=== PATIENT | female | born 1955 | race Caucasian/White ===

== ENCOUNTER → 2025-01-01 07:54 | Outpatient (REF) | payer BC, SELFPAY | LOC: PET 07:54 | PROVIDERS: ATTENDING PHYSICIAN Internal Medicine Hematology & Oncology | DX: C26.9 Malignant neoplasm of ill-defined sites within the digestive system (principal); C79.51 Secondary malignant neoplasm of bone | CPT/HCPCS: 78815; A9552 ==

== ENCOUNTER 2025-01-14 07:02 | Inpatient (IN) | payer BC, MEDICARE, SELFPAY ==
[2025-01-13] VITALS (9 sets, daily range): BP systolic 117–138; BP diastolic 73–87; BMI 23.9
[2025-01-13 11:10] LABS: % Basophils 0.6 % (0-2); % Eosinophils 0.3 % (0-6); % Immature Granulocytes 0.6 % (0-0.5); % Lymphocytes 12.1 % (20.5-51.1); % Monocytes 7.5 % (1.7-9.3); % Neutrophils 78.9 % (42.2-75.2); Absolute Basophils 0.1 10^3/uL (0-0.2); Absolute Immature Granulocytes 0.1 10^3/uL (0-0.05); Absolute Lymphocytes 1.5 10^3/uL (1.2-3.4); Absolute Monocytes 0.9 10^3/uL (0.1-0.6); Absolute Neutrophils 9.8 10^3/uL (1.4-6.5); Hematocrit 31.2 % (37.0-47.0); Hemoglobin 9.9 g/dL (12.0-16.0); Mean Corp Hgb Conc. 31.7 g/dL (33.0-37.0); Mean Corpuscular Hgb 26.5 pg (27.0-31.0); Mean Corpuscular Volume 83.6 fL (81.0-99.0); Mean Platelet Volume 10.3 fL (7.4-10.4); Nucleated Red Blood Cells % 0 %; Platelet Count 260 10^3/uL (130-400); Red Blood Cell Count 3.73 10^6/uL (4.20-5.40); Red Cell Dist. Width 16.4 % (11.5-14.5); White Blood Cell Count 12.4 10^3/uL (4.8-10.8)
[2025-01-13 11:21] LABS: ALT (SGPT) 22 U/L (0-35); AST (SGOT) 35 U/L (14-36); Albumin 3.7 g/dl (3.5-5.0); Alkaline Phosphatase 654 U/L (38-126); Blood Urea Nitrogen 16 mg/dl (7-17); Calcium 9.3 mg/dl (8.4-10.2); Carbon Dioxide 28 mmol/L (22-30); Chloride 99 mmol/L (98-107); Glucose 122 mg/dl (70-99); Lipase 37 U/L (23-300); Potassium 4.9 mmol/L (3.5-5.1); Sodium 134 mmol/L (135-145); Total Protein 6.4 g/dl (6.3-8.2); eGFR > 60.00
[2025-01-13 11:35] LABS: COVID-19 Antigen Negative (Negative)
[2025-01-13] MEDS: ZOFRAN 4 MG IV (11:50)
--- NOTE | 2025-01-13 12:09 | ED.GENMED ---
History of Present Illness
<Guy Scott DO - Last Filed: 01/13/25 13:09>
General
Chief Complaint: Weakness
Source: patient, spouse and other
Exam Limitations: none
Time Seen by Provider: 01/13/25 11:00
Nursing documentation reviewed up to this point in time: agreed with
History of Present Illness
History of Present Illness:
69-year-old female referred from radiation oncology recently diagnosed with metastatic cancer unknown primary working with Dr. Ritter scheduled to see Dr. Nick this week she had 2 radiation treatments to her lumbar spine, had a bone scan
recently, around 130 had some weakness of right leg pain in her low back, got radiation today practitioner referred her here for an urgent MRI of the thoracic spine tells me that her weakness is actually improved she is able to lift her legs up off
the bed now,
Review of Systems
<Guy Scott DO - Last Filed: 01/13/25 13:09>
Review of Systems
All Other Systems: Not applicable
Constitutional: Reports fatigue
ABD/GI: Reports nausea
Neurological: Reports weakness
Phy Exam
<Guy Scott DO - Last Filed: 01/13/25 13:09>
Physical Exam
Physical Exam:
Physical Exam
General: no apparent distress, not acutely ill
Neck: No jaundice
Heart: s1/s2 regular rate and rhythm, no murmur. equal radial pulses.
Lungs: no acute respiratory distress. clear bilaterally
Abdomen: Soft nontender
Neuro: alert and oriented. Able to lift her legs off the bed symmetric ankle refill
Skin: no rash
Psychiatric: well kept. interactive and cooperative
Extremities: no edema.
Course
<Guy Scott DO - Last Filed: 01/13/25 13:09>
Orders/Labs/Results
Orders:
Orders
01/13/25 Breakfast
Cholesterol Lowering
At Your Request: Limited Participation
Cholesterol Lowering: Sodium, 2 Gram
01/13/25 10:46
Electrocardiogram (*1) Urgent
Reason for Study: Fatigue / Weakness
EKG- Treatment ONCE
01/13/25 10:55
COVID-19 Antigen Urgent
Source: Nasal Swab
Complete Blood Count/With Diff Urgent
Comprehensive Metabolic Panel Urgent
Ferritin Urgent
Comment: ADD ON
Folate Urgent
Comment: ADD ON
Iron Urgent
Comment: ADD ON
Lipase Urgent
Magnesium Urgent
Comment: ADD ON
TSH Reflex To Free T4 Urgent
Vitamin B12 Urgent
Comment: ADD ON
Influenza A+B Rapid Molecular Urgent
GEOVANNA Source: Nasal Swab
Specimen Description:
01/13/25 11:28
Add On- LAB Urgent
Tests Added?: magnesium
Ondansetron Injectable [Zofran] 4 mg IV NOW STA
01/13/25 11:32
MR Thoracic Spine W/o & With Stat
Comment:
Reason For Exam: leg weaknesss, mets
OK for patient to be off Cardiac Monitoring for MRI: Yes
Recent pill cam endoscopy?: No
01/13/25 11:33
Promethazine [Phenergan] 25 mg 0.9% Sodium Chloride 50 ml [Nss] 50 ml IV NOW
01/13/25 11:40
Bladder Scan- Treatment ONCE
01/13/25 15:30
HYDROmorphone [Dilaudid] 0.5 mg IV NOW STA
01/13/25 17:00
0.9% Sodium Chloride 500 ml [Nss] 500 ml IV 100 mls/hr
01/13/25 17:07
Add On- LAB Stat
Tests Added?: iron, b12, ferritin, folate
01/13/25 17:08
Admit/Transfer Patient As Directed
Co-Sign Provider:
Level of Care: Observation services
Assign to:: Telemetry
Physician / Group: len
Diagnosis: weakness
Reason for Telemetry: Arrhythmia
Date to Stop Telemetry: 01/16/25
Time to Stop Telemetry: 11:00
PRN Pain Medication Management As Directed
May give lesser potent ordered pain med per pt: Yes
preference::
Protocol:: Medication orders for pain may be administered in a
manner that supports deferring to patient preference
when the pt is:
- Requesting an ordered lesser potent pain medication.
Least to most potent pain medications are defined
as: acetaminophen < NSAID < tramadol < opioids
(morphine, oxycodone, hydromorphone).
- Requesting a lesser dose of the same medication IF
ORDERED.
- Requesting a less intrusive route of administration
if both routes are prescribed by the provider (PO <
IV).
01/13/25 17:09
Code Status As Directed
Resuscitation Status: Full Code
01/13/25 17:15
Colon Surgery Consult [ColoRectal Surgery Consult] Routine
Consulting Provider: Stef Nick
Was physician already notified: Yes
ONCOLOGY CONSULT Routine
Consulting Provider: Jose Ritter
Was physician already notified: Yes
01/13/25 18:13
MR Brain W/o & With Contrast Routine
Reason For Exam: weakness
Recent pill cam endoscopy?: No
MR Lumbar W/o & With Contrast Routine
Reason For Exam: weakness
Recent pill cam endoscopy?: No
01/13/25 18:18
Acetaminophen [Tylenol] 650 mg PO Q4HPRN PRN
Bisacodyl [Dulcolax] 10 mg RECTAL [id number] PRN
Docusate W/Senna [Senokot-S] 1 tablet PO BIDPRN PRN
Enoxaparin Sodium [Lovenox] 40 mg SC QPM
Polyethylene Glycol Powder [Miralax] 17 grams PO DAILYPRN PRN
Prochlorperazine [Compazine] 5 mg PO TIDPRN PRN
01/13/25 18:18
Activity As Directed
Activity Level: As Tolerated
Vital Signs As Directed
Frequency: Per unit guidelines
DX Deep Vein Thrombosis Video Routine
01/13/25 18:23
Morphine Sulfate 30 mg PO Q4HPRN PRN
01/13/25 20:00
Morphine Sulfate Extended Rel. [Ms Contin (Extended Release)] 15 mg PO Q12
01/14/25 06:00
Complete Blood Count/No Diff IN AM
Occupational Therapy Consult [Ot Eval And Treat] IN AM
Physical Therapy Consult [Pt Eval And Treat] IN AM
Activity Level: As Tolerated
01/14/25 08:00
Ascorbic Acid [Vitamin C] 500 mg PO DAILY
Cholecalciferol (Vitamin D3) [VITAMIN D3 (cholecalciferol)] 50 mcg PO DAILY
Lisinopril [Zestril] 5 mg PO DAILY
Meloxicam [Mobic] 15 mg PO DAILY
Multivitamin [Theragran] 1 tablet PO DAILY
Polyethylene Glycol Powder [Miralax] 17 grams PO Q72H
Sennosides [Senokot] 17.2 mg PO DAILY
Zinc 50mg (Zinc Sulfate 220mg) [Zinc] 50 mg PO DAILY
01/16/25 11:00
DC Protocol for Telemetry ONCE
Abnormal Lab Results
01/13/25
10:55
WBC 12.4 H 10^3/uL
(4.8-10.8)
RBC 3.73 L 10^6/uL
(4.20-5.40)
Hgb 9.9 L g/dL
(12.0-16.0)
Hct 31.2 L %
(37.0-47.0)
MCH 26.5 L pg
(27.0-31.0)
MCHC 31.7 L g/dL
(33.0-37.0)
RDW 16.4 H %
(11.5-14.5)
Abs Immat Gran (auto) 0.1 H 10^3/uL
(0-0.05)
Absolute Neuts (auto) 9.8 H 10^3/uL
(1.4-6.5)
Absolute Monos (auto) 0.9 H 10^3/uL
(0.1-0.6)
Immature Gran % 0.6 H %
(0-0.5)
Neutrophils % 78.9 H %
(42.2-75.2)
Lymphocytes % 12.1 L %
(20.5-51.1)
Sodium 134 L mmol/L
(135-145)
Creatinine 0.5 L mg/dL
(0.6-1.0)
Glucose 122 H mg/dl
(70-99)
Ferritin 367.0 H ng/ml
(11.1-264.0)
Alkaline Phosphatase 654 H U/L
(38-126)
01/13/25 10:55
01/13/25 10:55
Vital Signs
Initial and Last Documented VS:
Initial Vital Signs
Temp Pulse Resp BP Pulse Ox
97.9 F 108 18 138/84 100
01/13/25 10:34 01/13/25 10:34 01/13/25 10:34 01/13/25 10:34 01/13/25 10:34
Last Documented Vital Signs
Temp Pulse Resp BP Pulse Ox
98.2 F 109 18 122/74 98
01/13/25 18:34 01/13/25 18:34 01/13/25 18:34 01/13/25 18:34 01/13/25 18:34
<Maulik Sarah MD - Last Filed: 01/13/25 19:11>
Orders/Labs/Results
Orders:
Orders
01/13/25 Breakfast
Cholesterol Lowering
At Your Request: Limited Participation
Cholesterol Lowering: Sodium, 2 Gram
01/13/25 10:46
Electrocardiogram (*1) Urgent
Reason for Study: Fatigue / Weakness
EKG- Treatment ONCE
01/13/25 10:55
COVID-19 Antigen Urgent
Source: Nasal Swab
Complete Blood Count/With Diff Urgent
Comprehensive Metabolic Panel Urgent
Ferritin Urgent
Comment: ADD ON
Folate Urgent
Comment: ADD ON
Iron Urgent
Comment: ADD ON
Lipase Urgent
Magnesium Urgent
Comment: ADD ON
TSH Reflex To Free T4 Urgent
Vitamin B12 Urgent
Comment: ADD ON
Influenza A+B Rapid Molecular Urgent
GEOVANNA Source: Nasal Swab
Specimen Description:
01/13/25 11:28
Add On- LAB Urgent
Tests Added?: magnesium
Ondansetron Injectable [Zofran] 4 mg IV NOW STA
01/13/25 11:32
MR Thoracic Spine W/o & With Stat
Comment:
Reason For Exam: leg weaknesss, mets
OK for patient to be off Cardiac Monitoring for MRI: Yes
Recent pill cam endoscopy?: No
01/13/25 11:33
Promethazine [Phenergan] 25 mg 0.9% Sodium Chloride 50 ml [Nss] 50 ml IV NOW
01/13/25 11:40
Bladder Scan- Treatment ONCE
01/13/25 15:30
HYDROmorphone [Dilaudid] 0.5 mg IV NOW STA
01/13/25 17:00
0.9% Sodium Chloride 500 ml [Nss] 500 ml IV 100 mls/hr
01/13/25 17:07
Add On- LAB Stat
Tests Added?: iron, b12, ferritin, folate
01/13/25 17:08
Admit/Transfer Patient As Directed
Co-Sign Provider:
Level of Care: Observation services
Assign to:: Telemetry
Physician / Group: len
Diagnosis: weakness
Reason for Telemetry: Arrhythmia
Date to Stop Telemetry: 01/16/25
Time to Stop Telemetry: 11:00
PRN Pain Medication Management As Directed
May give lesser potent ordered pain med per pt: Yes
preference::
Protocol:: Medication orders for pain may be administered in a
manner that supports deferring to patient preference
when the pt is:
- Requesting an ordered lesser potent pain medication.
Least to most potent pain medications are defined
as: acetaminophen < NSAID < tramadol < opioids
(morphine, oxycodone, hydromorphone).
- Requesting a lesser dose of the same medication IF
ORDERED.
- Requesting a less intrusive route of administration
if both routes are prescribed by the provider (PO <
IV).
01/13/25 17:09
Code Status As Directed
Resuscitation Status: Full Code
01/13/25 17:15
Colon Surgery Consult [ColoRectal Surgery Consult] Routine
Consulting Provider: Stef Nick
Was physician already notified: Yes
ONCOLOGY CONSULT Routine
Consulting Provider: Jose Ritter
Was physician already notified: Yes
01/13/25 18:13
MR Brain W/o & With Contrast Routine
Reason For Exam: weakness
Recent pill cam endoscopy?: No
MR Lumbar W/o & With Contrast Routine
Reason For Exam: weakness
Recent pill cam endoscopy?: No
01/13/25 18:18
Acetaminophen [Tylenol] 650 mg PO Q4HPRN PRN
Bisacodyl [Dulcolax] 10 mg RECTAL [id number] PRN
Docusate W/Senna [Senokot-S] 1 tablet PO BIDPRN PRN
Enoxaparin Sodium [Lovenox] 40 mg SC QPM
Polyethylene Glycol Powder [Miralax] 17 grams PO DAILYPRN PRN
Prochlorperazine [Compazine] 5 mg PO TIDPRN PRN
01/13/25 18:18
Activity As Directed
Activity Level: As Tolerated
Vital Signs As Directed
Frequency: Per unit guidelines
DX Deep Vein Thrombosis Video Routine
01/13/25 18:23
Morphine Sulfate 30 mg PO Q4HPRN PRN
01/13/25 20:00
Morphine Sulfate Extended Rel. [Ms Contin (Extended Release)] 15 mg PO Q12
01/14/25 06:00
Complete Blood Count/No Diff IN AM
Occupational Therapy Consult [Ot Eval And Treat] IN AM
Physical Therapy Consult [Pt Eval And Treat] IN AM
Activity Level: As Tolerated
01/14/25 08:00
Ascorbic Acid [Vitamin C] 500 mg PO DAILY
Cholecalciferol (Vitamin D3) [VITAMIN D3 (cholecalciferol)] 50 mcg PO DAILY
Lisinopril [Zestril] 5 mg PO DAILY
Meloxicam [Mobic] 15 mg PO DAILY
Multivitamin [Theragran] 1 tablet PO DAILY
Polyethylene Glycol Powder [Miralax] 17 grams PO Q72H
Sennosides [Senokot] 17.2 mg PO DAILY
Zinc 50mg (Zinc Sulfate 220mg) [Zinc] 50 mg PO DAILY
01/16/25 11:00
DC Protocol for Telemetry ONCE
Abnormal Lab Results
01/13/25
10:55
WBC 12.4 H 10^3/uL
(4.8-10.8)
RBC 3.73 L 10^6/uL
(4.20-5.40)
Hgb 9.9 L g/dL
(12.0-16.0)
Hct 31.2 L %
(37.0-47.0)
MCH 26.5 L pg
(27.0-31.0)
MCHC 31.7 L g/dL
(33.0-37.0)
RDW 16.4 H %
(11.5-14.5)
Abs Immat Gran (auto) 0.1 H 10^3/uL
(0-0.05)
Absolute Neuts (auto) 9.8 H 10^3/uL
(1.4-6.5)
Absolute Monos (auto) 0.9 H 10^3/uL
(0.1-0.6)
Immature Gran % 0.6 H %
(0-0.5)
Neutrophils % 78.9 H %
(42.2-75.2)
Lymphocytes % 12.1 L %
(20.5-51.1)
Sodium 134 L mmol/L
(135-145)
Creatinine 0.5 L mg/dL
(0.6-1.0)
Glucose 122 H mg/dl
(70-99)
Ferritin 367.0 H ng/ml
(11.1-264.0)
Alkaline Phosphatase 654 H U/L
(38-126)
01/13/25 10:55
01/13/25 10:55
Vital Signs
Initial and Last Documented VS:
Initial Vital Signs
Temp Pulse Resp BP Pulse Ox
97.9 F 108 18 138/84 100
01/13/25 10:34 01/13/25 10:34 01/13/25 10:34 01/13/25 10:34 01/13/25 10:34
Last Documented Vital Signs
Temp Pulse Resp BP Pulse Ox
98.2 F 109 18 122/74 98
01/13/25 18:34 01/13/25 18:34 01/13/25 18:34 01/13/25 18:34 01/13/25 18:34
<Guy Scott DO - Last Filed: 01/13/25 13:09>
MDM/Problems Addressed
Differential Diagnosis Includes:
Deconditioning cord compression side effect from radiation progressive cancer
MDM/Problems Addressed:
Weakness nausea
Chronic conditions affecting care: Cancer
Acute Exacerbation and/or Progression of Chronic Illness: Cancer
<Guy Scott DO - Last Filed: 01/13/25 13:09>
*Radiology
Radiology exam reviewed: other
*Critical Care Note
Total Time (30-74mins, 75-104mins- exclusive of procedures): Not Applicable
<Maulik Sarah MD - Last Filed: 01/13/25 19:11>
Update Note
Update Note:
MRI thoracic spine report reviewed and discussed with patient, as well as her oncologist, and Dr. Ham. Decision made to admit the patient for further eval and treatment, including pain control, IV fluids, and further diagnostic
studies. Patient otherwise remains afebrile without any focal neurological deficit.
ED Attending Note
<Guy Scott DO - Last Filed: 01/13/25 13:09>
-
Portions of this chart may have been created with voice recognition software.� Occasional wrong word or��sound alike� substitutions may have occurred due to the inherent limitations of voice recognition software.
Discharge Plan
Departure
Patient Disposition: Admit
Date of Disposition: 01/13/25
Time of Disposition: 16:36
Admit to: Med/Surg
Presentation/result/management discussed w/ accepting MD/DO: Hospitalist
Discharge Problem:
Fracture of thoracic spine, Dehydration, Intractable back pain
Interventions
Interventions:
*Risk Screen - Suicide Last Done: 01/13/25 11:43
*General Assessment Last Done: 01/13/25 11:43
*Neglect/Abuse Screening Last Done: 01/13/25 11:43
*ED- Fall Risk Assessment Last Done: 01/13/25 11:43
*ED COVID-19 Vaccine History Last Done: 01/13/25 11:43
*Nursing Disposition Last Done: 01/13/25 18:13
ED- Cardiac Assessment Last Done: 01/13/25 12:35
ED- Neurological Assessment Last Done: 01/13/25 12:35
ED- Pulmonary Assessment Last Done: 01/13/25 12:35
Discharge Date and Time
Discharge Date/Time: 01/13/25 18:14
[2025-01-13 12:22] LABS: Magnesium 2.2 mg/dl (1.6-2.3)
[2025-01-13] MEDS: DILAUDID 0.5 MG IV (15:46)
--- NOTE | 2025-01-13 16:38 | HPS.HSE ---
Family Physician
-
Family Physician: NIKA Garcia
Chief Complaint
-
Tingling
weakness
History of Present Illness
69-year-old female with PMH for metastatic spine cancer on radiation since Sunday presented from radiation oncology with tingling feeling across her mid lower back for past two night and off balance and very weak for past two nights patient also
complained of poor oral intake.. she is requiring to move around at home due to the weakness. denied BRAN, dizzy or syncope. denied fever, chills, chest pain, sob. denied abdominal pain,n,v,d. stated abdominal bloating and constipation. patient is
also on narcotics. Patient denied any incontinence of bowel or bladder patient denied dysuria hematuria.
Admitting for further manage
Medical History
Past Medical History
Past Medical History: Reports Other
Additional Past Medical History:
Left bundle branch block, chest pain
Past Surgical History: Reports Other
Additional Past Surgical History:
Left hip surgery
Social History
Tobacco: Former Smoker
Alcohol: Occasional
Drug: None
Personal:
Living: With Family
Family History
Family History: Not pertinent
Allergies / Home Medications
Allergies reflects when Allergies were last updated in [facility].
Home Medications with original date entered in [facility]
Allergy/Medication List:
Allergies
Allergy/AdvReac Type Severity Reaction Status Date / Time
No Known Allergies Allergy Verified 01/13/25 10:44
Home Medications
ascorbic acid (vitamin C) 500 mg tablet (Vitamin C) 500 mg PO DAILY 01/13/25
cholecalciferol (vitamin D3) 50 mcg (2,000 unit) tablet (Vitamin D3) 50 mcg PO DAILY 01/13/25
glucosamine [id number] elke 1,500 mg-400 unit-100 mg tablet (Osteo Bi-Flex (5-Loxin)) 1 tab PO DAILY 01/13/25
lisinopril 5 mg tablet 5 mg PO DAILY 01/13/25
meloxicam 15 mg tablet 15 mg PO DAILY 01/13/25
morphine 15 mg tablet,extended release 15 mg PO Q12H 01/13/25
morphine 30 mg immediate release tablet 30 mg PO Q4HPRN PRN severe pain 01/13/25
polyethylene glycol 3350 17 gram oral powder packet (Miralax) 17 g PO Q72H 01/13/25
prochlorperazine maleate 5 mg tablet 5 mg PO TIDPRN PRN nausea 01/13/25
sennosides 8.6 mg tablet (senna) 17.2 mg PO DAILY 01/13/25
therapeutic multivitamin 1 tab PO DAILY 01/13/25
vitamin A-vitamin C-vit E-min tablet 1 tab PO DAILY 01/13/25
zinc sulfate 50 mg zinc (220 mg) tablet 50 mg PO DAILY 01/13/25
Review of Systems
-
Constitutional: Reports No Symptoms
EENT: Reports No Symptoms
Respiratory: Reports No Symptoms
Cardiac: Reports No Symptoms
Abdomen/GI: Reports No Symptoms
: Reports No Symptoms
Musculoskeletal: Reports No Symptoms
Skin: Reports No Symptoms
Neurological: Reports No Symptoms and Weakness (Lower extremities weakness, tingling across the lower back )
Endocrine: Reports No Symptoms
Hematologic/Lymphatic: Reports No Symptoms
Psych: Reports No Symptoms
Physical Exam
Vital Signs
Vital Signs
Temp Pulse Resp BP Pulse Ox
97.9 F 106 16 126/73 98
01/13/25 10:34 01/13/25 14:45 01/13/25 14:45 01/13/25 12:00 01/13/25 14:45
Physical Exam
General: Well Developed, Well Nourished and No Apparent Distress
HEENT: NormoCephalic, Moist mucous membranes and Atraumatic
Respiratory: Clear
Cardiac: S1/S2 and Regular Rhythm; No Murmur or Rub
GI: Soft, Non Tender, Non Distended and Normal Bowel Sounds; No Organomegaly
Rectal: Deferred by Provider
Musculoskeletal: No Clubbing, No Cyanosis and No Edema
Skin: No Rash
Neuro: AO x 3 and Nonfocal/grossly intact
Psych: Calm
Laboratory Results
-
01/13/25 10:55
01/13/25 10:55
Laboratory Results
Total Bilirubin 1.0 mg/dl (0.2-1.3) 01/13/25 10:55
AST 35 U/L (14-36) 01/13/25 10:55
ALT 22 U/L (0-35) 01/13/25 10:55
Alkaline Phosphatase 654 U/L (38-126) H 01/13/25 10:55
Lipase 37 U/L (23-300) 01/13/25 10:55
Data Reviewed
-
Diagnostic Radiology: Report Reviewed by me
Lab Data: Labs Reviewed by me
Impression/Plan
-
# Lower extremities weakness/tingling
#metastatic spine disease
-MRI thoracic spine here is extensive osseous metastatic disease throughout the thoracic spine.There is a mild compression deformity of T7 with 2 mm retropulsion and a moderate compression deformity of T8 with 3 mm retropulsion secondary to osseous
metastasis. At these levels there is extension into the posterior elements with slight extension into the epidural space on the right. There is resultant severe canal stenosis at the T8 level with severe bilateral neuroforaminal narrowing at T8-T9.
There is additional mild canal stenosis at T7 with severe right-sided neuroforaminal narrowing at T7-T8.There is no definite cord signal abnormality.
-Will obtain MRI of lumbar and brain
-Pain management from home continued
-PT/OT consult
-oncology and colorectal consulted.
# Leukocytosis likely from metastatic disease
-Patient is afebrile
-Continue to monitor
# Anemia likely from chronic disease
-Obtain iron panel, B12, ferritin
# Tachycardia likely dehydration
-Fluids continued
-EKG with sinus tach
-Continue to monitor heart rate
# Essential hypertension
-Lisinopril continued
# DVT prophylaxis
-Lovenox subcu
# CODE STATUS full code
-
[2025-01-13] MEDS: NSS 500 IV (16:53)
--- NOTE | 2025-01-13 18:20 | PTCARENOTE ---
Patient received to room 419-02 from ED. Patient transferred into bed by nursing staff. Patient oriented to room and call chavira in reach.
[2025-01-13 18:26] LABS: Iron 39 ug/dl (37-170)
--- NOTE | 2025-01-13 18:31 | W.PN.UPDATE ---
Update Note
Progress Note Update
This is an addendum to the H&P written by Daphney Styles on 01/13/2025.� Patient seen and examined independently with [facility].
69-year-old female past medical history of recently diagnosed spinal metastases unknown primary status post bone biopsy, prior MRI imaging, 2 radiation treatments for the lumbar spine since Sunday, HTN,�presenting here for weakness of the bilateral
lower extremities and tingling across her back for the past 2 days also with some numbness in the groin.� No other cauda equina symptoms such as urinary fecal incontinence.� Only constipation but had a bowel movement today.� She was sent in for
urgent thoracic MRI.� Patient with abdominal bloating.
Patient tachycardic.� EKG shows sinus tachycardia.
Labs show leukocytosis.� Anemia.
PET scan from 01/01 shows extensive hypermetabolic lesions throughout the cervical, thoracic and lumbar spine, left glenoid fossa, scapula, inferior right scapula, bilateral proximal humeri, sternum, posterior left rib, posterior left 10th rib,
bilateral sacral ala, bilateral iliac bones, as well as anterior right hepatic lobe, upper rectum/rectosigmoid junction.
Concern that primary source of metastases could be rectum.
Oncology recommending MRI brain with and without contrast.� Also check MRI lumbar spine.� She is supposed to see colorectal surgery in 2 days for�consultation for nonurgent potential flexible sigmoidoscopy or colonoscopy.
IV fluids.
Oncology and Colorectal Surgery consulted.�
[2025-01-13 19:34] LABS: Folate > 20.0 ng/ml (2.76-20); Vitamin B12 985 pg/ml (239-931)
[2025-01-13] MEDS: MS CONTIN (EXTENDED RELEASE) 15 MG PO (19:53)
[2025-01-13] MEDS: LOVENOX 40 MG SC (20:58)
[2025-01-13] MEDS: COMPAZINE 5 MG PO (23:47)
[2025-01-14] MEDS: MORPHINE SULFATE 30 MG PO (02:37)
[2025-01-14] MEDS: NSS IV ×3 (02:45→13:48)
[2025-01-14 03:00] VITALS: BP 119/83
[2025-01-14 07:00] VITALS: BP 123/78
[2025-01-14] MEDS: NSS 1000 IV ×2 (07:07→19:44)
[2025-01-14 08:12] LABS: Hematocrit 31.3 % (37.0-47.0); Hemoglobin 9.9 g/dL (12.0-16.0); Mean Corp Hgb Conc. 31.6 g/dL (33.0-37.0); Mean Corpuscular Hgb 26.7 pg (27.0-31.0); Mean Corpuscular Volume 84.4 fL (81.0-99.0); Mean Platelet Volume 11.1 fL (7.4-10.4); Platelet Count 278 10^3/uL (130-400); Red Blood Cell Count 3.71 10^6/uL (4.20-5.40); Red Cell Dist. Width 16.7 % (11.5-14.5); White Blood Cell Count 12.3 10^3/uL (4.8-10.8)
[2025-01-14] MEDS: MOBIC 15 MG PO (08:17)
[2025-01-14] MEDS: SENOKOT 17.2 MG PO (08:17)
[2025-01-14] MEDS: VITAMIN C 500 MG PO (08:17)
[2025-01-14] MEDS: VITAMIN D3 (cholecalciferol) 50 MCG PO (08:17)
[2025-01-14] MEDS: MIRALAX 17 GRAMS PO (08:17)
[2025-01-14] MEDS: THERAGRAN 1 TABLET PO (08:17)
[2025-01-14] MEDS: ZINC 50 MG PO (08:18)
[2025-01-14] MEDS: MS CONTIN (EXTENDED RELEASE) 15 MG PO ×2 (08:18→19:44)
[2025-01-14] MEDS: ZESTRIL 5 MG PO (08:18)
[2025-01-14] MEDS: DECADRON 8 MG PO ×2 (09:17→19:43)
--- NOTE | 2025-01-14 10:40 | CON.ONC ---
Addendum entered and electronically signed by Marco Dai MD 01/14/25 14:05:
TSPINE MRI:
There is extensive osseous metastatic disease throughout the thoracic spine.
There is a mild compression deformity of T7 with 2 mm retropulsion and a moderate compression deformity of T8 with 3 mm retropulsion secondary to osseous metastasis. At these levels there is extension into the posterior elements with slight
extension into the epidural space on the right. There is resultant severe canal stenosis at the T8 level with severe bilateral neuroforaminal narrowing at T8-T9. There is additional mild canal stenosis at T7 with severe right-sided neuroforaminal
narrowing at T7-T8.
There is no definite cord signal abnormality.
Original Note:
Impression
Impression
69 year old female
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
Weakness
Intractable Back Pain
Plan
Plan
#Stage IV Metastatic Cancer of Unknown Primary
- Patient is currently receiving palliative radiation at this time, s/p 2 sessions.
- Colorectal consulted, may do sigmoidoscopy/colonoscopy for possible primary tumor of the rectum
- Pending Brain/Lumbar MRI w/ and w/o ordered
#Weakness
- Improved since admission, likely component of edema from radiation vs. progression of invasive metastatic disease
- ordered Dexamethasone 8mg Q12. MRI Brain/Lumbar ordered as above
#Intractable Back Pain, multifactorial (Radiation, metastatic disease, compression fracture)
- Pain managed with Morphine/meloxicam, Dilaudid prn
- C/w current regimen
Patient History
History of Present Illness
Tonie is a 69 year old female with recently identified metastatic cancer of unknown primary origin who was sent to the ED for complaints of acute BL LE weakness and worsening back pain.
She has thus far received 2 rounds of palliative radiation to the thoracic spine for metastatic disease in the weeks prior to presentation. On the morning of presentation to the hospital she developed sudden weakness in her BL LE requiring her to
lower herself down to the ground. She reports back pain in the region of recent radiation treatment, but none in the legs. There was no loss of bowel or bladder function or incontinence. She did not lose consciousness or hit her head. There was no
seizure activity. A recent PET scan from December of 2024 demonstrates significant metastatic disease and thoracic MRI demonstrates metastatic lesions at T7-9 extending into the posterior elements and R aspect of epidural space, along with
compression deformities w/ retropulsion at T7-8.
Presently she reports an improvement in her symptoms, stating she now feels tingling only, but no numbness in the BL LE. Her back pain has improved from a 7-8/10 to a 6/10 with current pain medication. Her only acute complaint at this time is
abdominal bloating and nausea. She denies vomiting, abdominal pain, diarrhea.
Past-Medical/Surgical History
PMHx: Stage IV Metastatic Cancer of Unknown Primary currently receiving palliative radiation treatment, intractable back pain, osteoarthritis, Chronic LBBB
PSx: , Parathyroidectomy for nodules (benign), laser glaucoma surgery, bone biopsy
Patient Medication
�Medication �Instructions �Recorded �Confirmed �Last Taken �Type
ascorbic acid (vitamin C) 500 mg 500 mg PO DAILY Supplement 01/13/25 01/13/25 Unknown History
tablet (Vitamin C)
cholecalciferol (vitamin D3) 50 50 mcg PO DAILY Supplement 01/13/25 01/13/25 Unknown History
mcg (2,000 unit) tablet (Vitamin
D3)
glucosamine [id number] 1 tab PO DAILY Supplement 01/13/25 01/13/25 Unknown History
elke 1,500 mg-400 unit-100 mg
tablet (Osteo Bi-Flex (5-Loxin))
lisinopril 5 mg tablet 5 mg PO DAILY Blood Pressure 01/13/25 01/13/25 Unknown History
meloxicam 15 mg tablet 15 mg PO DAILY Pain 01/13/25 01/13/25 Unknown History
morphine 15 mg tablet,extended 15 mg PO Q12H Pain 01/13/25 01/13/25 Unknown History
release
morphine 30 mg immediate release 30 mg PO Q4HPRN PRN severe pain 01/13/25 01/13/25 Unknown History
tablet
polyethylene glycol 3350 17 gram 17 g PO Q72H Constipation 01/13/25 01/13/25 Unknown History
oral powder packet (Miralax)
prochlorperazine maleate 5 mg 5 mg PO TIDPRN PRN nausea 01/13/25 01/13/25 Unknown History
tablet
sennosides 8.6 mg tablet (senna) 17.2 mg PO DAILY Constipation 01/13/25 01/13/25 Unknown History
therapeutic multivitamin 1 tab PO DAILY Supplement 01/13/25 01/13/25 Unknown History
vitamin A-vitamin C-vit E-min 1 tab PO DAILY Supplement 01/13/25 01/13/25 Unknown History
tablet
zinc sulfate 50 mg zinc (220 mg) 50 mg PO DAILY Supplement 01/13/25 01/13/25 Unknown History
tablet
Active Medications
Generic Name Dose Route Start Last Admin
Trade Name Freq PRN Reason Stop Dose Admin
Acetaminophen 650 mg 01/13/25 18:18
Acetaminophen 325 Mg Tablet PO 02/10/25 18:17
Q4HPRN PRN
mild pain/BRAN/temp> 100.4F
Ascorbic Acid 500 mg 01/14/25 08:00 01/14/25 08:17
Ascorbic Acid 500 Mg Tablet PO 02/11/25 07:59 500 mg
DAILY MIRLANDE Administration
Bisacodyl 10 mg 01/13/25 18:18
Bisacodyl 10 Mg Rectal Suppository RECTAL 02/10/25 18:17
[id number] PRN
constipation
Cholecalciferol 50 mcg 01/14/25 08:00 01/14/25 08:17
Cholecalciferol (Vitamin D3) 50 Mcg Tablet (2,000 Units) PO 02/11/25 07:59 50 mcg
DAILY MIRLANDE Administration
Dexamethasone 8 mg 01/14/25 09:00 01/14/25 09:17
Dexamethasone 4 Mg Tablet PO 02/11/25 08:59 8 mg
Q12 MIRLANDE Administration
Enoxaparin Sodium 40 mg 01/13/25 18:18 01/13/25 20:58
Enoxaparin Sodium 40 Mg/0.4 Ml Syringe SC 02/10/25 18:17 40 mg
QPM MIRLANDE Administration
Sodium Chloride 1,000 mls @ 100 mls/hr 01/14/25 03:15 01/14/25 07:07
Nss IV 1,000 mls
.Q10H MIRLANDE Administration
Lisinopril 5 mg 01/14/25 08:00 01/14/25 08:18
Lisinopril 5 Mg Tablet PO 02/11/25 07:59 5 mg
DAILY MIRLANDE Administration
Meloxicam 15 mg 01/14/25 08:00 01/14/25 08:17
Meloxicam (Mobic) 15 Mg Tablet PO 02/11/25 07:59 15 mg
DAILY MIRLANDE Administration
Morphine Sulfate 30 mg 01/13/25 18:23 01/14/25 02:37
Morphine 15 Mg Immediate Release Tablet PO 01/27/25 18:22 30 mg
Q4HPRN PRN Administration
severe pain
Morphine Sulfate 15 mg 01/13/25 20:00 01/14/25 08:18
Morphine 15 Mg Extended Release Tablet PO 01/27/25 19:59 15 mg
Q12 MIRLANDE Administration
Multivitamins Therapeutic 1 tablet 01/14/25 08:00 01/14/25 08:17
Multivitamin Tablet PO 02/11/25 07:59 1 tablet
DAILY MIRLANDE Administration
Polyethylene Glycol 17 grams 01/14/25 08:00 01/14/25 08:17
Polyethylene Glycol Powder 17 Grams Packet PO 02/11/25 07:59 17 grams
Q72H MIRLANDE Administration
Polyethylene Glycol 17 grams 01/13/25 18:18
Polyethylene Glycol Powder 17 Grams Packet PO 02/10/25 18:17
DAILYPRN PRN
constipation
Prochlorperazine Maleate 5 mg 03/11/25 18:18 01/13/25 23:47
Prochlorperazine 5 Mg Tablet PO 02/10/25 18:17 5 mg
TIDPRN PRN Administration
nausea
Senna/Docusate Sodium 1 tablet 01/13/25 18:18
Docusate W/Senna (Medina-Colace) Tablet PO 02/10/25 18:17
BIDPRN PRN
constipation
Sennosides 17.2 mg 01/14/25 08:00 01/14/25 08:17
Sennosides (Senokot) 8.6 Mg Tablet PO 02/11/25 07:59 17.2 mg
DAILY MIRLANDE Administration
Sodium Chloride 0 flush 01/13/25 19:00
Sodium Chloride 0.9% (Flush) Syringe IV 02/10/25 18:59
PER PROTOCOL MIRLANDE
Zinc 50 mg 01/14/25 08:00 01/14/25 08:18
Zinc 50 Mg (Zinc Sulfate 220 Mg) Capsule PO 02/11/25 07:59 50 mg
DAILY MIRLANDE Administration
Review of Systems
-
History Source: Patient
All Other Systems: Reviewed and Negative
Constitutional: Reports Weight Loss, No Appetite and Weakness; Denies Fever, Night Sweats or Chills
EENT: Reports No Symptoms
Respiratory: Denies Cough, Hemoptysis, Trouble Breathing or Wheezing
Cardiac: Denies Chest Pain, Diaphoresis, Palpitations or Syncope
GI: Reports Nausea, Constipated and Bloated; Denies Abdominal Pain, Vomiting, Diarrhea or Bloody Stools
Breast: Reports No Symptoms
: Reports No Symptoms
Musculoskeletal: Reports Other (Severe Back pain)
Skin: Denies Itching or Rash
Neuro: Reports Other (Tingling BL LE); Denies Dizzy, Headache or Numbness
Endocrine: Reports No Symptoms
Hematologic/Lymphatic: Denies Bleeding or Swollen Glands
Allergy / Immunology: Reports No Symptoms
Psych: Reports No Symptoms
Physical Exam
-
General: Well Developed, Well Nourished, No Apparent Distress and Appears Chronically Ill
HEENT: Moist Mucous Membranes
Cardiology: Normal Sinus Rhythm, S1, S2 and No Murmur
Pulmonary: Clear; Negative Wheezes, Rales or Rhonchi
GI: Soft, Normal Bowel Sounds, Distended and No Organomegaly
Genito-Urinary: No Costovertebral Tenderness
Musculoskeletal: No Clubbing, No Cyanosis, No Edema and Other (Spinal tenderness at the T7-8 level with paraspinal muscle tenderness. )
Extremities: No C/C/E
Skin: Warm and Dry
Hematologic / Lymphatic: Lymphadenopathy (L supraclavicular)
Psych: Calm
Labs
Lab Results
WBC 12.3 10^3/uL (4.8-10.8) H 01/14/25 06:53
RBC 3.71 10^6/uL (4.20-5.40) L 01/14/25 06:53
Hgb 9.9 g/dL (12.0-16.0) L 01/14/25 06:53
Hct 31.3 % (37.0-47.0) L 01/14/25 06:53
MCV 84.4 fL (81.0-99.0) 01/14/25 06:53
MCH 26.7 pg (27.0-31.0) L 01/14/25 06:53
MCHC 31.6 g/dL (33.0-37.0) L 01/14/25 06:53
RDW 16.7 % (11.5-14.5) H 01/14/25 06:53
Plt Count 278 10^3/uL (130-400) 01/14/25 06:53
MPV 11.1 fL (7.4-10.4) H 01/14/25 06:53
Abs Immat Gran (auto) 0.1 10^3/uL (0-0.05) H 01/13/25 10:55
Absolute Neuts (auto) 9.8 10^3/uL (1.4-6.5) H 01/13/25 10:55
Absolute Lymphs (auto) 1.5 10^3/uL (1.2-3.4) 01/13/25 10:55
Absolute Monos (auto) 0.9 10^3/uL (0.1-0.6) H 01/13/25 10:55
Absolute Eos (auto) 0.0 10^3/uL (0-0.7) 01/13/25 10:55
Absolute Basos (auto) 0.1 10^3/uL (0-0.2) 01/13/25 10:55
Immature Gran % 0.6 % (0-0.5) H 01/13/25 10:55
Neutrophils % 78.9 % (42.2-75.2) H 01/13/25 10:55
Lymphocytes % 12.1 % (20.5-51.1) L 01/13/25 10:55
Monocytes % 7.5 % (1.7-9.3) 01/13/25 10:55
Eosinophils % 0.3 % (0-6) 01/13/25 10:55
Basophils % 0.6 % (0-2) 01/13/25 10:55
Creatinine 0.5 mg/dL (0.6-1.0) L 01/13/25 10:55
Vital Signs
Vital Signs
Temp Pulse Resp BP Pulse Ox
97.7 F 103 18 123/78 99
01/14/25 07:00 01/14/25 08:18 01/14/25 07:00 01/14/25 08:18 01/14/25 07:00
[2025-01-14 10:57] VITALS: BMI 23.9
[2025-01-14 11:00] VITALS: BP 108/70
--- NOTE | 2025-01-14 11:25 | CON.CRS ---
Consultation
-
Date/Time Consultation Requested: 01/13/2025, 17:15
Date/Time Consultation Performed: 01/14/2025, 08:00
Requesting Provider: Daphney Styles CRNP
Performing Provider: Dandy Nick MD
Reason for Consultation: rectal finding on PET
Medical History
-
Chief Complaint: weakness
History of Present Illness:
69-year-old female with a history of metastatic spine cancer who has been on radiation since 3 days ago presented from radiation oncology with tingling across her mid lower back and off balance for 2 days. She had recent imaging on a PET scan on
01/01/2025 which showed a hypermetabolic focus in the anterior right hepatic lobe and also a small focus of hypermetabolic activity in the region of the upper rectum and rectosigmoid junction. Because of these findings she had called our office and
had been scheduled with Dr. Nick for an office visit tomorrow. His plan was to perform a flexible sigmoidoscopy in the near future. We have been consulted given the finding on imaging above.
Past Medical History
Past Medical History: Other (Stage IV metastatic cancer unknown primary on radiation, back pain, osteoarthritis, left bundle branch block)
Past Surgical History: Other (, parathyroidectomy, laser glaucoma surgery, bone biopsy)
Social History
Tobacco: Former Smoker
Alcohol: Occasional
Drug: None
Personal:
Family History
Family History: Reviewed & Not Pertinent
Allergies / Home Medications
Allergy/AdvReac Type Severity Reaction Status Date / Time
No Known Allergies Allergy Verified 01/13/25 10:44
�Medication �Instructions �Recorded �Confirmed �Type
ascorbic acid (vitamin C) 500 mg 500 mg PO DAILY Supplement 01/13/25 01/13/25 History
tablet (Vitamin C)
cholecalciferol (vitamin D3) 50 50 mcg PO DAILY Supplement 01/13/25 01/13/25 History
mcg (2,000 unit) tablet (Vitamin
D3)
glucosamine [id number] 1 tab PO DAILY Supplement 01/13/25 01/13/25 History
elke 1,500 mg-400 unit-100 mg
tablet (Osteo Bi-Flex (5-Loxin))
lisinopril 5 mg tablet 5 mg PO DAILY Blood Pressure 01/13/25 01/13/25 History
meloxicam 15 mg tablet 15 mg PO DAILY Pain 01/13/25 01/13/25 History
morphine 15 mg tablet,extended 15 mg PO Q12H Pain 01/13/25 01/13/25 History
release
morphine 30 mg immediate release 30 mg PO Q4HPRN PRN severe pain 01/13/25 01/13/25 History
tablet
polyethylene glycol 3350 17 gram 17 g PO Q72H Constipation 01/13/25 01/13/25 History
oral powder packet (Miralax)
prochlorperazine maleate 5 mg 5 mg PO TIDPRN PRN nausea 01/13/25 01/13/25 History
tablet
sennosides 8.6 mg tablet (senna) 17.2 mg PO DAILY Constipation 01/13/25 01/13/25 History
therapeutic multivitamin 1 tab PO DAILY Supplement 01/13/25 01/13/25 History
vitamin A-vitamin C-vit E-min 1 tab PO DAILY Supplement 01/13/25 01/13/25 History
tablet
zinc sulfate 50 mg zinc (220 mg) 50 mg PO DAILY Supplement 01/13/25 01/13/25 History
tablet
Review of Systems
-
History Source: Patient
Constitutional: Other (Weakness)
Musculoskeletal: Other (Lower extremity tingling)
A 10 point review of systems was completed, and was negative except as per HPI.
Physical Exam
Vital Signs
Temp 98.0 F 01/14/25 11:00
Pulse 102 01/14/25 11:00
Resp Rate 18 01/14/25 11:00
Blood pressure 108/70 01/14/25 11:00
SaO2 95 01/14/25 11:00
01/13/25 01/14/25 01/15/25
06:59 06:59 06:59
Actual Weight 57.3 kg
Body Mass Index (BMI) 23.9
Lab Results / Allergies
01/14/25 06:53
01/13/25 10:55
WBC 12.3 10^3/uL (4.8-10.8) H 01/14/25 06:53
Hgb 9.9 g/dL (12.0-16.0) L 01/14/25 06:53
Hct 31.3 % (37.0-47.0) L 01/14/25 06:53
Plt Count 278 10^3/uL (130-400) 01/14/25 06:53
Abs Immat Gran (auto) 0.1 10^3/uL (0-0.05) H 01/13/25 10:55
Neutrophils % 78.9 % (42.2-75.2) H 01/13/25 10:55
Allergy/AdvReac Type Severity Reaction Status Date / Time
No Known Allergies Allergy Verified 01/13/25 10:44
Physical Exam
General: Well Developed, Well Nourished and No Apparent Distress
GI: Soft, Non Tender and Non Distended
Skin: Warm and Dry
Neuro: AO x 3
Data Reviewed
-
CT Scan: Image Personally Visualized and interpreted, Report Reviewed by me and Discussed with Patient
Labs: Labs Reviewed by me, Discussed with Physician and Discussed with Patient
Assessment / Plan
-
Assessment: 69-year-old female with stage IV cancer of unknown origin and a rectosigmoid finding on recent PET presents from radiation complaining of tingling across her mid lower back
Plan:
-Will plan for colonoscopy tomorrow tentatively around 11:00 to obtain a biopsy
-N.p.o. at midnight
-Enemas tomorrow morning
-Scheduled for a [facility] on [address] Nick
--- NOTE | 2025-01-14 12:31 | W.PN.HOSP.TC ---
Today's Communication/Plan
-
apprec onc/CRS
agree with steroids
PT/OT
colonoscopy tomorrow
Assessment / Plan
Assessment / Plan
pt is a 69 year old female
Lower extremities weakness/tingling--likely due to metastatic spine disease--no cord compression on T spine MRI--apprec onc--PT/OT--MRI of brain/LS spine pending--agree with starting steroids
metastatic disease unknown primary--suspect GI--apprec CRS--for colonoscopy tomorrow
Leukocytosis likely from metastatic disease--Patient is afebrile--Continue to monitor
Anemia likely from chronic disease--iron panel, B12, ferritin all without deficiency
Tachycardia likely dehydration---Fluids continued--EKG with sinus tach
Essential hypertension--Lisinopril continued
DVT prophylaxis--Lovenox subcu
CODE STATUS --full code
Anticipated Discharge: > 48 hours
Subjective/Interval History
-
Date of Service: January 14, 2025
pt c/o weakness--overwhelmed with diagnosis/no diagnosis
Objective Data
-
Labs:
Laboratory Results
01/14/25
06:53
WBC 12.3 H
Hgb 9.9 L
Hct 31.3 L
Plt Count 278
Vital Signs:
max temp for 24 hours
01/13/25
18:34
Temp 98.2 F
Vital Signs
Temp Pulse Resp BP Pulse Ox
98.0 F 102 18 108/70 95
01/14/25 11:00 01/14/25 11:00 01/14/25 11:00 01/14/25 11:00 01/14/25 11:00
I&O
01/13/25 01/14/25 01/15/25
06:59 06:59 06:59
Intake Total 1000 / 1000
Balance 1000 / 1000
Review of Systems
-
All other systems: Reviewed and negative
Neuro: Reports Weakness (tingling LEs)
Physical Exam
-
General: Well Developed, Well Nourished and No Apparent Distress
HEENT: Normocephalic and Atraumatic
Respiratory: Clear to Auscultation; Negative Wheezes or Rhonchi
Cardiac: Regular Rhythm, S1/S2, Gallop and Tachycardic
GI: Soft, Nontender, Nondistended and Normal Bowel Sounds
Musculoskeletal: No Clubbing, No Cyanosis and No Edema
Neuro: Other (moves legs under her own power)
Psych: Calm
[2025-01-14] MEDS: COMPAZINE 5 MG PO (13:40)
[2025-01-14 15:00] VITALS: BP 110/64
--- NOTE | 2025-01-14 15:04 | CM ---
Addendum entered by Rose Nichole 01/14/25 15:55:
Patient to be changed to INP status per physician.
Original Note:
Patient seen at bedside with physician. Patient stated that she lives with her family in a 2 story home with 1 step to enter. Patient PCP is Dr. Monique from [facility]. Patient uses the [facility] on [address] in [place]. Patient has a walker
that she lent out to someone else. Patient stated that she is overwhelmed by her diagnosis and that she would be having a number of tests prior to discharge to clarify primary source of CA. CM will continue to follow for discharge planning needs.
Plan; home with VN vs SNF
[2025-01-14] MEDS: LOVENOX 40 MG SC (17:07)
[2025-01-14 19:58] VITALS: BP 111/68
[2025-01-14 23:30] VITALS: BP 126/80
[2025-01-15] VITALS (11 sets, daily range): BP systolic 15–139; BP diastolic 68–86; PULSE 112
[2025-01-15] MEDS: NSS 1000 IV (06:38)
[2025-01-15 07:47] LABS: Hematocrit 29.3 % (37.0-47.0); Hemoglobin 9.1 g/dL (12.0-16.0); Mean Corp Hgb Conc. 31.1 g/dL (33.0-37.0); Mean Corpuscular Hgb 26.1 pg (27.0-31.0); Mean Corpuscular Volume 84.2 fL (81.0-99.0); Mean Platelet Volume 11.2 fL (7.4-10.4); Platelet Count 246 10^3/uL (130-400); Red Blood Cell Count 3.48 10^6/uL (4.20-5.40); Red Cell Dist. Width 16.8 % (11.5-14.5); White Blood Cell Count 13.8 10^3/uL (4.8-10.8)
--- NOTE | 2025-01-15 08:03 | W.PN.ONC2 ---
Today's Communication / Plan
-
Colonoscopy today, c/w pain meds & steroids
Impression
Impression
69 year old female
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
Weakness
Intractable Back Pain
Plan
Plan
#Stage IV Metastatic Cancer of Unknown Primary
- Patient is currently receiving palliative radiation at this time, s/p 2 sessions.
- MRI Brain demonstrated no MR evidence for intracranial metastases
- MRI Lumbar demonstrated extensive infiltrative osseous metastatic disease, multilevel degenerative changes of the lumbar spine including desiccation with diffuse bulge at the L2-3 level, desiccation with bulging at the L4-5 and L5-S1 level with
abutment of the L5 nerve root.
- scheduled for colonoscopy today, will follow results
#Weakness
- Likely component of edema from radiation vs. progression of invasive metastatic disease
- c/w Dexamethasone 8mg Q12 with eventual taper on discharge
#Intractable Back Pain, multifactorial (Radiation, metastatic disease, compression fracture)
- Pain managed with Morphine/meloxicam, Dilaudid prn, improved with added steroids
- C/w current regimen
Subjective/Objective
Chief Complaint
Back Pain secondary to metastatic disease/radiation
Subjective
She is feeling better overall, her pain is still present but improved. She is still feeling weak. She is prepping for a colonoscopy today.
Vital Signs:
Vital Signs
Temp Pulse Resp BP Pulse Ox
98.0 F 100 16 116/77 98
01/15/25 03:03 01/15/25 03:03 01/15/25 03:03 01/15/25 03:03 01/15/25 03:03
Lab Results:
Laboratory Data
WBC 13.8 10^3/uL (4.8-10.8) H 01/15/25 06:46
Hgb 9.1 g/dL (12.0-16.0) L 01/15/25 06:46
Plt Count 246 10^3/uL (130-400) 01/15/25 06:46
eGFR > 60.00 01/13/25 10:55
Physical Exam
HEENT: Moist Mucous Membranes
Cardiology: Normal Sinus Rhythm, S1 and S2
Pulmonary: Clear; No Wheezes, Rales or Rhonchi
GI: Soft and Normal Bowel Sounds
Extremities: No C/C/E
Review of Systems
Review of Systems
Constitutional: Denies Fever or Fatigue
Head: Denies Sore Throat
Respiratory: Denies Cough
Cardiovascular: Denies Chest Pain
Gastrointestinal: Denies Nausea/Vomiting
Genitourinary: Denies Hematuria
Skin: Denies Rash
Neurological: Reports Other (weakness); Denies Headache
[2025-01-15] MEDS: MOBIC 15 MG PO (08:26)
[2025-01-15] MEDS: ZESTRIL 5 MG PO (08:26)
[2025-01-15] MEDS: SENOKOT 17.2 MG PO (08:26)
[2025-01-15] MEDS: MS CONTIN (EXTENDED RELEASE) 15 MG PO ×2 (08:26→20:26)
[2025-01-15] MEDS: THERAGRAN 1 TABLET PO (08:26)
[2025-01-15] MEDS: VITAMIN C 500 MG PO (08:26)
[2025-01-15] MEDS: DECADRON 8 MG PO ×2 (08:26→20:26)
[2025-01-15] MEDS: ZINC 50 MG PO (08:26)
[2025-01-15] MEDS: VITAMIN D3 (cholecalciferol) 50 MCG PO (08:28)
[2025-01-15 08:52] LABS: Blood Urea Nitrogen 17 mg/dl (7-17); Calcium 8.4 mg/dl (8.4-10.2); Carbon Dioxide 26 mmol/L (22-30); Chloride 103 mmol/L (98-107); Estimated Creatinine Clearance 66 ml/min; Glucose 125 mg/dl (70-99); Sodium 135 mmol/L (135-145); eGFR > 60.00
--- NOTE | 2025-01-15 12:16 | CM ---
Addendum entered by Rose Nichole 01/15/25 14:58:
Patient seen at bedside. Patient present and confirmed INP status with patient. Patient has ability to obtain walker, and commode. Patient for further work up at this time. CM will continue to follow for discharge planning needs.
Plan; home with VN vs home with no needs
Original Note:
Patient out of room the therapy. Patient is now INP status.
--- NOTE | 2025-01-15 12:24 | W.PN.UPDATE ---
Update Note
Progress Note Update
Colonoscopy to splenic flexure with no neoplasia. Diverticular disease is present.
--- NOTE | 2025-01-15 14:22 | W.PN.HOSP.TC ---
Today's Communication/Plan
-
transfer to med/surg
cont steroids
port placement tomorrow
Assessment / Plan
Assessment / Plan
pt is a 69 year old female
Lower extremities weakness/tingling--likely due to metastatic spine disease--no cord compression on T spine, L spine MRI, or brain MRI--apprec onc--PT/OT--agree with steroids
metastatic disease unknown primary--suspect GI--apprec CRS--flex sig neg--port placement tomorrow--consider full colonoscopy
Leukocytosis likely from metastatic disease--Patient is afebrile--Continue to monitor
Anemia likely from chronic disease--iron panel, B12, ferritin all without deficiency
Tachycardia likely dehydration---Fluids continued--EKG with sinus tach
Essential hypertension--Lisinopril continued
DVT prophylaxis--Lovenox subcu
CODE STATUS --full code
Anticipated Discharge: 24 - 48 hours
Subjective/Interval History
-
Date of Service: January 15, 2025
pt without c/o--flex sig neg
Objective Data
-
Labs:
Laboratory Results
01/15/25
06:46
WBC 13.8 H
Hgb 9.1 L
Hct 29.3 L
Plt Count 246
Sodium 135
Potassium 4.0
Chloride 103
Carbon Dioxide 26
BUN 17
Creatinine 0.5 L
Glucose 125 H
Calcium 8.4
Vital Signs:
max temp for 24 hours
01/14/25
19:58
Temp 98.3 F
Vital Signs
Temp Pulse Resp BP Pulse Ox
97.5 F 98 15 130/75 98
01/15/25 12:44 01/15/25 12:44 01/15/25 12:44 01/15/25 12:44 01/15/25 12:44
I&O
01/14/25 01/15/25 01/16/25
06:59 06:59 06:59
Intake Total 999 / 999
Balance 999 / 999
Review of Systems
-
All other systems: Reviewed and negative
Physical Exam
-
General: Well Developed, Well Nourished and No Apparent Distress
HEENT: Normocephalic and Atraumatic; Negative Oxygen
Respiratory: Clear to Auscultation; Negative Wheezes or Rhonchi
Cardiac: Regular Rhythm and S1/S2; Negative Murmur
GI: Soft, Nontender, Nondistended and Normal Bowel Sounds
Musculoskeletal: No Clubbing, No Cyanosis and No Edema
Neuro: Awake and Alert
Psych: Calm
[2025-01-15] MEDS: LOVENOX 40 MG SC (17:18)
[2025-01-15] MEDS: MORPHINE SULFATE 30 MG PO (17:19)
[2025-01-16 06:00] VITALS: BMI 23.7
[2025-01-16 07:00] VITALS: BP 137/89
[2025-01-16 08:49] LABS: Hematocrit 28.6 % (37.0-47.0); Hemoglobin 9.3 g/dL (12.0-16.0); Mean Corp Hgb Conc. 32.5 g/dL (33.0-37.0); Mean Corpuscular Volume 83.1 fL (81.0-99.0); Mean Platelet Volume 11.7 fL (7.4-10.4); Platelet Count 266 10^3/uL (130-400); Red Blood Cell Count 3.44 10^6/uL (4.20-5.40); Red Cell Dist. Width 16.9 % (11.5-14.5); White Blood Cell Count 12.7 10^3/uL (4.8-10.8)
--- NOTE | 2025-01-16 08:57 | W.PN.ONC2 ---
Today's Communication / Plan
-
.
Impression
Impression
69 year old female p/w weakness, tingling, and uncontrolled back pain
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
extensive osseous mets, spine mets
undergoing XRT with Dr. Weaver
01/14 MRI brain no mets
01/15 flex sig no neoplasia
Weakness
Intractable Back Pain
Plan
Plan
resume palliative radiation upon discharge
c/w Dexamethasone 8mg Q12 with eventual taper on discharge -PPI while on steroids
pain management
optimize performance status -appreciate PT/OT/nutrition
plan for port placement
Has OP follow up with Dr. Ritter 01/23/2025
provided with updates and question answered
Subjective/Objective
Subjective
using morphine ER bid, PO morphine IR prn, dexamethasone, meloxicam for pain
using miralax for constipation
nausea from narcotics
Vital Signs:
Vital Signs
Temp Pulse Resp BP Pulse Ox
97.8 F 93 18 123/68 98
01/15/25 23:45 01/15/25 23:45 01/15/25 23:45 01/15/25 23:45 01/15/25 23:45
Lab Results:
Laboratory Data
WBC 12.7 10^3/uL (4.8-10.8) H 01/16/25 06:56
Hgb 9.3 g/dL (12.0-16.0) L 01/16/25 06:56
Plt Count 266 10^3/uL (130-400) 01/16/25 06:56
eGFR > 60.00 01/15/25 06:46
[2025-01-16 09:26] LABS: Blood Urea Nitrogen 20 mg/dl (7-17); Calcium 8.5 mg/dl (8.4-10.2); Carbon Dioxide 28 mmol/L (22-30); Chloride 104 mmol/L (98-107); Estimated Creatinine Clearance 66 ml/min; Glucose 135 mg/dl (70-99); Magnesium 2.1 mg/dl (1.6-2.3); Potassium 4.5 mmol/L (3.5-5.1); Sodium 136 mmol/L (135-145); eGFR > 60.00
[2025-01-16] MEDS: DECADRON 8 MG PO ×2 (09:38→20:58)
[2025-01-16] MEDS: SENOKOT 17.2 MG PO (09:39)
[2025-01-16] MEDS: ZINC 50 MG PO (09:39)
[2025-01-16] MEDS: MOBIC 15 MG PO (09:40)
[2025-01-16] MEDS: MS CONTIN (EXTENDED RELEASE) 15 MG PO ×2 (09:40→20:58)
[2025-01-16] MEDS: VITAMIN C 500 MG PO (09:40)
[2025-01-16] MEDS: VITAMIN D3 (cholecalciferol) 50 MCG PO (09:41)
[2025-01-16] MEDS: THERAGRAN 1 TABLET PO (09:41)
[2025-01-16] MEDS: ZESTRIL 5 MG PO (09:41)
--- NOTE | 2025-01-16 10:45 | W.PN.CRS1 ---
Today's Communication / Plan
-
port placement today
npo
Assessment/Plan
-
Assessment: 69-year-old female with stage IV cancer of unknown origin and a rectosigmoid finding on recent PET presents from radiation complaining of tingling across her mid lower back
01/15- flex sig with Dr. Nick. No pathology noted.
Plan:
-Plan for [id number]-dbva placement with Dr. Nick today
-N.p.o. for OR
Subjective Data
Subjective Data
Date of Service: January 16, 2025
Patient states her pain is controlled. She has no nausea or vomiting.
Objective Data
-
Vital Signs
Temp Pulse Resp BP Pulse Ox
98 F 105 19 137/89 99
01/16/25 07:00 01/16/25 07:00 01/16/25 07:00 01/16/25 07:00 01/16/25 07:00
Intake & Output
01/15/25 01/16/25 01/17/25
06:59 06:59 06:59
Intake Total 1860 / 1860 240 / 240
Balance 1860 / 1860 240 / 240
Intake:
Oral fluids 660 / 660 240 / 240
IV fluids (Total) 1200 / 1200
Other:
Number of approximated MODERATE 2 3
amounts of urine
Number of approximated LARGE 1
amounts of urine
Lab Results
01/16/25 06:56
01/16/25 06:56
Physical Exam
-
General: No Acute Distress and AOx3
Abdomen: Soft, Non Distended and Non Tender
Skin: Warm and Dry
[2025-01-16] MEDS: PROTONIX 40 MG PO (10:58)
[2025-01-16] MEDS: COMPAZINE 5 MG PO ×2 (10:58→16:05)
--- NOTE | 2025-01-16 12:30 | W.PN.HOSP.TC ---
Today's Communication/Plan
-
port placement today
Assessment / Plan
Assessment / Plan
pt is a 69 year old female
Lower extremities weakness/tingling--likely due to metastatic spine disease--no cord compression on T spine, L spine MRI, or brain MRI--apprec onc--PT/OT--agree with steroids
metastatic disease unknown primary--suspect GI--apprec CRS--flex sig neg--port placement today
Leukocytosis likely from metastatic disease--Patient is afebrile--Continue to monitor
Anemia likely from chronic disease--iron panel, B12, ferritin all without deficiency
Tachycardia likely dehydration---Fluids continued--EKG with sinus tach
Essential hypertension--Lisinopril continued
DVT prophylaxis--Lovenox subcu
CODE STATUS --full code
Anticipated Discharge: Within 24 hours
Subjective/Interval History
-
Date of Service: January 16, 2025
pt waiting for the OR for port placement
Objective Data
-
Labs:
Laboratory Results
01/16/25
06:56
WBC 12.7 H
Hgb 9.3 L
Hct 28.6 L
Plt Count 266
Sodium 136
Potassium 4.5
Chloride 104
Carbon Dioxide 28
BUN 20 H
Creatinine 0.5 L
Glucose 135 H
Calcium 8.5
Vital Signs:
max temp for 24 hours
01/15/25
15:00
Temp 98.1 F
Vital Signs
Temp Pulse Resp BP Pulse Ox
98 F 105 19 137/89 99
01/16/25 07:00 01/16/25 07:00 01/16/25 07:00 01/16/25 07:00 01/16/25 07:00
I&O
01/15/25 01/16/25 01/17/25
06:59 06:59 06:59
Intake Total 1859 240 / 240
Balance 1859 240 / 240
Review of Systems
-
All other systems: Reviewed and negative
Physical Exam
-
General: Well Developed, Well Nourished and No Apparent Distress
HEENT: Normocephalic and Atraumatic
Respiratory: Clear to Auscultation; Negative Wheezes or Rhonchi
Cardiac: Regular Rhythm and S1/S2; Negative Murmur
GI: Soft, Nontender, Nondistended and Normal Bowel Sounds
Musculoskeletal: No Clubbing, No Cyanosis and No Edema
Neuro: Awake
Psych: Calm
[2025-01-16 15:00] VITALS: BP 128/76
[2025-01-16] MEDS: MORPHINE SULFATE 30 MG PO (16:05)
[2025-01-16 17:49] VITALS: BP 118/71
[2025-01-16 18:00] VITALS: BP 130/83
--- NOTE | 2025-01-16 19:51 | W.IMMPOSTOP ---
Surgical Immed Post Op Note
-
Primary Surgeon: Dandy Nick MD
Operations Inspector: EVELIO Roberts
Pre-op Diagnosis: Metastatic cancer
Post-op Diagnosis: Same
Procedure Performed: Insertion of Infusaport
Anesthesia Type: MAC
Specimen / Cultures: None
Estimated Blood Loss: 7cc
Complications: None
Operative Findings: Single lumen port inserted via left subclavian vein
Tip of catheter in the SVC on fluoroscopy
Catheter aspirated blood and flushed without resistance
Patient's updated in the waiting room.
[2025-01-16] MEDS: ANCEF 10 IV (20:54)
[2025-01-16] MEDS: LOVENOX 40 MG SC (20:57)
[2025-01-16 23:30] VITALS: BP 107/66
[2025-01-17] MEDS: MORPHINE SULFATE 30 MG PO (04:02)
[2025-01-17] MEDS: COMPAZINE 5 MG PO (04:05)
[2025-01-17 06:09] LABS: Hematocrit 30.2 % (37.0-47.0); Hemoglobin 9.5 g/dL (12.0-16.0); Mean Corp Hgb Conc. 31.5 g/dL (33.0-37.0); Mean Corpuscular Hgb 26.2 pg (27.0-31.0); Mean Corpuscular Volume 83.4 fL (81.0-99.0); Mean Platelet Volume 10.7 fL (7.4-10.4); Platelet Count 272 10^3/uL (130-400); Red Blood Cell Count 3.62 10^6/uL (4.20-5.40); Red Cell Dist. Width 16.7 % (11.5-14.5); White Blood Cell Count 12.7 10^3/uL (4.8-10.8)
[2025-01-17 06:30] LABS: Blood Urea Nitrogen 27 mg/dl (7-17); Calcium 8.6 mg/dl (8.4-10.2); Carbon Dioxide 28 mmol/L (22-30); Chloride 99 mmol/L (98-107); Estimated Creatinine Clearance 66 ml/min; Glucose 144 mg/dl (70-99); Magnesium 2.1 mg/dl (1.6-2.3); Potassium 4.5 mmol/L (3.5-5.1); Sodium 134 mmol/L (135-145); eGFR > 60.00
[2025-01-17 07:30] VITALS: BP 134/80
[2025-01-17] MEDS: VITAMIN D3 (cholecalciferol) 50 MCG PO (09:37)
[2025-01-17] MEDS: PROTONIX 40 MG PO (09:37)
[2025-01-17] MEDS: THERAGRAN 1 TABLET PO (09:37)
[2025-01-17] MEDS: MOBIC 15 MG PO (09:37)
[2025-01-17] MEDS: VITAMIN C 500 MG PO (09:37)
[2025-01-17] MEDS: ZINC 50 MG PO (09:37)
[2025-01-17] MEDS: ZESTRIL 5 MG PO (09:37)
[2025-01-17] MEDS: MS CONTIN (EXTENDED RELEASE) 15 MG PO (09:37)
[2025-01-17] MEDS: SENOKOT 17.2 MG PO (09:37)
[2025-01-17] MEDS: DECADRON 8 MG PO (09:37)
[2025-01-17] MEDS: MIRALAX 17 GRAMS PO (09:38)
--- NOTE | 2025-01-17 14:21 | W.PN.HOSP.TC ---
Today's Communication/Plan
-
d/c if cleared by surgery AND US LE neg
Assessment / Plan
Assessment / Plan
pt is a 69 year old female
Lower extremities weakness/tingling--likely due to metastatic spine disease--no cord compression on T spine, L spine MRI, or brain MRI--apprec onc--PT/OT--agree with steroids
metastatic disease unknown primary--suspect GI--apprec CRS--flex sig neg--s/p port placement
RLE edema -- urgent US--if neg, OK for d/c
Leukocytosis likely from metastatic disease--Patient is afebrile--Continue to monitor
Anemia likely from chronic disease--iron panel, B12, ferritin all without deficiency
Tachycardia likely dehydration---Fluids continued--EKG with sinus tach
Essential hypertension--Lisinopril continued
DVT prophylaxis--Lovenox subcu
CODE STATUS --full code
Anticipated Discharge: Today
Subjective/Interval History
-
Date of Service: January 17, 2025
pt c/o right LE edema
Objective Data
-
Labs:
Laboratory Results
01/17/25
05:46
WBC 12.7 H
Hgb 9.5 L
Hct 30.2 L
Plt Count 272
Sodium 134 L
Potassium 4.5
Chloride 99
Carbon Dioxide 28
BUN 27 H
Creatinine 0.6
Glucose 144 H
Calcium 8.6
Vital Signs:
max temp for 24 hours
01/16/25
17:49
Temp 98.3 F
Vital Signs
Temp Pulse Resp BP Pulse Ox
97.5 F 102 22 134/80 98
01/17/25 07:30 01/17/25 07:30 01/17/25 07:30 01/17/25 07:30 01/17/25 07:30
I&O
01/16/25 01/17/25 01/18/25
06:59 06:59 06:59
Intake Total 240 / 240
Balance 240 / 240
Review of Systems
-
All other systems: Reviewed and negative
Musculoskeletal: Reports Edema (right LE)
Physical Exam
-
General: Well Developed, Well Nourished and No Apparent Distress
HEENT: Normocephalic and Atraumatic
Respiratory: Clear to Auscultation; Negative Wheezes or Rhonchi
Cardiac: Regular Rhythm and S1/S2; Negative Murmur
GI: Soft, Nontender, Nondistended and Normal Bowel Sounds
Musculoskeletal: No Clubbing and No Cyanosis; Negative No Edema (3+ RLE edema)
Neuro: Awake
[2025-01-17 16:00] VITALS: BP 124/75
--- NOTE | 2025-01-17 16:10 | CM ---
CM met with pt and spouse at bedside.
Offered VN. Pt agreeable. Offered choice of agency. No preference. OK to send to [facility]. Did so through [facility].
IMM done.
at bedside to transport home.
--- NOTE | 2025-01-18 16:21 | W.DCSUMMARY ---
Discharge Summary
Discharge Data
Date of Admission: 01/14/25
Date of Discharge: 01/17/25
-
Pending Results: No
Hospital Course
Primary care physician : Zenia Monique
Principal Discharge diagnosis : Lower extremity weakness/tingling due to metastatic disease to the spine, right lower extremity edema
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
Hospital Course : Patient was a 69-year-old female with a history of metastatic spinal cancer unknown primary getting radiation therapy since Sunday prior to admission. She presented from radiation oncology with a tingling feeling across her mid
low back for the past 2 nights as well as being off balance and weak. She also complained of poor oral intake. She denied headache, dizziness, or syncope. She denied incontinence of bowel or bladder. Patient was admitted.
Problem #1: Lower extremity weakness/tingling due to metastatic disease to the spine. Patient was admitted and seen in consultation by oncology, physical therapy, Occupational Therapy. Steroids were started which helped improve the weakness.
Patient underwent brain MRI, T-spine MRI, L-spine MRI. There were no brain mets or cord compression noted. Patient will be discharged home on steroids. Patient truly has an unknown primary cancer that was thought to be GI in nature. Patient did
have a flexible sigmoidoscopy while she was here during this admission which was negative.
Problem #2: Right lower extremity edema. Ultrasound done urgently was negative for deep venous thrombosis.
Problem #3: All other medical issues. These include Metastatic disease to spine unknown primary, anemia from chronic disease, essential hypertension. These medical issues were stable during her hospitalization. Medications were continued as able.
Patient did receive a port placement for chemotherapy this admission.
Patient is stable for discharge home at this time. If there are any questions regarding this dictation or her hospital stay, please not hesitate to call. Our office number is [phone].
Time for discharge 32 minutes.
Important imaging findings :
BRAIN MRI IMPRESSION:
No acute intracranial abnormality noted. No MR evidence for intracranial metastases.
Findings suggesting scattered calvarial osseous metastases.
T SPINE MRI IMPRESSION:
There is extensive osseous metastatic disease throughout the thoracic spine.
There is a mild compression deformity of T7 with 2 mm retropulsion and a moderate compression deformity of T8 with 3 mm retropulsion secondary to osseous metastasis. At these levels there is extension into the posterior elements with slight
extension into the epidural space on the right. There is resultant severe canal stenosis at the T8 level with severe bilateral neuroforaminal narrowing at T8-T9. There is additional mild canal stenosis at T7 with severe right-sided neuroforaminal
narrowing at T7-T8.
There is no definite cord signal abnormality.
L SPINE MRI IMPRESSION:
Extensive infiltrative osseous metastatic disease. No overt MR evidence for extraosseous/intraspinal disease.
Multilevel degenerative changes of the lumbar spine as detailed.
Procedure findings :
Primary Surgeon: Dandy Nick MD
Attendant Arcade: EVELIO Roberts
Pre-op Diagnosis: Metastatic cancer
Post-op Diagnosis: Same
Procedure Performed: Insertion of Infusaport
Anesthesia Type: MAC
Specimen / Cultures: None
Estimated Blood Loss: 7cc
Complications: None
Operative Findings: Single lumen port inserted via left subclavian vein
Tip of catheter in the SVC on fluoroscopy
Catheter aspirated blood and flushed without resistance
Discharge Plan
-
Patient Disposition: Home with Home Care
Discharge Diagnosis/Procedures: Lower extremity weakness and tingling due to metastatic disease to the spine, metastatic disease with unknown primary, right lower extremity edema, leukocytosis from metastatic disease, and anemia likely from chronic
disease, essential hypertension
Condition: Good
Diet: As tolerated and Regular
Activity: As tolerated
Driving Restrictions: Not until seen by your Dr
Bathing Restrictions: None
Other Services: PT
Referrals:
Zenia Monique PA [Family Provider] - in less than 1 week
Prescriptions:
New
dexamethasone 4 mg Tablet
8 mg PO Q12 Qty: 90 0RF
pantoprazole 40 mg Tablet,Delayed Release (Dr/Ec)
40 mg PO DAILY Qty: 30 0RF
acetaminophen 325 mg Tablet
650 mg PO Q4HPRN PRN (Reason: mild pain/BRAN/temp> 100.4F) Qty: 0 0RF
Continued
sennosides [senna] 8.6 mg Tablet
17.2 mg PO DAILY
polyethylene glycol 3350 [Miralax] 17 gram Powder In Packet
17 g PO Q72H
prochlorperazine maleate 5 mg Tablet
5 mg PO TIDPRN PRN (Reason: nausea)
meloxicam 15 mg Tablet
15 mg PO DAILY
therapeutic multivitamin Tablet
1 tab PO DAILY
zinc sulfate 50 mg zinc (220 mg) Tablet
50 mg PO DAILY
ascorbic acid (vitamin C) [Vitamin C] 500 mg Tablet
500 mg PO DAILY
morphine 30 mg Tablet
30 mg PO Q4HPRN PRN (Reason: severe pain)
morphine 15 mg Tablet Extended Release
15 mg PO Q12H
lisinopril 5 mg Tablet
5 mg PO DAILY
vitamin A-vitamin C-vit E-min Tablet
1 tab PO DAILY
cholecalciferol (vitamin D3) [Vitamin D3] 50 mcg (2,000 unit) Tablet
50 mcg PO DAILY
[id number] serr [Osteo Bi-Flex (5-Loxin)] 1,500-400-100 mg-unit-mg Tablet
1 tab PO DAILY
Discharge Orders:
Discharge Patient (As Directed); Ordered 01/17/25
Ordered By: Raisa Duran
Discharge Date and Time
Discharge Date/Time: 01/17/25 17:29
Print Language: PORTUGUESE
== END 2025-01-17 17:29 | disposition home health service (06) | DRG 543 ==
LOC: 4 WEST ACU 07:02
PROVIDERS: Registered Nurse; ADMITTING PHYSICIAN Hospitalist; ATTENDING PHYSICIAN Internal Medicine; CONSULT PHYSICIAN Internal Medicine Hematology & Oncology; CONSULT PHYSICIAN Surgery; EMERGENCY PHYSICIAN Emergency Medicine; FAMILY PHYSICIAN Physician Assistant Medical
PROC: 0DJD8ZZ Inspection of Lower Intestinal Tract, Via Natural or Artificial Opening Endoscopic (ICD-10-PCS; 2025-01-15)
PROC: 02HV33Z Insertion of Infusion Device into Superior Vena Cava, Percutaneous Approach (ICD-10-PCS; 2025-01-16)
PROC: 0JH63WZ Insertion of Totally Implantable Vascular Access Device into Chest Subcutaneous Tissue and Fascia, Percutaneous Approach (ICD-10-PCS; 2025-01-16)
DX: C79.51 Secondary malignant neoplasm of bone (principal); C34.12 Malignant neoplasm of upper lobe, left bronchus or lung; C78.7 Secondary malignant neoplasm of liver and intrahepatic bile duct; E86.0 Dehydration; R60.0 Localized edema; R20.2 Paresthesia of skin; I10 Essential (primary) hypertension; D63.8 Anemia in other chronic diseases classified elsewhere; K57.30 Diverticulosis of large intestine without perforation or abscess without bleeding; Z87.891 Personal history of nicotine dependence
CPT/HCPCS: 70553; 71045; 72157; 72158; 76000; 80048; 80053; 82607; 82728; 82746; 83540; 83690; 83735; 84443; 85025; 85027; 87502; 87811; 93005; 93971; 96374; 96375; 97162; 97167; 97535; 99285; A9575; C1788

== ENCOUNTER 2025-02-16 14:36 | Emergency (ER) | payer BC, MEDICARE, SELFPAY ==
[2025-02-16 14:42] VITALS: BP 117/78
[2025-02-16 14:57] LABS: % Basophils 0.2 % (0-2); % Immature Granulocytes 1.3 % (0-0.5); % Lymphocytes 8.3 % (20.5-51.1); % Monocytes 5.2 % (1.7-9.3); Absolute Immature Granulocytes 0.1 10^3/uL (0-0.05); Absolute Lymphocytes 0.7 10^3/uL (1.2-3.4); Absolute Monocytes 0.5 10^3/uL (0.1-0.6); Absolute Neutrophils 7.4 10^3/uL (1.4-6.5); Hematocrit 31.5 % (37.0-47.0); Hemoglobin 10.4 g/dL (12.0-16.0); Mean Corpuscular Hgb 26.7 pg (27.0-31.0); Mean Corpuscular Volume 80.8 fL (81.0-99.0); Mean Platelet Volume 9.5 fL (7.4-10.4); Nucleated Red Blood Cells % 0 %; Platelet Count 178 10^3/uL (130-400); Red Cell Dist. Width 18.2 % (11.5-14.5); White Blood Cell Count 8.7 10^3/uL (4.8-10.8)
[2025-02-16 15:12] LABS: ALT (SGPT) 34 U/L (0-35); AST (SGOT) 29 U/L (14-36); Albumin 3.1 g/dl (3.5-5.0); Alkaline Phosphatase 482 U/L (38-126); Blood Urea Nitrogen 18 mg/dl (7-17); Calcium 7.4 mg/dl (8.4-10.2); Carbon Dioxide 27 mmol/L (22-30); Chloride 95 mmol/L (98-107); Glucose 104 mg/dl (70-99); Potassium 4.1 mmol/L (3.5-5.1); Sodium 128 mmol/L (135-145); Total Bilirubin 0.8 mg/dl (0.2-1.3); Total Protein 5.5 g/dl (6.3-8.2); eGFR > 60.00
--- NOTE | 2025-02-16 17:43 | ED.GENMED ---
History of Present Illness
General
Chief Complaint: DVT/Possible Blood Clot
Source: patient
Exam Limitations: none
Time Seen by Provider: 02/16/25 16:35
Nursing documentation reviewed up to this point in time: agreed with
History of Present Illness
History of Present Illness:
Patient to ED wtih complaint of swelling to BLE. States swelling has increased over the past few weeks. Sent to ED to r/o DVT. Brought to ED by spouse for eval.
Past History
Past History
ED Past Medical History: Cancer (spinal mets, unknown primary source), GERD and HTN
Review of Systems
Review of Systems
Allergies reviewed?: Yes
All Other Systems: ROS reviewed and negative except as documented in HPI and ROS
Constitutional: Reports no symptoms
EENT: Reports no symptoms
Respiratory: Reports no symptoms
Cardiac: Reports no symptoms
ABD/GI: Reports no symptoms
: Reports no symptoms
Musculoskeletal: Reports edema (+3 edema BLE)
Skin: Reports no symptoms
Neurological: Reports weakness
Psychiatric: Reports no symptoms
Phy Exam
General Physical Exam
General Presentation: well appearing and no apparent distress
General age: appears stated age
General Skin: warm and dry
General Habitus: normal
Cardiovascular Exam
Cardiovascular Exam: regular rate/rhythm
Pulmonary Exam
Pulmonary Exam: lungs clear, no respiratory distress, chest non tender and no crackles
Musculoskeletal Exam
Musculoskeletal Exam: full ROM, edema (+3 BLE) and neuro vasc intact
Skin Exam
Skin Exam: normal color, warm/dry and no rash
Psychiatric Exam
Psychiatric Exam: normal mood/affect
Course
Orders/Labs/Results
Orders:
Orders
02/16/25 14:46
Legs, Bilateral US [US Periph Venous LOWER Ext Robert] Urgent
Comment:
Reason For Exam: swelling
02/16/25 14:49
CBC/With Diff [Complete Blood Count/With Diff] Urgent
Comprehensive Metabolic Panel Urgent
Abnormal Lab Results
02/16/25
14:49
RBC 3.90 L 10^6/uL
(4.20-5.40)
Hgb 10.4 L g/dL
(12.0-16.0)
Hct 31.5 L %
(37.0-47.0)
MCV 80.8 L fL
(81.0-99.0)
MCH 26.7 L pg
(27.0-31.0)
RDW 18.2 H %
(11.5-14.5)
Abs Immat Gran (auto) 0.1 H 10^3/uL
(0-0.05)
Absolute Neuts (auto) 7.4 H 10^3/uL
(1.4-6.5)
Absolute Lymphs (auto) 0.7 L 10^3/uL
(1.2-3.4)
Immature Gran % 1.3 H %
(0-0.5)
Neutrophils % 85.0 H %
(42.2-75.2)
Lymphocytes % 8.3 L %
(20.5-51.1)
Sodium 128 L mmol/L
(135-145)
Chloride 95 L mmol/L
(98-107)
BUN 18 H mg/dl
(7-17)
Creatinine 0.4 L mg/dL
(0.6-1.0)
Glucose 104 H mg/dl
(70-99)
Calcium 7.4 L mg/dl
(8.4-10.2)
Alkaline Phosphatase 482 H U/L
(38-126)
Total Protein 5.5 L g/dl
(6.3-8.2)
Albumin 3.1 L g/dl
(3.5-5.0)
02/16/25 14:49
02/16/25 14:49
Vital Signs
Initial and Last Documented VS:
Initial Vital Signs
Temp Pulse Resp BP Pulse Ox
98.8 F 118 18 117/78 98
02/16/25 14:42 02/16/25 14:42 02/16/25 14:42 02/16/25 14:42 02/16/25 14:42
Last Documented Vital Signs
Temp Pulse Resp BP Pulse Ox
98.8 F 118 18 117/78 98
02/16/25 14:42 02/16/25 14:42 02/16/25 14:42 02/16/25 14:42 02/16/25 14:42
*Radiology
Radiology exam reviewed: radiology read reviewed
*Pulse Oximetry
Patient hypoxic: no
*Critical Care Note
Total Time (30-74mins, 75-104mins- exclusive of procedures): Not Applicable
Update Note
Update Note:
Patient to ED for eval of BLE edema which has increased over the past few weeks. US neg for DVT. Labs reveal NA 128. She admits to large amts of water intake daily in an attempt to lessen constipation for her daily pain medications. Discussed
with her that this increased fluid intake is causing her increased edema and low Na levels. SHe agrees to fluid restriction and repeating labs in 3 days. She will also utilize compression stockings, elevate legs to combat leg swellling. WIll
discharge home and she will follow up with her PCP. Given instructions on s/s to return to ED and she is agreeable to plan. No s/s CHF
ED Attending Note
-
Portions of this chart may have been created with voice recognition software.� Occasional wrong word or��sound alike� substitutions may have occurred due to the inherent limitations of voice recognition software.
Discharge Plan
Departure
Patient Disposition: Home (Routine Discharge)
Date of Disposition: 02/16/25
Time of Disposition: 17:40
Patient with high blood pressure during this ER visit?: No
Condition: Good
Covid-19: Not Applicable
Discharge Problem:
Edema leg, Acute hyponatremia
Instructions: Swelling, Hyponatremia, Fluid restriction
Prescriptions:
No Action
sennosides [senna] 8.6 mg Tablet
17.2 mg PO DAILY
polyethylene glycol 3350 [Miralax] 17 gram Powder In Packet
17 g PO Q72H
prochlorperazine maleate 5 mg Tablet
5 mg PO TIDPRN PRN (Reason: nausea)
meloxicam 15 mg Tablet
15 mg PO DAILY
therapeutic multivitamin Tablet
1 tab PO DAILY
zinc sulfate 50 mg zinc (220 mg) Tablet
50 mg PO DAILY
ascorbic acid (vitamin C) [Vitamin C] 500 mg Tablet
500 mg PO DAILY
morphine 30 mg Tablet
30 mg PO Q4HPRN PRN (Reason: severe pain)
morphine 15 mg Tablet Extended Release
15 mg PO Q12H
lisinopril 5 mg Tablet
5 mg PO DAILY
vitamin A-vitamin C-vit E-min Tablet
1 tab PO DAILY
cholecalciferol (vitamin D3) [Vitamin D3] 50 mcg (2,000 unit) Tablet
50 mcg PO DAILY
[id number] serr [Osteo Bi-Flex (5-Loxin)] 1,500-400-100 mg-unit-mg Tablet
1 tab PO DAILY
dexamethasone 4 mg Tablet
8 mg PO Q12 Qty: 90 0RF
pantoprazole 40 mg Tablet,Delayed Release (Dr/Ec)
40 mg PO DAILY Qty: 30 0RF
acetaminophen 325 mg Tablet
650 mg PO Q4HPRN PRN (Reason: mild pain/BRAN/temp> 100.4F) Qty: 0 0RF
Referrals:
Domonique Nixon DO [Family Provider] - Tomorrow
Activity Restrictions/Additional Instructions:
As we discussed, you will need to restrict your fluid intake over the next few days. Please have you sodium level rechecked in 3 days. Compresssion stockings for your legs and elevation along with the fluid restriction will help to decrease your
leg swelling.
Interventions
Interventions:
*Risk Screen - Suicide Last Done: 02/16/25 14:42
*General Assessment Last Done: 02/16/25 16:27
*Neglect/Abuse Screening Last Done: 02/16/25 14:42
*ED COVID-19 Vaccine History Last Done: 02/16/25 16:27
*Nursing Disposition Last Done: 02/16/25 18:25
ED- Cardiac Assessment Last Done: 02/16/25 16:27
ED- Pulmonary Assessment Last Done: 02/16/25 16:27
ED-Peripheral Vascular Assessment Last Done: 02/16/25 16:27
ED-Skin Assessment Last Done: 02/16/25 16:30
Discharge Date and Time
Discharge Date/Time: 02/16/25 18:26
Print Language: HUNGARIAN
== END 2025-02-16 18:26 | disposition home or self-care (01) ==
LOC: EMR 14:36
PROVIDERS: Student in an Organized Health Care Education/Training Program; EMERGENCY PHYSICIAN Emergency Medicine; FAMILY PHYSICIAN Family Medicine
DX: R60.0 Localized edema (principal); E87.1 Hypo-osmolality and hyponatremia; I10 Essential (primary) hypertension
CPT/HCPCS: 99284; 80053; 85025; 93970

== ENCOUNTER 2025-02-25 13:06 | Inpatient (IN) | payer BC, MEDICARE, SELFPAY ==
[2025-02-25] VITALS (13 sets, daily range): BP systolic 113–137; BP diastolic 71–87; BMI 25.5; BMI 25.4
--- NOTE | 2025-02-25 05:36 | ED.GENMED ---
History of Present Illness
General
Chief Complaint: Weakness
Source: patient, family and ambulance crew
Exam Limitations: none
Time Seen by Provider: 02/25/25 05:20
History of Present Illness
History of Present Illness:
Pleasant 69-year-old female presents to the emergency department with increased weakness. Patient lives at home and states that she has had increased leg swelling edema recently. Patient has a history of metastatic colon cancer. The primary site
is unknown but is metastasized to the bone. Patient complains of bilateral lower extremity swelling and weakness. Upon arrival, EMS states that they found her with a room air saturation of 50%. When paramedics arrived they state that her blood
oxygen saturation level was approximately 50% on room air. Upon arrival to the emergency department, she was satting 78% on room air. She was on 6 L nasal cannula and satting 89%.
is a nurse manager film. He is her primary caregiver and has taken a leave of absence from his job. Tonight he was trying to help her to the toilet and the wheelchair would not fit through the door and they were struggling to get her
relief. Patient felt that they were both going to end up on the floor. Patient is essentially unable to walk on her own. Last week she tried to get up out of a chair and slipped and fell to the floor fracturing her left humerus. She is in a
splint and is due to see orthopedics.
Patient follows with [facility]
states that her doctor there is Dr. Ritter.
Vital signs are stable. Patient not hypoxic
Nursing note reviewed. I agree with nursing documentation up to this point in time.
Home Meds and allergies reviewed.
NUMBER AND COMPLEXITY OF PROBLEMS ADDRESSED AT THE ENCOUNTER
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
� Acute Exacerbation and/or Progression of Chronic Illness: Progression of metastatic carcinoma.
� Differential Diagnosis includes: Pulmonary embolism, electrolyte abnormality, dehydration
AMOUNT AND/OR COMPLEXITY OF DATA TO BE REVIEWED AND ANALYZED
I performed an independent evaluation of the following and my interpretation is:
EKG: EKG shows sinus tachycardia rate of 121 left axis deviation. LVH present when compared with previous EKG dated January 13, 2025, sinus tachycardia was present then but at a slower rate of 106
Pulse Ox: Hypoxic on room air
Ammonia Operator: Sinus tachycardia rate of [address] on the monitor
CT:
X-rays:
Ultrasound:
Laboratory Studies: Troponin 0.018
Other:
Review of other/old records:
Clinical information was obtained by an independent historian: present at the bedside, excellent historian
Prescriptions/Medications Considered but not given:
Further testing considered but not performed:
RISK OF COMPLICATIONS AND/OR MORBIDITY OR MORTALITY OF PATIENT MANAGEMENT
Social determinants of health affecting care: Good Social Support, good follow-up
Discussion with other providers:
Escalation of care including admission/observation vs risk of discharge considered: After being observed in the emergency department, patient will be admitted for hypoxia
CRITICAL CARE NOTE:
Total Time (exclusive of procedures):
Update:
Past History
Past History
ED Past Medical History: Cancer (spinal mets, unknown primary source), GERD and HTN
Social History
Tobacco: Former smoker
Alcohol: Occasional
Personal:
Living: with family
Review of Systems
Review of Systems
Allergies reviewed?: Yes
Other source history: family and ambulance crew
All Other Systems: ROS reviewed and negative except as documented in HPI and ROS
Constitutional: Reports fatigue
EENT: Reports no symptoms
Respiratory: Reports trouble breathing
Cardiac: Reports no symptoms
ABD/GI: Reports no symptoms
: Reports no symptoms
Musculoskeletal: Reports no symptoms
Skin: Reports no symptoms
Neurological: Reports no symptoms
Endocrine: Reports no symptoms
Hematologic/Lymphatic: Reports no symptoms
Psychiatric: Reports no symptoms
Phy Exam
General Physical Exam
General Presentation: moderate distress
General age: appears stated age
General Skin: warm
General Habitus: normal
General Mental: alert
General Hydration: appears well hydrated
ENT Exam
ENT Exam: EOMI, pharynx normal, neck supple and normocephalic
Eye Exam
Eye Exam: PERRL, cornea clear and conjunctiva normal
Cardiovascular Exam
Cardiovascular Exam: regular rate/rhythm, no edema, no murmur and normal peripheral pulses
Pulmonary Exam
Pulmonary Exam: accessory muscle use and generalized wheezing
Oxygen Status: oxygen 6 liters via NC
Respirations: mild increase in effort
Breath Sounds: Wheeze: generalized
Gastrointestinal Exam
Gastrointestinal Exam: normal bowel sounds, non tender, soft, no organomegaly, no pulsatile mass and non distended
Neurological Exam
Neurological Exam: alert, oriented x3, no motor deficits and speech normal
Musculoskeletal Exam
Musculoskeletal Exam: full ROM and no edema
Skin Exam
Skin Exam: normal color, warm/dry, no rash and no petechia
Psychiatric Exam
Psychiatric Exam: normal mood/affect
Course
Orders/Labs/Results
Orders:
Orders
02/25/25 05:20
Urinalysis Reflex To Culture Urgent
02/25/25 05:21
CT Chest PE Study Urgent
Comment:
Reason For Exam: sudden dyspnea, hx of met ca
02/25/25 05:29
Complete Blood Count/With Diff Urgent
Comprehensive Metabolic Panel Urgent
Lactic Acid Urgent
Lipase Urgent
PTT Urgent
Prothrombin Time Urgent
Troponin I Urgent
02/25/25 05:33
ECG [Electrocardiogram (*1)] Urgent
Reason for Study: Shortness of Breath
EKG- Treatment ONCE
Abnormal Lab Results
02/25/25
05:29
WBC 11.5 H 10^3/uL
(4.8-10.8)
RBC 3.84 L 10^6/uL
(4.20-5.40)
Hgb 10.4 L g/dL
(12.0-16.0)
Hct 31.2 L %
(37.0-47.0)
RDW 19.6 H %
(11.5-14.5)
Abs Immat Gran (auto) 0.3 H 10^3/uL
(0-0.05)
Absolute Neuts (auto) 8.8 H 10^3/uL
(1.4-6.5)
Absolute Monos (auto) 1.0 H 10^3/uL
(0.1-0.6)
Immature Gran % 2.8 H %
(0-0.5)
Neutrophils % 76.9 H %
(42.2-75.2)
Lymphocytes % 11.4 L %
(20.5-51.1)
02/25/25 05:29
Vital Signs
Initial and Last Documented VS:
Initial Vital Signs
Temp Pulse Resp BP Pulse Ox
98.3 F 120 19 137/76 89
02/25/25 05:17 02/25/25 05:17 02/25/25 05:17 02/25/25 05:17 02/25/25 05:17
Last Documented Vital Signs
Temp Pulse Resp BP Pulse Ox
98.3 F 120 21 117/73 93
02/25/25 05:17 02/25/25 06:00 02/25/25 06:00 02/25/25 06:00 02/25/25 06:00
*EKG
Interpreted by ED Provider?: Yes
Interpretation: abnormal
Heart Rate: 121
Rate: tachycardiac
*Critical Care Note
Total Time (30-74mins, 75-104mins- exclusive of procedures): Not Applicable
ED Attending Note
-
Portions of this chart may have been created with voice recognition software.� Occasional wrong word or��sound alike� substitutions may have occurred due to the inherent limitations of voice recognition software.
Discharge Plan
Departure
Prescriptions:
No Action
sennosides [senna] 8.6 mg Tablet
17.2 mg PO DAILY
polyethylene glycol 3350 [Miralax] 17 gram Powder In Packet
17 g PO Q72H
prochlorperazine maleate 5 mg Tablet
5 mg PO TIDPRN PRN (Reason: nausea)
meloxicam 15 mg Tablet
15 mg PO DAILY
therapeutic multivitamin Tablet
1 tab PO DAILY
zinc sulfate 50 mg zinc (220 mg) Tablet
50 mg PO DAILY
ascorbic acid (vitamin C) [Vitamin C] 500 mg Tablet
500 mg PO DAILY
morphine 30 mg Tablet
30 mg PO Q4HPRN PRN (Reason: severe pain)
morphine 15 mg Tablet Extended Release
15 mg PO Q12H
lisinopril 5 mg Tablet
5 mg PO DAILY
vitamin A-vitamin C-vit E-min Tablet
1 tab PO DAILY
cholecalciferol (vitamin D3) [Vitamin D3] 50 mcg (2,000 unit) Tablet
50 mcg PO DAILY
[id number] serr [Osteo Bi-Flex (5-Loxin)] 1,500-400-100 mg-unit-mg Tablet
1 tab PO DAILY
dexamethasone 4 mg Tablet
8 mg PO Q12 Qty: 90 0RF
pantoprazole 40 mg Tablet,Delayed Release (Dr/Ec)
40 mg PO DAILY Qty: 30 0RF
acetaminophen 325 mg Tablet
650 mg PO Q4HPRN PRN (Reason: mild pain/BRAN/temp> 100.4F) Qty: 0 0RF
Interventions
Interventions:
*Risk Screen - Suicide Last Done: 02/25/25 05:17
*General Assessment Last Done: 02/25/25 05:17
*Neglect/Abuse Screening Last Done: 02/25/25 05:17
*ED- Fall Risk Assessment Last Done: 02/25/25 05:17
*ED COVID-19 Vaccine History Last Done: 02/25/25 05:17
ED- Cardiac Assessment Last Done: 02/25/25 05:25
ED- Neurological Assessment Last Done: 02/25/25 05:25
ED- Pulmonary Assessment Last Done: 02/25/25 05:25
Discharge Date and Time
Print Language: TURKISH
[2025-02-25 05:56] LABS: % Basophils 0.5 % (0-2); % Immature Granulocytes 2.8 % (0-0.5); % Lymphocytes 11.4 % (20.5-51.1); % Monocytes 8.4 % (1.7-9.3); % Neutrophils 76.9 % (42.2-75.2); Absolute Basophils 0.1 10^3/uL (0-0.2); Absolute Immature Granulocytes 0.3 10^3/uL (0-0.05); Absolute Lymphocytes 1.3 10^3/uL (1.2-3.4); Absolute Neutrophils 8.8 10^3/uL (1.4-6.5); Hematocrit 31.2 % (37.0-47.0); Hemoglobin 10.4 g/dL (12.0-16.0); Mean Corp Hgb Conc. 33.3 g/dL (33.0-37.0); Mean Corpuscular Hgb 27.1 pg (27.0-31.0); Mean Corpuscular Volume 81.3 fL (81.0-99.0); Mean Platelet Volume 9.2 fL (7.4-10.4); Nucleated Red Blood Cells % 0 %; Platelet Count 362 10^3/uL (130-400); Red Blood Cell Count 3.84 10^6/uL (4.20-5.40); Red Cell Dist. Width 19.6 % (11.5-14.5); White Blood Cell Count 11.5 10^3/uL (4.8-10.8)
[2025-02-25 06:00] LABS: INR 0.99; PT 13.4 Sec (11.4-14.6)
[2025-02-25 06:01] LABS: APTT 29.8 Sec (23.4-35.0)
[2025-02-25 06:14] LABS: Troponin I 0.018 ng/ml
[2025-02-25 06:19] LABS: Lactic Acid 1.3 mmol/L (0.7-2.0)
[2025-02-25 06:20] LABS: ALT (SGPT) 29 U/L (0-35); AST (SGOT) 42 U/L (14-36); Albumin 2.7 g/dl (3.5-5.0); Alkaline Phosphatase 365 U/L (38-126); Blood Urea Nitrogen 21 mg/dl (7-17); Calcium 7.4 mg/dl (8.4-10.2); Carbon Dioxide 28 mmol/L (22-30); Chloride 100 mmol/L (98-107); Estimated Creatinine Clearance 66 ml/min; Glucose 129 mg/dl (70-99); Lipase 18 U/L (23-300); Potassium 4.7 mmol/L (3.5-5.1); Sodium 133 mmol/L (135-145); Total Bilirubin 0.6 mg/dl (0.2-1.3); eGFR > 60.00
[2025-02-25] MEDS: DUONEB 3 ML INH (06:57)
[2025-02-25 08:29] LABS: Urine Albumin 1+ (Neg - Trace); Urine Bilirubin Negative (Negative); Urine Character Cloudy (Clear); Urine Color Yellow; Urine Glucose Negative (Negative); Urine Ketone Negative (Negative); Urine Leukocyte Negative (Negative); Urine Nitrite Negative (Negative); Urine Occult Blood Negative (Negative); Urine Urobilinogen Negative (Neg - 1+)
[2025-02-25 08:38] LABS: Urine Bacteria Many (Negative); Urine Red Blood Cell 0-2 /HPF (0-2)
[2025-02-25] MEDS: MORPHINE SULFATE 4 MG IV (08:42)
[2025-02-25] MEDS: LASIX 20 MG IV (08:43)
--- NOTE | 2025-02-25 08:49 | HPS.HSE ---
Family Physician
-
Family Physician: NOT KNOW UNKNOWN - PT DOES
Chief Complaint
-
Weakness, hypoxia
History of Present Illness
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 Finn Desai outpatient), metastatic cancer of unknown origin, and hypertension who
presented with increased generalized weakness (been worsening over weeks to months), lower extremity swelling and hypoxia. Upon arrival, EMS stated that they found patient with a oxygen room air saturation of 50%. She was placed on 6 L nasal cannula
in EMS/in the ER and saturated 89%. Patient was also hospitalized in January 2025 with similar symptoms, still has tingling in his lower extremities, swelling in legs getting worse, at that time steroids on discharge helped with his weakness but
recently stopped by oncology given swelling and medication interactions as per her oncologist. Patient denied any numbness in her groin area, any saddle anesthesia, or any incontinence. She recently started chemotherapy with [facility].
Patient had a left humerus fracture from a fall 5 days ago for which she saw outpatient orthopedics and told to keep her arm in a splint until outpatient follow-up.
Medical History
Past Medical History
Past Medical History: Reports Other (As per HPI above)
Past Surgical History: [facility] (Left Hip Replacement for Left Hip Avascular Necrosis)
Social History
Tobacco: Former Smoker
Alcohol: Occasional
Drug: None
Family History
Family History: Not pertinent
Allergies / Home Medications
Allergies reflects when Allergies were last updated in [facility].
Home Medications with original date entered in [facility]
Allergy/Medication List:
Allergies
Allergy/AdvReac Type Severity Reaction Status Date / Time
No Known Allergies Allergy Verified 02/25/25 05:17
Home Medications
ascorbic acid (vitamin C) 500 mg tablet (Vitamin C) 500 mg PO DAILY Supplement 01/13/25
glucosamine [id number]-[id number] elke 1,500 mg-400 unit-100 mg tablet (Osteo Bi-Flex (5-Loxin)) 1 tab PO DAILY Supplement 01/13/25
lisinopril 5 mg tablet 5 mg PO DAILY Blood Pressure 01/13/25
morphine 15 mg tablet,extended release 15 mg PO Q12H Pain 01/13/25
morphine 30 mg immediate release tablet 30 mg PO Q4HPRN PRN severe pain 01/13/25
polyethylene glycol 3350 17 gram oral powder packet (Miralax) 17 g PO DAILYPRN PRN constipation 01/13/25
prochlorperazine maleate 5 mg tablet 5 mg PO TIDPRN PRN nausea 01/13/25
therapeutic multivitamin 1 tab PO DAILY Supplement 01/13/25
vitamin A-vitamin C-vit E-min tablet 1 tab PO DAILY Supplement 01/13/25
zinc sulfate 50 mg zinc (220 mg) tablet 50 mg PO DAILY Supplement 01/13/25
pantoprazole 40 mg tablet,delayed release 40 mg PO DAILY #30 tabs 01/17/25
acetaminophen 500 mg tablet (Tylenol Extra Strength) 500 mg PO Q6HPRN PRN mild pain 02/25/25
berberine chloride 500 mg capsule 375 mg PO DAILY 02/25/25
brigatinib 90 mg (7)-180 mg (23) tablets in a dose pack 0 ea PO PER PKG DIR 02/25/25
calcium carbonate 1,000 mg PO BID 02/25/25
cyanocobalamin (vitamin B-12) 1,000 mcg tablet 1,000 mcg PO DAILY 02/25/25
denosumab 60 mg/mL subcutaneous syringe (Prolia) 60 mg SC [id number] 02/25/25
iodine (kelp) 1 tab PO DAILY 02/25/25
loperamide 2 mg tablet 2 mg PO BIDPRN PRN diarrhea 02/25/25
ondansetron 4 mg disintegrating tablet 4 mg PO Q6HPRN PRN nausea 02/25/25
Review of Systems
-
A 12 point ROS was completed and negative except as noted: Yes
Physical Exam
Vital Signs
Vital Signs
Temp Pulse Resp BP Pulse Ox
98.3 F 114 16 116/73 98
02/25/25 05:17 02/25/25 08:43 02/25/25 07:00 02/25/25 08:43 02/25/25 07:00
Physical Exam
General: No Apparent Distress
HEENT: NormoCephalic and Moist mucous membranes
Respiratory: Decreased Breath Sounds
Cardiac: S1/S2 and Tachycardia
GI: Soft, Non Tender and Normal Bowel Sounds
Musculoskeletal: No Cyanosis, Edema, Left Lower Extremity and Edema, Right Lower Extremity
Skin: Warm and Dry
Neuro: Awake, Alert, AO x 3 and Other (Bilateral lower extremity strength 2/5. Sensation grossly intact in the bilateral lower extremities.)
Psych: Calm and Intact Judgment/Insight
Laboratory Results
-
02/25/25 05:29
02/25/25 05:29
Laboratory Results
PT 13.4 Sec (11.4-14.6) 02/25/25 05:
INR 0.99 02/25/25 05:
APTT 29.8 Sec (23.4-35.0) 02/25/25 05:29
Lactic Acid 1.3 mmol/L (0.7-2.0) 02/25/25 05:
Total Bilirubin 0.6 mg/dl (0.2-1.3) 02/25/25 05:29
AST 42 U/L (14-36) H 02/25/25 05:29
ALT 29 U/L (0-35) 02/25/25 05:
Alkaline Phosphatase 365 U/L (38-126) H 02/25/25 05:29
Troponin I 0.018 ng/ml 02/25/25 05:29
Lipase 18 U/L (23-300) L 02/25/25 05:29
Impression/Plan
-
Assessment/Plan
Acute Hypoxic Respiratory Failure
Small Bilateral Pleural Effusions
Moderate CHF on CT Chest
Left upper lobe mass with spiculated margins measuring up to 2.8 cm in diameter, pulmonary malignancy versus less likely metastasis on CT Chest
-EMS found patient to be hypoxic with oxygen saturation of 50% on room air -- placed on 6 L in the ER with saturation 89%
-No PE on CT Chest, and recent 02/16/25 lower extremity US showed no DVT
-ProBNP indeterminated at 615
-Check echo, troponins, EKG
-Concern for hypoxia from left upper lobe mass
-Continue oxygen supplementation to maintain oxygen saturations >90%
-Consult oncology given patient's presentation and history as below
Increased bilateral lower extremity weakness
Increased leg swelling/edema recently
-Swelling can be from low albumin
-No DVT on recent bilateral lower extremity ultrasound
Recent January 2025 hospitalization for lower extremities weakness/tingling--likely due to metastatic spine disease
-It was noted that there was no cord compression on T spine, L spine MRI, or brain MRI--and steroids were started but steroids were stopped by oncology outpatient prior to this admission
Leukocytosis with immature granulocytes
-Suspected from malignant process
Anemia of Chronic Disease
-It was noted that recent iron panel, B12, ferritin all without deficiency
Recent Fall with left humerus fracture
Pathologic fracture left coracoid process
Nondisplaced fracture lateral left ninth rib
Thoracic spine compression deformities of indeterminate acuity
-On splint, has been seeing [facility] physician Dr. Finn Desai
High ALP
-Likely related to bone metastases
History of metastatic cancer
Diffuse osseous metastatic disease
-Patient sees oncologist Dr. Ritter outpatient
Essential Hypertension
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
Hypertension
DVT Prophylaxis: Lovenox
Code Status: Full Code
[2025-02-25 08:56] LABS: NT-proBNP 615 pg/ml
[2025-02-25] MEDS: MS CONTIN (EXTENDED RELEASE) 15 MG PO ×2 (09:00→20:59)
--- NOTE | 2025-02-25 15:20 | CM ---
spoke to patient, and dgtr numerous times. Patient and live in 2 level home with one step to enter. She has rolling walker and 'up walker'. Not clear if she has a commode but has a wheelchair. She had a fall, fractured her left
humerus. She has a sling on.
With the sling and pain it has been harder to assist her with transfers at home.
Patient and could not manage to get her into bathroom this morning due to her weakness which is why they called 911 to come to hospital.
Patient was current with [facility].
PCP Zenia Monique
Pharmacy: [facility]
Discharge needs are not clear at this time. CM to follow to assist with safe discharge plan. IF patient goes home she wants [facility] with [facility].
Patient may need a different walker to use with just one hand. PT to assess.
--- NOTE | 2025-02-25 15:33 | CON.PUL ---
Consultation
Consultation Request
Date/Time Consultation Requested: 02/25/25
Date/Time Consultation Performed: 02/25/25
Performing Provider: Eder
Reason for Consultation: SOB
Medical History
-
History of Present Illness:
Patient is a 69-year-old female with history of left hip replacement for left hip avascular necrosis, recent left humerus fracture (is in splint and [facility] Dr. Finn Desai outpatient), metastatic cancer of unknown origin, and
hypertension who presented with increased generalized weakness for last few weeks to months, lower extremity swelling and hypoxia. Upon arrival, EMS stated that they found patient with a oxygen room air saturation of 50%. She was placed on 6 L nasal
cannula in EMS/in the ER and saturated 89%.
She is well known to [facility]. Had been undergoing w/u for her diffuse met disease felt to be due to primary lung NSCLC based on ALK testing, she has a known JOHN nodule, previously 1.5cm now 1.6 with margins of 2.8cm with corresponding
lymphadenopathy. It was never planned for outpatient biopsy of her lung nodule as this was presumed based on genetic testing. She has not previously seen outpatient pulmonary in the past. She denies any prior history of lung disease.
CT chest obtained indicating pulmonary edema with effusions. She was given 1 dose of Lasix with output of 1 L and improvement of her lower extremity edema.
Patient had a left humerus fracture from a fall 5 days ago for which she saw outpatient orthopedics and told to keep her arm in a splint until outpatient follow-up.
Past Medical History
Past Medical History: Other (see list below)
Social History
Tobacco: Non-smoker
Alcohol: None
Drug: None
Family History
Family History: Reviewed & Not Pertinent
Allergies / Home Medications
Allergies
Allergy/AdvReac Type Severity Reaction Status Date / Time
No Known Allergies Allergy Verified 02/25/25 05:17
Home Medications
�Medication �Instructions �Recorded �Confirmed �Last Taken �Type
ascorbic acid (vitamin C) 500 mg 500 mg PO DAILY Supplement 01/13/25 02/25/25 02/24/25 History
tablet (Vitamin C)
glucosamine [id number] 1 tab PO DAILY Supplement 01/13/25 02/25/25 02/24/25 History
elke 1,500 mg-400 unit-100 mg
tablet (Osteo Bi-Flex (5-Loxin))
lisinopril 5 mg tablet 5 mg PO DAILY Blood Pressure 01/13/25 02/25/25 02/24/25 History
morphine 15 mg tablet,extended 15 mg PO Q12H Pain 01/13/25 02/25/25 02/24/25 History
release
morphine 30 mg immediate release 30 mg PO Q4HPRN PRN severe pain 01/13/25 02/25/25 02/25/25 00:15 History
tablet
polyethylene glycol 3350 17 gram 17 g PO DAILYPRN PRN constipation 01/13/25 02/25/25 Unknown History
oral powder packet (Miralax)
prochlorperazine maleate 5 mg 5 mg PO TIDPRN PRN nausea 01/13/25 02/25/25 Unknown History
tablet
therapeutic multivitamin 1 tab PO DAILY Supplement 01/13/25 02/25/25 02/24/25 History
vitamin A-vitamin C-vit E-min 1 tab PO DAILY Supplement 01/13/25 02/25/25 02/24/25 History
tablet
zinc sulfate 50 mg zinc (220 mg) 50 mg PO DAILY Supplement 01/13/25 02/25/25 02/24/25 History
tablet
pantoprazole 40 mg tablet,delayed 40 mg PO DAILY #30 tabs 01/17/25 02/25/25 02/24/25 Rx
release
acetaminophen 500 mg tablet 500 mg PO Q6HPRN PRN mild pain 02/25/25 02/25/25 Unknown History
(Tylenol Extra Strength)
berberine chloride 500 mg capsule 375 mg PO DAILY 02/25/25 02/25/25 02/24/25 History
brigatinib 90 mg (7)-180 mg (23) 0 ea PO PER PKG DIR 02/25/25 02/25/25 02/23/25 History
tablets in a dose pack
calcium carbonate 1,000 mg PO BID 02/25/25 02/25/25 02/24/25 History
cyanocobalamin (vitamin B-12) 1,000 mcg PO DAILY 02/25/25 02/25/25 02/24/25 History
1,000 mcg tablet
denosumab 60 mg/mL subcutaneous 60 mg SC [id number] 02/25/25 02/25/25 Unknown History
syringe (Prolia)
iodine (kelp) 1 tab PO DAILY 02/25/25 02/25/25 02/24/25 History
loperamide 2 mg tablet 2 mg PO BIDPRN PRN diarrhea 02/25/25 02/25/25 02/24/25 History
ondansetron 4 mg disintegrating 4 mg PO Q6HPRN PRN nausea 02/25/25 02/25/25 02/23/25 History
tablet
Review of Systems
-
History Source: Patient
All other systems: Negative unless noted
Vitals / Labs / Diagnostic Testing
Vital Signs
Temp Pulse Resp BP Pulse Ox
98.3 F 104 13 113/77 94
02/25/25 05:17 02/25/25 14:00 02/25/25 14:00 02/25/25 14:00 02/25/25 14:00
Lab Data
02/25/25 05:29
02/25/25 05:29
Laboratory Results
02/25/25
05:29
PT 13.4
INR 0.99
APTT 29.8
Diagnostic Testing:
Physical Exam
-
HEENT: Normocephalic, Anicteric and Moist Mucous Membranes
Cardiovascular: S1/S2, Regular Rhythm and Peripheral Edema (3+)
Respiratory: Rales and Non-Labored Respirations
GI: Soft, Non Distended and Non Tender
Neurology: Awake, Alert, Oriented, No Motor Deficits and Other (LUE in Sling/decreased ROM)
Skin: Warm and Dry
General: Comfortable and Other (NAD)
Assessment
-
Patient is a 69-year-old female with history of left hip replacement for left hip avascular necrosis, recent left humerus fracture (is in splint and [facility] Dr. Finn Desai outpatient), metastatic cancer of unknown origin, and
hypertension who presented with increased generalized weakness for last few weeks to months, lower extremity swelling and hypoxia. Upon arrival, EMS stated that they found patient with a oxygen room air saturation of 50%. She was placed on 6 L nasal
cannula in EMS/in the ER and saturated 89%. CT showing CHF signs, we are consulted for evaluation.
Acute hypoxic respiratory failure
Small Bilateral Pleural Effusions/Moderate CHF on CT Chest
Left upper lobe mass with spiculated margins measuring up to 2.8 cm, known primary lung NSCLC
Generalized weakness
LE Swelling
Subacute left humerus fracture (is in splint and [facility] Dr. Finn Desai outpatient)
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
Metastatic disease of unknown origin, known to [facility]
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
Status post flex sigmoidoscopy with no lesion noted in the rectosigmoid junction
Known pulmonary nodule, JOHN measuring 1.5cm on PET
ALK mutation typical for non-small cell lung cancer, completed palliative radiation therapy 01/30/2025 to areas of painful bone disease
HTN
Left Hip Avascular Necrosis s/p Left Hip Replacement
Left bundle branch block (LBBB)
Chest pain syndrome
Family history of early CAD
Plan
Hypoxemia noted on arrival, O2 jared 50s reportedly, now on NC
She is not known to be on home O2 in the past
Home O2 evaluation eventually
Prior history of lung disease is NOT noted --she has nodule noted on CT
She is well known to [facility]. Had been undergoing w/u for her diffuse met disease felt to be due to primary lung NSCLC based on ALK testing, she has a known JOHN nodule, previously 1.5cm now 1.6 with margins of 2.8cm with corresponding
lymphadenopathy.
It was never planned for outpatient biopsy of her lung nodule as this was presumed based on genetic testing. She has not previously seen outpatient pulmonary in the past. She denies any prior history of lung disease.
Onc consult placed, we will follow up recs
CT chest obtained indicating pulmonary edema with effusions. She was given 1 dose of Lasix with output of 1 L and improvement of her lower extremity edema.
The size of her effusions are likely too small for thoracentesis but if enlarging, can plan for diag tap
Suspect patient has acute CHF exacerbation given CT, LE edema, response to lasix
Would be reasonable to continue small daily doses and evaluate weights/CXR response/O2 weaning
PET CT reviewed as OP as well, she has associated LNS in med/hilum
Will repeat CXR in next 24-48 hours to assess status
Prior ECHO results are reviewed indicating preserved function
Repeat study pending but this is limited due to her LUE limited ROM
Await results if able to obtain limited views
Patient had a left humerus fracture from a fall 5 days ago for which she saw outpatient orthopedics and told to keep her arm in a splint until outpatient follow-up.
Patient is requesting second opinion from [facility], consult to be placed by care team
Generalized weakness a prevailing issue
Will need PT/OT evals, consideration for PM&R as well
Will need outpatient pulmonary evaluation in our office for PFTs and 6MWT
Reviewed with patient
Extensive discussion wtih patient's and daughter at bedside ( is a LINSEED CAKE TRIMMER)
We will follow
Diagnostic Data
Chest X-Ray: 01/16/25- Left-sided port with tip within the SVC. No evidence for significant pneumothorax.
CT Scan: CHEST 02/25/25- 1. No pulmonary embolism identified.
2. Moderate CHF with small bilateral pleural effusions.
3. Left upper lobe mass with spiculated margins measuring up to 2.8 cm in diameter, pulmonary malignancy versus less likely metastasis.
4. Diffuse osseous metastatic disease. Fracture proximal left humerus, presumably pathologic. Pathologic fracture left coracoid process. Nondisplaced fracture lateral left ninth rib. Thoracic spine compression deformities of indeterminate acuity.
PET 01/01/25- hypermetabolic 1.5 x 1.4 cm nodule within the anterior left upper lobe; multiple hypermetabolic lymph nodes within the superior mediastinum/left hilum consistent with malignant nodes. Additionally there is a right supraclavicular
hypermetabolic lymph node, likely an additional malignant lymph node.
Mild hypermetabolic activity in the region of the rectosigmoid junction which demonstrates a max SUV of 4.9; hypermetabolic lesion within the anterior right hepatic lobe which likely represents a hepatic metastasis; extensive osseous hypermetabolic
metastasis throughout the axial and proximal appendicular skeleton. There are additional nonhypermetabolic sclerotic foci which likely represent additional sclerotic osseous metastasis.
Echo: 08/10/21- Normal left ventricular systolic function. Left ventricular ejection fraction is 50-55%. No significant valvular disease. No significant change since the prior study of 2018.
PFT's:
Reports and relevant images were personally reviewed.
Total time spent on this consultation __76__ minutes which includes review of history, physical exam, medications, laboratory data, personal review of imaging, extensive review of outpatient records, discussion with care team and respiratory therapy.
[2025-02-25] MEDS: OSCAL CAL 500 1000 MG PO ×2 (16:14→21:06)
[2025-02-25] MEDS: ZINC 50 MG PO (16:14)
[2025-02-25] MEDS: VITAMIN B-12 1000 MCG PO (16:15)
[2025-02-25] MEDS: PROTONIX 40 MG PO (16:15)
[2025-02-25] MEDS: THERAGRAN 1 TABLET PO (16:15)
[2025-02-25] MEDS: ZESTRIL 5 MG PO (16:15)
[2025-02-25] MEDS: VITAMIN C 500 MG PO (16:15)
[2025-02-25] MEDS: MORPHINE SULFATE 30 MG PO (16:26)
--- NOTE | 2025-02-25 16:57 | W.PN.UPDATE ---
Update Note
Progress Note Update
Patient and family requested 2nd opinion from a [facility] physician. No need for orthopedics inpatient consult. I spoke with [facility], Dr. Jordan, and he said:
The doctor on general call for [facility] does not do that type of surgery, specifically metastatic tumor surgery and they�re going to have to see Doctor Chris Kunz as an outpatient. He is the specialist at [facility] who does this type of surgery but
does not do such surgeries at [facility]. Additionally, there is nothing orthopedics will do from an operative standpoint right now since she hypoxic. Patient should keep splint on and follow-up with Dr. Chris Kunz outpatient.
[2025-02-25] MEDS: LOVENOX 40 MG SC (17:36)
--- NOTE | 2025-02-25 18:44 | PTCARENOTE ---
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 Remained on 6 L NC. No complaints at this time. Pt oriented to floor, room and staff. at bedside to assist with questions. Vital signs stable.
--- NOTE | 2025-02-25 19:33 | PTCARENOTE ---
Pt reports to be on a medication for chemotherapy that causes her urine and bodily fluids to be toxic. Game Programmer notified. Pt remained in her double room with orders to flush twice with the lid closed if she uses the toilet. She currently is on
purwick with urine contained. Yellow chemo precaution paper hung outside the door, gowns placed in room. Staff, air cargo ground crew supervisor and RNs notified. Plan of care ongoing.
[2025-02-26] MEDS: MORPHINE SULFATE 30 MG PO ×3 (02:00→21:47)
[2025-02-26 03:58] VITALS: BP 127/83
[2025-02-26 04:03] LABS: Troponin I 0.145 ng/ml
--- NOTE | 2025-02-26 04:05 | PTCARENOTE ---
Patient had critical value troponin of 0.145. SALES PROJECT COORDINATOR Roman Bunn notified. Will continue to monitor.
--- NOTE | 2025-02-26 05:46 | DOWNTIME ---
There was a Backup Circle Client Flat Surfacer Jewel Downtime on 02/26/2025 from 0200 to 02/27/2024 at 0318 . Downtime documentation of patient's care, including medication administrations, has been reconciled in the electronic record per guidelines. Refer to the
patient's paper chart under the miscellaneous tab to see printed paper medication records and downtime forms.
[2025-02-26 06:00] VITALS: BMI 24.5
[2025-02-26 07:55] VITALS: BP 125/78
[2025-02-26 08:21] LABS: % Basophils 0.4 % (0-2); % Immature Granulocytes 2.2 % (0-0.5); % Lymphocytes 13.9 % (20.5-51.1); % Monocytes 7.1 % (1.7-9.3); % Neutrophils 76.4 % (42.2-75.2); Absolute Basophils 0.1 10^3/uL (0-0.2); Absolute Immature Granulocytes 0.3 10^3/uL (0-0.05); Absolute Lymphocytes 1.9 10^3/uL (1.2-3.4); Absolute Neutrophils 10.5 10^3/uL (1.4-6.5); Hematocrit 31.9 % (37.0-47.0); Hemoglobin 10.3 g/dL (12.0-16.0); Mean Corp Hgb Conc. 32.3 g/dL (33.0-37.0); Mean Corpuscular Hgb 26.4 pg (27.0-31.0); Mean Corpuscular Volume 81.8 fL (81.0-99.0); Mean Platelet Volume 9.1 fL (7.4-10.4); Nucleated Red Blood Cells % 0 %; Platelet Count 391 10^3/uL (130-400); Red Cell Dist. Width 19.5 % (11.5-14.5); White Blood Cell Count 13.7 10^3/uL (4.8-10.8)
[2025-02-26] MEDS: MS CONTIN (EXTENDED RELEASE) 15 MG PO ×2 (08:28→20:14)
--- NOTE | 2025-02-26 08:37 | VNURNOTE ---
Chart reviewed. Patient is current with [facility] nursing and PT. Will continue to follow hospital course and DC plans.
--- NOTE | 2025-02-26 08:46 | CON.ONC ---
Consultation
-
Date Consultation Requested: 02/25/25
Date Consultation Performed: 02/26/25
Performing Provider: Dr. Mckeon/Dr. Dai
Impression
Impression
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
weakness
back pain, DDD
Plan
Plan
Continue outpatient brigatinib plan-- 90mg every evening through 03/01 (7 days total). Then on 03/02 increase dose to 180mg. Discussed with patient and , he is to bring home medication to hospital daily (informed him to leave supply for the
weekend).
Dec PET scan and January MRIs both with significant osseus metastatic disease of spine with slight extension into epidural space and vetebral body compression deformities; no evidence of spinal cord compression or intraspinal disease. Suspect back
pain is related to osseous metastasis/chronic compression deformities. In terms of weakness, this is less likely acute spinal cord compression but nonetheless will repeat thoracic/lumbar MRI to evaluate for disease progression or other acute
pathology.
Patient History
History of Present Illness
69yo F with stage 4 ALK-positive cancer with extensive bone metastases (most likely of NSCLC origin) presented to ED for worsening weakness, bilateral leg swelling, and was admitted for hypoxic respiratory insufficiency. In terms of her cancer
history, she was diagnosed with metastatic disease during workup for back pain. Bone biopsy showed expression of ALK mutation typical for NSCLC, consistent with pulmonary nodule on imaging. PET scan 12/2024 showed additional hyperactive lesions of
rectosigmoid junction, liver, lymph nodes, and extensive osseous metastases. She was she completed palliative radiation therapy and began brigatinib kinase inhibitory therapy 02/23/25. She does not feel the brigatinib and weakness are correlated, as
that has been gradually worsening over the course of several weeks. She had a fall last week and fractured her left humerus and 9th rib (evaluated by outpatient ortho- treated conservatively, L arm sling). Yesterday was unable to ambulate and felt
like she couldn't move her legs or feel the floor. She also complains of thoracic and lumbar spine pain. Denies urinary/fecal incontinence, saddle anesthesia, unilateral symptoms, confusion, difficulty eating/drinking. Reports her PO intake has
decreased with worsening ambulatory dysfunction but is able to take in adequate amount. Prior to this, she says that a few weeks ago she was ambulating with a walker without issue.
On examination, she reports slight improvement in leg swelling and sensation. Still has weakness, but able to move legs/feet slightly better. Continue to report thoracic/lumbar back pain and rib pain. She desires continuing full treatment to
hopefully regain ability to ambulate; continue cancer treatment/follow up as previously planned.
Past-Medical/Surgical History
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
recent L humerus fracture
hypertension
hyponatremia
anemia chronic disease
chronic LBBB
bone biopsy
laser glaucoma surgery
parathyroidectomy (benign nodules)
Csection
s/p L hip replacement for L hip avascular necrosis
Patient Medication
�Medication �Instructions �Recorded �Confirmed �Last Taken �Type
ascorbic acid (vitamin C) 500 mg 500 mg PO DAILY Supplement 01/13/25 02/25/25 02/24/25 History
tablet (Vitamin C)
glucosamine [id number] 1 tab PO DAILY Supplement 01/13/25 02/25/25 02/24/25 History
elke 1,500 mg-400 unit-100 mg
tablet (Osteo Bi-Flex (5-Loxin))
lisinopril 5 mg tablet 5 mg PO DAILY Blood Pressure 01/13/25 02/25/25 02/24/25 History
morphine 15 mg tablet,extended 15 mg PO Q12H Pain 01/13/25 02/25/25 02/24/25 History
release
morphine 30 mg immediate release 30 mg PO Q4HPRN PRN severe pain 01/13/25 02/25/25 02/25/25 00:15 History
tablet
polyethylene glycol 3350 17 gram 17 g PO DAILYPRN PRN constipation 01/13/25 02/25/25 Unknown History
oral powder packet (Miralax)
prochlorperazine maleate 5 mg 5 mg PO TIDPRN PRN nausea 01/13/25 02/25/25 Unknown History
tablet
therapeutic multivitamin 1 tab PO DAILY Supplement 01/13/25 02/25/25 02/24/25 History
vitamin A-vitamin C-vit E-min 1 tab PO DAILY Supplement 01/13/25 02/25/25 02/24/25 History
tablet
zinc sulfate 50 mg zinc (220 mg) 50 mg PO DAILY Supplement 01/13/25 02/25/25 02/24/25 History
tablet
pantoprazole 40 mg tablet,delayed 40 mg PO DAILY #30 tabs 01/17/25 02/25/25 02/24/25 Rx
release
acetaminophen 500 mg tablet 500 mg PO Q6HPRN PRN mild pain 02/25/25 02/25/25 Unknown History
(Tylenol Extra Strength)
berberine chloride 500 mg capsule 375 mg PO DAILY 02/25/25 02/25/25 02/24/25 History
brigatinib 90 mg (7)-180 mg (23) 0 ea PO PER PKG DIR 02/25/25 02/25/25 02/23/25 History
tablets in a dose pack
calcium carbonate 1,000 mg PO BID 02/25/25 02/25/25 02/24/25 History
cyanocobalamin (vitamin B-12) 1,000 mcg PO DAILY 02/25/25 02/25/25 02/24/25 History
1,000 mcg tablet
denosumab 60 mg/mL subcutaneous 60 mg SC [id number] 02/25/25 02/25/25 Unknown History
syringe (Prolia)
iodine (kelp) 1 tab PO DAILY 02/25/25 02/25/25 02/24/25 History
loperamide 2 mg tablet 2 mg PO BIDPRN PRN diarrhea 02/25/25 02/25/25 02/24/25 History
ondansetron 4 mg disintegrating 4 mg PO Q6HPRN PRN nausea 02/25/25 02/25/25 02/23/25 History
tablet
Active Medications
Generic Name Dose Route Start Last Admin
Trade Name Freq PRN Reason Stop Dose Admin
Acetaminophen 500 mg 02/25/25 14:50
Acetaminophen 500 Mg Tablet PO 03/25/25 14:49
Q6HPRN PRN
mild pain
Ascorbic Acid 500 mg 02/25/25 15:06 02/25/25 16:15
Ascorbic Acid 500 Mg Tablet PO 03/25/25 15:05 500 mg
DAILY MIRLANDE Administration
Bisacodyl 10 mg 02/25/25 15:06
Bisacodyl 10 Mg Rectal Suppository RECTAL 03/25/25 15:05
[id number] PRN
constipation
Calcium Carbonate 1,000 mg 02/25/25 15:06 02/25/25 21:06
Calcium Carbonate 500 Mg Tablet PO 03/25/25 15:05 1,000 mg
BID MIRLANDE Administration
Cyanocobalamin 1,000 mcg 02/25/25 15:06 02/25/25 16:15
Cyanocobalamin 1,000 Mcg Tablet PO 03/25/25 15:05 1,000 mcg
DAILY MIRLANDE Administration
Enoxaparin Sodium 40 mg 02/25/25 18:00 02/25/25 17:36
Enoxaparin Sodium 40 Mg/0.4 Ml Syringe SC 03/25/25 17:59 40 mg
QPM MIRLANDE Administration
Furosemide 20 mg 02/26/25 08:00
Furosemide 20 Mg (10 Mg/Ml) 2 Ml Vial IV 03/26/25 07:59
DAILY MIRLANDE
Lisinopril 5 mg 02/25/25 15:06 02/25/25 16:15
Lisinopril 5 Mg Tablet PO 03/25/25 15:05 5 mg
DAILY MIRLANDE Administration
Loperamide HCl 2 mg 02/25/25 15:39
Loperamide 2 Mg Capsule PO 03/25/25 15:38
BIDPRN PRN
diarrhea
Morphine Sulfate 30 mg 02/25/25 15:37 02/26/25 02:00
Morphine 15 Mg Immediate Release Tablet PO 03/11/25 15:36 30 mg
Q4HPRN PRN Administration
severe pain
Morphine Sulfate 15 mg 02/25/25 20:00 02/26/25 08:28
Morphine 15 Mg Extended Release Tablet PO 03/11/25 19:59 15 mg
Q12 MIRLANDE Administration
Multivitamins Therapeutic 1 tablet 02/25/25 15:06 02/25/25 16:15
Multivitamin Tablet PO 03/25/25 15:05 1 tablet
DAILY MIRLANDE Administration
Ondansetron HCl 4 mg 02/25/25 15:06
Ondansetron 4 Mg (Orally-Disintegrating) Tablet PO 03/25/25 15:05
Q6HPRN PRN
nausea
Pantoprazole Sodium 40 mg 02/25/25 15:06 02/25/25 16:15
Pantoprazole 40 Mg Delayed Release Tablet PO 03/25/25 15:05 40 mg
DAILY MIRLANDE Administration
Polyethylene Glycol 17 grams 02/25/25 15:06
Polyethylene Glycol Powder 17 Grams Packet PO 03/25/25 15:05
DAILYPRN PRN
constipation
Prochlorperazine Maleate 5 mg 02/25/25 15:06
Prochlorperazine 5 Mg Tablet PO 03/25/25 15:05
TIDPRN PRN
nausea
Senna/Docusate Sodium 1 tablet 02/25/25 15:06
Docusate W/Senna (Medina-Colace) Tablet PO 03/25/25 15:05
BIDPRN PRN
constipation
Sodium Chloride 0 flush 02/25/25 15:00
Sodium Chloride 0.9% (Flush) Syringe IV 03/25/25 14:59
PER PROTOCOL MIRLANDE
Zinc 50 mg 02/25/25 15:06 02/25/25 16:14
Zinc 50 Mg (Zinc Sulfate 220 Mg) Capsule PO 03/25/25 15:05 50 mg
DAILY MIRLANDE Administration
Review of Systems
-
History Source: Patient
Constitutional: Reports Weight Loss, Fatigue and Weakness; Denies Fever or Chills
EENT: Reports No Symptoms
Respiratory: Denies Cough, Hemoptysis or Trouble Breathing
Cardiac: Denies Chest Pain or Syncope
GI: Reports No Symptoms; Denies Abdominal Pain, Nausea, Vomiting, Diarrhea or Constipated
: Reports No Symptoms
Musculoskeletal: Reports Other (see HPI)
Skin: Reports No Symptoms
Neuro: Reports Other (see HPI); Denies Dizzy, Tremors or Seizures
Endocrine: Reports No Symptoms
Hematologic/Lymphatic: Reports No Symptoms
Psych: Reports No Symptoms and Other (frustrated with insurance; denies SI/HI/SH)
Physical Exam
-
General: Sitting up in bed. No acute distress. Appears comfortable overall. Conversant. Requiring assistance to eat breakfast.
HEENT: Normocephalic, atraumatic. Nasal canula oxygen supplementation.
Lungs: Nonlabored breathing. Able to talk in full sentences.
Spine: Point tenderness at thoracic and lumbar spine. Paraspinal muscles TTP at this level. Unable to visually examine back as ROM sitting forward was limited by pain.
Extremities: Awake alert oriented x3. +1 edema bilateral lower extremities. 3/5 strength bilat lower extremities. Left arm immobilized in splint/sling. No focal neurologic deficits apparent.
Psych: Calm. Appropriate affect.
Labs
Lab Results
WBC 13.7 10^3/uL (4.8-10.8) H 02/26/25 08:05
RBC 3.90 10^6/uL (4.20-5.40) L 02/26/25 08:05
Hgb 10.3 g/dL (12.0-16.0) L 02/26/25 08:05
Hct 31.9 % (37.0-47.0) L 02/26/25 08:05
MCV 81.8 fL (81.0-99.0) 02/26/25 08:05
MCH 26.4 pg (27.0-31.0) L 02/26/25 08:05
MCHC 32.3 g/dL (33.0-37.0) L 02/26/25 08:05
RDW 19.5 % (11.5-14.5) H 02/26/25 08:05
Plt Count 391 10^3/uL (130-400) 02/26/25 08:05
MPV 9.1 fL (7.4-10.4) 02/26/25 08:05
Abs Immat Gran (auto) 0.3 10^3/uL (0-0.05) H 02/26/25 08:05
Absolute Neuts (auto) 10.5 10^3/uL (1.4-6.5) H 02/26/25 08:05
Absolute Lymphs (auto) 1.9 10^3/uL (1.2-3.4) 02/26/25 08:05
Absolute Monos (auto) 1.0 10^3/uL (0.1-0.6) H 02/26/25 08:05
Absolute Eos (auto) 0.0 10^3/uL (0-0.7) 02/26/25 08:05
Absolute Basos (auto) 0.1 10^3/uL (0-0.2) 02/26/25 08:05
Immature Gran % 2.2 % (0-0.5) H 02/26/25 08:05
Neutrophils % 76.4 % (42.2-75.2) H 02/26/25 08:05
Lymphocytes % 13.9 % (20.5-51.1) L 02/26/25 08:05
Monocytes % 7.1 % (1.7-9.3) 02/26/25 08:05
Eosinophils % 0.0 % (0-6) 02/26/25 08:05
Basophils % 0.4 % (0-2) 02/26/25 08:05
Creatinine 0.5 mg/dL (0.6-1.0) L 02/25/25 05:29
Vital Signs
Vital Signs
Temp Pulse Resp BP Pulse Ox
99.2 F 111 18 125/78 88
02/26/25 07:55 02/26/25 07:55 02/26/25 07:55 02/26/25 07:55 02/26/25 07:55
[2025-02-26] MEDS: VITAMIN C 500 MG PO (08:50)
[2025-02-26] MEDS: OSCAL CAL 500 1000 MG PO ×2 (08:50→20:14)
[2025-02-26] MEDS: ZINC 50 MG PO (08:53)
[2025-02-26] MEDS: PROTONIX 40 MG PO (08:53)
[2025-02-26] MEDS: THERAGRAN 1 TABLET PO (08:54)
[2025-02-26] MEDS: ZESTRIL 5 MG PO (08:54)
[2025-02-26] MEDS: VITAMIN B-12 1000 MCG PO (08:54)
[2025-02-26] MEDS: LASIX 20 MG IV (08:54)
[2025-02-26 08:55] LABS: Troponin I < 0.012 ng/ml
--- NOTE | 2025-02-26 09:06 | W.PN.PUL3 ---
Today's Communication / Plan
-
Doing well with diuresis, improving significantly
ECHO planning today
Repeat CXR in AM
Will arrange for home O2 eval in AM as well
PT/OT evals for placement
Can assess for d/c in next 24 hours if doing well otherwise
Reviewed plan with at bedside
Assessment
-
Patient is a 69-year-old female with history of left hip replacement for left hip avascular necrosis, recent left humerus fracture (is in splint and [facility] Dr. Finn Desai outpatient), metastatic cancer of unknown origin, and
hypertension who presented with increased generalized weakness for last few weeks to months, lower extremity swelling and hypoxia. Upon arrival, EMS stated that they found patient with a oxygen room air saturation of 50%. She was placed on 6 L nasal
cannula in EMS/in the ER and saturated 89%. CT showing CHF signs, we are consulted for evaluation.
Acute hypoxic respiratory failure
Small Bilateral Pleural Effusions/Moderate CHF on CT Chest
Left upper lobe mass with spiculated margins measuring up to 2.8 cm, known primary lung NSCLC
Generalized weakness
LE Swelling
Subacute left humerus fracture (is in splint and [facility] Dr. Finn Desai outpatient)
Conditions present [employer]
Metastatic disease of unknown origin, known to [facility]
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
Status post flex sigmoidoscopy with no lesion noted in the rectosigmoid junction
Known pulmonary nodule, JOHN measuring 1.5cm on PET
ALK mutation typical for non-small cell lung cancer, completed palliative radiation therapy 01/30/2025 to areas of painful bone disease
HTN
Left Hip Avascular Necrosis s/p Left Hip Replacement
Left bundle branch block (LBBB)
Chest pain syndrome
Family history of early CAD
Plan
Hypoxemia noted on arrival, O2 jared 50s reportedly, now on NC
She is not known to be on home O2 in the past
Home O2 evaluation in AM
Prior history of lung disease is NOT noted --she has nodule noted on CT
She is well known to [facility]. Had been undergoing w/u for her diffuse met disease felt to be due to primary lung NSCLC based on ALK testing, she has a known JOHN nodule, previously 1.5cm now 1.6 with margins of 2.8cm with corresponding
lymphadenopathy.
It was never planned for outpatient biopsy of her lung nodule as this was presumed based on genetic testing. She has not previously seen outpatient pulmonary in the past. She denies any prior history of lung disease.
Onc consult placed, we will follow up recs
CT chest obtained indicating pulmonary edema with effusions. She was given 1 dose of Lasix with output of 1 L and improvement of her lower extremity edema.
The size of her effusions are likely too small for thoracentesis but if enlarging, can plan for diag tap
Suspect patient has acute CHF exacerbation given CT, LE edema, response to lasix
Would be reasonable to continue small daily doses and evaluate weights/CXR response/O2 weaning
PET CT reviewed as OP as well, she has associated LNS in med/hilum
Will repeat CXR in next 24-48 hours to assess status
Prior ECHO results are reviewed indicating preserved function
Repeat study pending but this is limited due to her LUE limited ROM
Await results if able to obtain limited views
Patient had a left humerus fracture from a fall 5 days ago for which she saw outpatient orthopedics and told to keep her arm in a splint until outpatient follow-up.
Patient is requesting second opinion from [facility], consult to be placed by care team
Generalized weakness a prevailing issue
Will need PT/OT evals, consideration for PM&R as well
Will need outpatient pulmonary evaluation in our office for PFTs and 6MWT
Reviewed with patient
Extensive discussion with patient's and daughter at bedside ( is a IMAGE SCIENTIST)
If continues to improve, can assess for d/c in next 24 hours
Diagnostic Data
Chest X-Ray: 01/16/25- Left-sided port with tip within the SVC. No evidence for significant pneumothorax.
CT Scan: CHEST 02/25/25- 1. No pulmonary embolism identified.
2. Moderate CHF with small bilateral pleural effusions.
3. Left upper lobe mass with spiculated margins measuring up to 2.8 cm in diameter, pulmonary malignancy versus less likely metastasis.
4. Diffuse osseous metastatic disease. Fracture proximal left humerus, presumably pathologic. Pathologic fracture left coracoid process. Nondisplaced fracture lateral left ninth rib. Thoracic spine compression deformities of indeterminate acuity.
PET 01/01/25- hypermetabolic 1.5 x 1.4 cm nodule within the anterior left upper lobe; multiple hypermetabolic lymph nodes within the superior mediastinum/left hilum consistent with malignant nodes. Additionally there is a right supraclavicular
hypermetabolic lymph node, likely an additional malignant lymph node.
Mild hypermetabolic activity in the region of the rectosigmoid junction which demonstrates a max SUV of 4.9; hypermetabolic lesion within the anterior right hepatic lobe which likely represents a hepatic metastasis; extensive osseous hypermetabolic
metastasis throughout the axial and proximal appendicular skeleton. There are additional nonhypermetabolic sclerotic foci which likely represent additional sclerotic osseous metastasis.
Echo: 08/10/21- Normal left ventricular systolic function. Left ventricular ejection fraction is 50-55%. No significant valvular disease. No significant change since the prior study of 2018.
PFT's:
Reports and relevant images were personally reviewed.
Total time spent on this consultation __51__ minutes which includes review of history, physical exam, medications, laboratory data, personal review of imaging, extensive review of outpatient records, discussion with care team and respiratory therapy.
Subjective Data
-
Date of Service:
Date of Service: February 26, 2025
Chief Complaint: Pulmonary Follow Up
Subjective:
Doing better today in terms of SOB
Diuresing well
Objective Data
Data Reviewed
Vital Signs / I&O / Oxygen:
Vital Signs
Temp Pulse Resp BP Pulse Ox
99.2 F 111 18 125/78 88
02/26/25 07:55 02/26/25 07:55 02/26/25 07:55 02/26/25 07:55 02/26/25 07:55
Intake and Output
02/25/25 02/26/25 02/27/25
06:59 06:59 06:59
Intake Total 480 / 480
Output Total 200 / 200 450 / 450
Balance 280 / 280 -450 / -450
SaO2 88
Nasal Cannula flow liters per 6
minute
Physical Exam
General: Comfortable and Other (NAD)
HEENT: Normocephalic, Anicteric and Moist Mucous Membranes
Cardiovascular: S1-S2, Regular Rhythm and Peripheral Edema
Respiratory: Crackles and Non-Labored Respirations
GI: Soft, Non Distended and Non Tender
Neurology: Awake, Alert, Oriented, No Motor Deficits and Other (LUE in Sling)
Skin: Warm, Dry and Good Color
Labs/Micro/Reports
Lab Data
02/26/25 08:05
[2025-02-26 09:35] LABS: ALT (SGPT) 28 U/L (0-35); AST (SGOT) 59 U/L (14-36); Albumin 2.7 g/dl (3.5-5.0); Alkaline Phosphatase 392 U/L (38-126); Blood Urea Nitrogen 13 mg/dl (7-17); Carbon Dioxide 26 mmol/L (22-30); Chloride 95 mmol/L (98-107); Estimated Creatinine Clearance 66 ml/min; Glucose 137 mg/dl (70-99); Potassium 4.2 mmol/L (3.5-5.1); Sodium 126 mmol/L (135-145); Total Bilirubin 0.8 mg/dl (0.2-1.3); Total Protein 5.2 g/dl (6.3-8.2); eGFR > 60.00
[2025-02-26 10:10] LABS: Calcium 6.6 mg/dl (8.4-10.2)
[2025-02-26] MEDS: CALCIUM GLUCONATE 100 IV (13:53)
[2025-02-26] MEDS: ZOFRAN ODT (ORALLY DISINTEGRATING) 4 MG PO ×2 (14:26→20:55)
[2025-02-26 14:27] VITALS: BP 112/73
--- NOTE | 2025-02-26 15:12 | W.PN.HOSP.TC ---
Today's Communication/Plan
-
Prolonged QTc
Continue to monitor on telemetry
Replaced Calcium
Recheck calcium (corrected for albumin) this evening
Continue IV Lasix
Wean oxygen as tolerated
Assessment / Plan
Assessment / Plan
Physical Exam
General: No Apparent Distress
HEENT: NormoCephalic and Moist mucous membranes
Respiratory: Decreased Breath Sounds
Cardiac: S1/S2 and Tachycardia
GI: Soft, Non Tender and Normal Bowel Sounds
Musculoskeletal: No Cyanosis, Edema, Left Lower Extremity and Edema, Right Lower Extremity
Skin: Warm and Dry
Neuro: Awake, Alert, AO x 3 and Other (Bilateral lower extremity strength 2/5. Sensation grossly intact in the bilateral lower extremities.)
Psych: Calm and Intact Judgment/Insight
Assessment/Plan
Acute Hypoxic Respiratory Failure
Small Bilateral Pleural Effusions
Moderate CHF on CT Chest -- concern for possible HFpEF exacerbation (b/c of hypoxia, good response to Lasix, lower extremity edema, and CHF on CT, although echo and proBNP not strongly suggestive of CHF)
Concern for Fluid Overload
Left upper lobe mass with spiculated margins measuring up to 2.8 cm in diameter, pulmonary malignancy versus less likely metastasis on CT Chest
-EMS found patient to be hypoxic with oxygen saturation of 50% on room air -- placed on 6 L in the ER with saturation 89%
-No PE on CT Chest, and recent 02/16/25 lower extremity US showed no DVT
-ProBNP indeterminated at 615
-Echo -- technically difficult given patient's left humerus fracture and need for splinting LUE (and patient does not want to move the LUE) -- but overall appears unremarkable
-Troponins insignificant. EKG noted.
-Concern for hypoxia from left upper lobe mass and possible CHF
-Continue oxygen supplementation to maintain oxygen saturations >90%
-Consult oncology given patient's presentation and history as below
Prolonged QTc
-Avoid/minimize QTc-prolonging medications
-Recheck EKG in the morning
Hyponatremia
-Suspected from malignancy
-PO Fluid Restriction 40 ounces daily started
Hypocalcemia
-Possibly from IV Lasix
-Even when corrected on 02/26/25 for low albumin, calcium is low
-Replaced with 1 gram IV Calcium on 02/26/25, patient also has prolonged QTc
Increased bilateral lower extremity weakness
Increased leg swelling/edema recently
-Swelling can be from low albumin
-Lasix IV 20 mg daily helping with bilateral lower extremity swelling
-No DVT on recent bilateral lower extremity ultrasound
Recent January 2025 hospitalization for lower extremities weakness/tingling--likely due to metastatic spine disease
-It was noted that there was no cord compression on T spine, L spine MRI, or brain MRI--and steroids were started but steroids were stopped by oncology outpatient prior to this admission
Leukocytosis with immature granulocytes
-Suspected from malignant process
Anemia of Chronic Disease
-It was noted that recent iron panel, B12, ferritin all without deficiency
Recent Fall with left humerus fracture
Pathologic fracture left coracoid process
Nondisplaced fracture lateral left ninth rib
Thoracic spine compression deformities of indeterminate acuity
-On splint, has been seeing [facility] physician Dr. Finn Desai
High ALP
-Likely related to bone metastases
History of metastatic cancer
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
Diffuse osseous metastatic disease
-Patient sees oncologist Dr. Ritter outpatient
-Oncology consulted
-Continue outpatient brigatinib
Essential Hypertension
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
Hypertension
DVT Prophylaxis: Lovenox
Code Status: Full Code
Anticipated Discharge: 24 - 48 hours
Subjective/Interval History
-
Date of Service: February 26, 2025
Objective Data
-
Labs:
Laboratory Results
02/26/25
08:05
WBC 13.7 H
Hgb 10.3 L
Hct 31.9 L
Plt Count 391
Sodium 126 L
Potassium 4.2
Chloride 95 L
Carbon Dioxide 26
BUN 13
Creatinine 0.4 L
Glucose 137 H
Calcium 6.6 L*
Total Bilirubin 0.8
AST 59 H
ALT 28
Alkaline Phosphatase 392 H
Vital Signs:
Vital Signs
Temp Pulse Resp BP Pulse Ox
99.4 F 108 18 112/73 94
02/26/25 14:27 02/26/25 14:27 02/26/25 14:27 02/26/25 14:27 02/26/25 14:27
I&O
02/25/25 02/26/25 02/27/25
06:59 06:59 06:59
Intake Total 480 / 480
Output Total 200 / 200 450 / 450
Balance 280 / 280 -450 / -450
[2025-02-26 15:26] VITALS: BP 96/65
[2025-02-26] MEDS: NON-FORMULARY ITEM 90 MG PO (18:06)
[2025-02-26] MEDS: LOVENOX 40 MG SC (18:07)
[2025-02-26 19:38] VITALS: BP 106/62
[2025-02-26 22:22] LABS: Albumin 2.5 g/dl (3.5-5.0)
[2025-02-26 23:29] VITALS: BP 110/68
[2025-02-27] VITALS (7 sets, daily range): BP systolic 99–149; BP diastolic 55–73; PULSE 102; O2SAT 94; BMI 25.1
[2025-02-27] MEDS: MORPHINE SULFATE 30 MG PO ×2 (05:00→14:13)
[2025-02-27 06:22] LABS: % Basophils 0.3 % (0-2); % Eosinophils 0.1 % (0-6); % Immature Granulocytes 1.7 % (0-0.5); % Lymphocytes 11.9 % (20.5-51.1); % Monocytes 5.2 % (1.7-9.3); % Neutrophils 80.8 % (42.2-75.2); Absolute Immature Granulocytes 0.3 10^3/uL (0-0.05); Absolute Lymphocytes 1.8 10^3/uL (1.2-3.4); Absolute Monocytes 0.8 10^3/uL (0.1-0.6); Absolute Neutrophils 12.1 10^3/uL (1.4-6.5); Hematocrit 31.2 % (37.0-47.0); Hemoglobin 10.3 g/dL (12.0-16.0); Mean Corpuscular Hgb 26.8 pg (27.0-31.0); Mean Platelet Volume 9.2 fL (7.4-10.4); Nucleated Red Blood Cells % 0 %; Platelet Count 400 10^3/uL (130-400); Red Blood Cell Count 3.85 10^6/uL (4.20-5.40); Red Cell Dist. Width 19.1 % (11.5-14.5); White Blood Cell Count 14.9 10^3/uL (4.8-10.8)
[2025-02-27 06:37] LABS: ALT (SGPT) 23 U/L (0-35); AST (SGOT) 51 U/L (14-36); Albumin 2.5 g/dl (3.5-5.0); Alkaline Phosphatase 324 U/L (38-126); Blood Urea Nitrogen 13 mg/dl (7-17); Calcium 6.8 mg/dl (8.4-10.2); Carbon Dioxide 25 mmol/L (22-30); Chloride 92 mmol/L (98-107); Estimated Creatinine Clearance 66 ml/min; Glucose 110 mg/dl (70-99); Potassium 4.6 mmol/L (3.5-5.1); Sodium 124 mmol/L (135-145); Total Bilirubin 0.9 mg/dl (0.2-1.3); eGFR > 60.00
--- NOTE | 2025-02-27 08:03 | W.PN.HOSP.TC ---
Today's Communication/Plan
-
Steroids
IV Lasix and continue bladder scans protocol
See plan
Assessment / Plan
Assessment / Plan
Physical Exam
General: No Apparent Distress
HEENT: Normocephalic and Moist mucous membranes
Respiratory: Decreased Breath Sounds
Cardiac: S1/S2 and Tachycardia
GI: Soft, Non Tender and Normal Bowel Sounds
Musculoskeletal: No Cyanosis, Edema, Left Lower Extremity and Edema, Right Lower Extremity
Skin: Warm and Dry
Neuro: Awake, Alert, AO x 3 and Other (Bilateral lower extremity strength 2/5. Sensation grossly intact in the bilateral lower extremities.)
Psych: Calm and Intact Judgment/Insight
Assessment/Plan
Acute Hypoxic Respiratory Failure
Small Bilateral Pleural Effusions
Moderate CHF on CT Chest -- concern for possible HFpEF exacerbation (b/c of hypoxia, good response to Lasix, lower extremity edema, and CHF on CT, although echo and proBNP not strongly suggestive of CHF)
Concern for Fluid Overload
Left upper lobe mass with spiculated margins measuring up to 2.8 cm in diameter, pulmonary malignancy versus less likely metastasis on CT Chest
-EMS found patient to be hypoxic with oxygen saturation of 50% on room air -- placed on 6 L in the ER with saturation 89%
-No PE on CT Chest, and recent 02/16/25 lower extremity US showed no DVT
-ProBNP indeterminated at 615
-Echo -- technically difficult given patient's left humerus fracture and need for splinting LUE (and patient does not want to move the LUE) -- but overall appears unremarkable
-Troponins insignificant. EKG noted.
-Concern for hypoxia from left upper lobe mass and possible CHF
-Continue oxygen supplementation to maintain oxygen saturations >90%
-Consult oncology given patient's presentation and history as below
Prolonged QTc
-Avoid/minimize QTc-prolonging medications
-Recheck EKG in the morning
Hyponatremia
-Suspected from malignancy
-PO Fluid Restriction 40 ounces daily started
-Neurology consult for consideration of [place], sodium is worsening
Hypocalcemia
-Possibly from IV Lasix
-Even when corrected on 02/26/25 for low albumin, calcium is low
-Replaced with 1 gram IV Calcium on 02/26/25, patient also has prolonged QTc, additional replacement ordered on 02/27/25
-Nephrology consulted given persistent hypocalcemia and hyponatremia
Increased bilateral lower extremity weakness
Increased leg swelling/edema recently
-Swelling can be from low albumin
-Lasix IV 20 mg daily helping with bilateral lower extremity swelling
-No DVT on recent bilateral lower extremity ultrasound
-Hem/onc consulted neurosurgery given spinal cord compression (edema at T7-8 levels), and they recommended: TLSO bracing when patient is weightbearing/out of bed to maintain spinal alignment, a course of high-dose
steroids with 10 mg IV dexamethasone x 1, 6 mg every 6 hours for an additional 24 hours, and then can slowly taper down as tolerated
-Given patient's extensive metastatic disease, and that she just recently completed radiotherapy, neurosurgery will only offer surgical decompression if absolutely needed/indicated and that would be if she continues to
demonstrate severe neurological decline in motor strength without any other contributing cause. High risks with surgery at this time.
Recent January 2025 hospitalization for lower extremities weakness/tingling--likely due to metastatic spine disease
-It was previously noted that there was no cord compression on T spine, L spine MRI, or brain MRI--and steroids were started but steroids were stopped by oncology outpatient prior to this admission
-Now, neurosurgeon mentioned there is some cord edema at the T7-8 levels
Leukocytosis with immature granulocytes
-Suspected from malignant process
-Also had Temp 100.1 on 02/26-02/27
-Monitor for signs or symptoms of infection
Anemia of Chronic Disease
-It was noted that recent iron panel, B12, ferritin all without deficiency
Recent Fall with left humerus fracture
Pathologic fracture left coracoid process
Nondisplaced fracture lateral left ninth rib
Thoracic spine compression deformities of indeterminate acuity
-On splint, has been seeing [facility] physician Dr. Finn Desai
High ALP
-Likely related to bone metastases
History of metastatic cancer
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
Diffuse osseous metastatic disease
-Patient sees oncologist Dr. Ritter outpatient
-Oncology consulted
-Continue outpatient brigatinib
Essential Hypertension
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
Hypertension
DVT Prophylaxis: Lovenox
Code Status: Full Code
Anticipated Discharge: > 48 hours
Subjective/Interval History
-
Date of Service: February 27, 2025
Patient was seen and examined. She still has weakness, tingling and back pain.
Objective Data
-
Labs:
Laboratory Results
02/26/25 02/26/25 02/27/25
21:34 22:02 05:32
WBC 14.9 H
Hgb 10.3 L
Hct 31.2 L
Plt Count 400
Sodium 124 L
Potassium 4.6
Chloride 92 L
Carbon Dioxide 25
BUN 13
Creatinine 0.4 L
Glucose 110 H
Calcium Cancelled 7.0 L 6.8 L*
Total Bilirubin 0.9
AST 51 H
ALT 23
Alkaline Phosphatase 324 H
Vital Signs:
Vital Signs
Temp Pulse Resp BP Pulse Ox
100.1 F 117 18 109/69 95
02/27/25 07:48 02/27/25 07:48 02/27/25 07:48 02/27/25 07:48 02/27/25 07:48
I&O
02/26/25 02/27/25 02/28/25
06:59 06:59 06:59
Intake Total 480 / 480 480 / 480
Output Total 200 / 200 1200 / 1200
Balance 280 / 280 -720 / -720
[2025-02-27] MEDS: LASIX 20 MG IV (08:06)
[2025-02-27] MEDS: ZESTRIL 5 MG PO (08:07)
[2025-02-27] MEDS: VITAMIN C 500 MG PO (08:07)
[2025-02-27] MEDS: ZINC 50 MG PO (08:07)
[2025-02-27] MEDS: VITAMIN B-12 1000 MCG PO (08:07)
[2025-02-27] MEDS: MS CONTIN (EXTENDED RELEASE) 15 MG PO ×2 (08:07→20:12)
[2025-02-27] MEDS: TYLENOL 500 MG PO (08:08)
[2025-02-27] MEDS: THERAGRAN 1 TABLET PO (08:10)
[2025-02-27] MEDS: OSCAL CAL 500 1000 MG PO ×2 (08:13→20:13)
[2025-02-27] MEDS: PROTONIX 40 MG PO (08:26)
[2025-02-27 08:41] LABS: Ionized Calcium 0.91 mMOL/L (1.15-1.33)
[2025-02-27] MEDS: CALCIUM GLUCONATE 100 IV (08:55)
--- NOTE | 2025-02-27 08:58 | RESPNOTE ---
Attempted to ambulate patient. Pt refused ambulation and stated ' Im too weak to walk'. RR 16-20 HR 112. Pt sat was 97% on 6L, pt NC liter flow was weaned to 5L- sat dropped rapidly to 93%. RN bedside and agreed pt is unable to ambulate at this
time. Pt appeared SOB at rest. Ordering MD contacted and agree to not complete ambulation walk until closer to discharge. Will attempt to wean patients NC as tolerated.
--- NOTE | 2025-02-27 09:09 | W.PN.PUL3 ---
Today's Communication / Plan
-
Lasix IV ongoing with benefit, bladder scan today with plan for [facility] if needed
Follow daily weights/ IOs
LE weakness ongoing, neurosx consult obtained, extensive spinal dz on MRI
Onc following, consideration for steroids
PT/OT evals
Assessment
-
Patient is a 69-year-old female with history of left hip replacement for left hip avascular necrosis, recent left humerus fracture (is in splint and [facility] Dr. Finn Desai outpatient), metastatic cancer of unknown origin, and
hypertension who presented with increased generalized weakness for last few weeks to months, lower extremity swelling and hypoxia. Upon arrival, EMS stated that they found patient with a oxygen room air saturation of 50%. She was placed on 6 L nasal
cannula in EMS/in the ER and saturated 89%. CT showing CHF signs, we are consulted for evaluation.
Acute hypoxic respiratory failure
Small Bilateral Pleural Effusions/Moderate CHF on CT Chest
Left upper lobe mass with spiculated margins measuring up to 2.8 cm, known primary lung NSCLC
Generalized weakness
LE Swelling
Subacute left humerus fracture (is in splint and [facility] Dr. Finn Desai outpatient)
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
Metastatic disease of unknown origin, known to [facility]
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
Status post flex sigmoidoscopy with no lesion noted in the rectosigmoid junction
Known pulmonary nodule, JOHN measuring 1.5cm on PET
ALK mutation typical for non-small cell lung cancer, completed palliative radiation therapy 01/30/2025 to areas of painful bone disease
HTN
Left Hip Avascular Necrosis s/p Left Hip Replacement
Left bundle branch block (LBBB)
Chest pain syndrome
Family history of early CAD
Plan
Hypoxemia noted on arrival, O2 jared 50s reportedly, now on NC
She is not known to be on home O2 in the past
Home O2 evaluation eventually, has difficulty ambulating
Prior history of lung disease is NOT noted --she has nodule noted on CT
She is well known to [facility]. Had been undergoing w/u for her diffuse met disease felt to be due to primary lung NSCLC based on ALK testing, she has a known JOHN nodule, previously 1.5cm now 1.6 with margins of 2.8cm with corresponding
lymphadenopathy.
It was never planned for outpatient biopsy of her lung nodule as this was presumed based on genetic testing. She has not previously seen outpatient pulmonary in the past. She denies any prior history of lung disease.
Onc consult placed, we will follow up recs
CT chest obtained indicating pulmonary edema with effusions. She was given 1 dose of Lasix with output of 1 L and improvement of her lower extremity edema.
The size of her effusions are likely too small for thoracentesis but if enlarging, can plan for diag tap
Suspect patient has acute CHF exacerbation given CT, LE edema, response to lasix
Would be reasonable to continue small daily doses and evaluate weights/CXR response/O2 weaning
PET CT reviewed as OP as well, she has associated LNS in med/hilum
Repeat CXR 02/27 still with bilateral CHF, continue IV lasix
Bladder scan today and place [facility] if needed for IOs
Prior ECHO results are reviewed indicating preserved function
Repeat study showing stable findings, preserved EF
Patient had a left humerus fracture from a fall 5 days ago for which she saw outpatient orthopedics and told to keep her arm in a splint until outpatient follow-up.
Patient is requesting second opinion from [facility], consult to be placed by care team
Generalized weakness a prevailing issue
Will need PT/OT evals, consideration for PM&R as well
Neurosx eval now for LE weakness not improving
MRI with extensive spinal disease
Will need outpatient pulmonary evaluation in our office for PFTs and 6MWT
Reviewed with patient
Extensive discussion with patient's and daughter at bedside ( is a CONTRACTS ADVISOR)
Diagnostic Data
Chest X-Ray: 01/16/25- Left-sided port with tip within the SVC. No evidence for significant pneumothorax.
CT Scan: CHEST 02/25/25- 1. No pulmonary embolism identified.
2. Moderate CHF with small bilateral pleural effusions.
3. Left upper lobe mass with spiculated margins measuring up to 2.8 cm in diameter, pulmonary malignancy versus less likely metastasis.
4. Diffuse osseous metastatic disease. Fracture proximal left humerus, presumably pathologic. Pathologic fracture left coracoid process. Nondisplaced fracture lateral left ninth rib. Thoracic spine compression deformities of indeterminate acuity.
PET 01/01/25- hypermetabolic 1.5 x 1.4 cm nodule within the anterior left upper lobe; multiple hypermetabolic lymph nodes within the superior mediastinum/left hilum consistent with malignant nodes. Additionally there is a right supraclavicular
hypermetabolic lymph node, likely an additional malignant lymph node.
Mild hypermetabolic activity in the region of the rectosigmoid junction which demonstrates a max SUV of 4.9; hypermetabolic lesion within the anterior right hepatic lobe which likely represents a hepatic metastasis; extensive osseous hypermetabolic
metastasis throughout the axial and proximal appendicular skeleton. There are additional nonhypermetabolic sclerotic foci which likely represent additional sclerotic osseous metastasis.
Echo: 02/26/25- Normal LV size with low normal systolic function and no obvious wall motion abnormality. LVEF is 50-55% by visual estimation. Normal appearing right ventricular size and function.
Limited valvular interrogation, however, no significant valvular disease. Estimated pulmonary artery pressure of 25 mmHg, assuming a right atrial pressure of 3 mmHg. Compared to prior from August 10, 2021, no obvious change.
08/10/21- Normal left ventricular systolic function. Left ventricular ejection fraction is 50-55%. No significant valvular disease. No significant change since the prior study of 2018.
PFT's:
Reports and relevant images were personally reviewed.
Total time spent on this consultation __51__ minutes which includes review of history, physical exam, medications, laboratory data, personal review of imaging, extensive review of outpatient records, discussion with care team and respiratory therapy.
Subjective Data
-
Date of Service:
Date of Service: February 27, 2025
Chief Complaint: Pulmonary Follow Up
Subjective:
Doing well, no new complaints
She notes at times cannot tell if she is voiding
Hypoxemia ongoing
LE weakness as well
Objective Data
Data Reviewed
Vital Signs / I&O / Oxygen:
Vital Signs
Temp Pulse Resp BP Pulse Ox
100.1 F 117 18 109/69 95
02/27/25 07:48 02/27/25 08:07 02/27/25 07:48 02/27/25 08:07 02/27/25 07:48
Intake and Output
02/26/25 02/27/25 02/28/25
06:59 06:59 06:59
Intake Total 480 / 480 480 / 480
Output Total 200 / 200 1200 / 1200
Balance 280 / 280 -720 / -720
SaO2 95
Nasal Cannula flow liters per 6
minute
Physical Exam
General: Comfortable and Other (NAD)
HEENT: Normocephalic, Anicteric and Moist Mucous Membranes
Cardiovascular: S1-S2, Regular Rhythm and Peripheral Edema
Respiratory: Crackles and Non-Labored Respirations
GI: Soft, Non Distended and Non Tender
Neurology: Awake, Alert, Oriented, Other (B/L LE weakness) and Other (LUE in Sling)
Skin: Warm, Dry and Good Color
Labs/Micro/Reports
Lab Data
02/27/25 05:32
02/27/25 05:32
Microbiology
02/25/25 08:01 Urine Urine Culture - Final
--- NOTE | 2025-02-27 10:35 | W.PN.ONC ---
Documented by User: Elmira Mckeno MD, Resident 02/27/25 11:28
Today's Communication / Plan
-
IV dexamethasone, consult neurosurgery, continue brigatinib
Impression
Impression
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
On brigatinib therapy (started 02/23); s/p spinal radiation
weakness
back pain, DDD
Thoracic/lumbar MRI 02/26/25: Redemonstration of extensive osseous metastatic disease. Extraosseous malignant soft tissue in the spinal canal from T7 through T9 and retropulsion of the chronic pathologic compression fractures of T7 and T8 with
secondary severe spinal canal stenosis at T8 to moderate spinal canal stenosis at T7. No new pathologic compression fracture. Similar appearance of the thoracic spine and lumbar spine compared to previous MRI examinations from 01/14/2025 and
01/13/2025.
Plan
Plan
Continue outpatient brigatinib plan-- 90mg every evening through 03/01 (7 days total). Then on 03/02 increase dose to 180mg. Discussed with patient and , he is to bring home medication to hospital daily (informed him to leave supply for the
weekend).
Dec PET scan and January MRIs both with significant osseus metastatic disease of spine with slight extension into epidural space and vertebral body compression deformities--suspect chronic back pain is related to osseous metastasis/chronic compression
deformities. Progressive pain/weakness may be spinal cord compression given extraosseous malignancy within spinal canal T7-T9 and spinal canal stenosis. Will initiate IV dexamethasone and consult neurosurgery.
Subjective/Objective
Subjective/Objective
Continues to report back pain, tingling lower extremities, fatigue/brain fog. Denies loss of bowel/bladder function, numbness. Has not ambulated yet this hospitalization.
Physical exam
General: Sitting up in bed. No acute distress. Appears comfortable overall. Conversant.
HEENT: Normocephalic, atraumatic. Nasal canula oxygen supplementation.
Lungs: Nonlabored breathing. Able to talk in full sentences.
Extremities: Awake alert oriented x3. 3/5 strength bilat lower extremities. Left arm immobilized in splint/sling. No focal neurologic deficits apparent.
Psych: Calm. Appropriate affect.
Vital Signs:
Vital Signs
Temp Pulse Resp BP Pulse Ox
100.1 F 117 18 109/69 95
02/27/25 07:48 02/27/25 08:07 02/27/25 07:48 02/27/25 08:07 02/27/25 07:48
Lab Results:
Laboratory Data
WBC 14.9 10^3/uL (4.8-10.8) H 02/27/25 05:32
Hgb 10.3 g/dL (12.0-16.0) L 02/27/25 05:32
Plt Count 400 10^3/uL (130-400) 02/27/25 05:32
PT 13.4 Sec (11.4-14.6) 02/25/25 05:29
INR 0.99 02/25/25 05:29
APTT 29.8 Sec (23.4-35.0) 02/25/25 05:29
eGFR > 60.00 02/27/25 05:32
Orders
Orders
Orders From Last 24 Hours
02/26/25 09:36
MR Lumbar W/o & With Contrast Routine
02/26/25 09:54
Ice [Cold Application] As Directed
02/26/25 18:00
Brigatinib See Dose Instructions PO QPM

Documented by User: Shubham Bustamante MD 02/27/25 17:44
Plan
Plan
Continue outpatient brigatinib plan-- 90mg every evening through 03/01 (7 days total). Then on 03/02 increase dose to 180mg. Discussed with patient and , he is to bring home medication to hospital daily (informed him to leave supply for the
weekend).
Dec PET scan and January MRIs both with significant osseus metastatic disease of spine with slight extension into epidural space and vertebral body compression deformities--suspect chronic back pain is related to osseous metastasis/chronic compression
deformities. Progressive pain/weakness may be spinal cord compression given extraosseous malignancy within spinal canal T7-T9 and spinal canal stenosis. Will initiate IV dexamethasone and consult neurosurgery.
Oncology Addendum:
Patient seen and evaluated and agree w/ resident note and plan as outlined.
-metastatic ALK positive NSCLC
-reviewed recent MRI w/ results as above
-steroids initiated
-neurosurgery consultation
Will continue to follow with you.
--- NOTE | 2025-02-27 10:42 | W.CON.NEPH ---
Consultation
-
Date/Time Consultation Requested: 02/27/2025 8:30 AM
Date/Time Consultation Performed: 02/27/2025 10:40 AM
Requesting Provider: Dr. Torres
Performing Provider: Dr. Aguero
Reason for Consultation: Hyponatremia/hypocalcemia
Medical History
-
Chief Complaint: Hypocalcemia/hyponatremia
History of Present Illness:
Patient is a 69-year-old female with history of left hip replacement for left hip avascular necrosis, recent left humerus fracture (is in splint and [facility] Dr. Finn Desai outpatient), metastatic cancer of unknown origin now thought
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 Upon arrival, EMS stated that they found patient with a oxygen room air
saturation of 50%. She was placed on 6 L nasal cannula in EMS/in the ER and saturated 89%. CT showing CHF signs. Of note lab work from February 16, 2025 revealed a sodium of 128 with a calcium of 7.4. Nephrology was consulted today for ongoing
hypocalcemia and worsening hyponatremia with a serum sodium level of 124.
Past Medical History
Diffuse metastatic disease thought to be due to primary lung non-small cell lung CA
Hypertension
Anemia
Social History
Tobacco: Former Smoker
Alcohol: None
Family History
no CKD
Allergies / Home Medications
Allergy/AdvReac Type Severity Reaction Status Date / Time
No Known Allergies Allergy Verified 02/25/25 05:17
�Medication �Instructions �Recorded �Confirmed �Type
ascorbic acid (vitamin C) 500 mg 500 mg PO DAILY Supplement 01/13/25 02/25/25 History
tablet (Vitamin C)
glucosamine TAx-R2-Dmelyeuig 1 tab PO DAILY Supplement 01/13/25 02/25/25 History
elke 1,500 mg-400 unit-100 mg
tablet (Osteo Bi-Flex (5-Loxin))
lisinopril 5 mg tablet 5 mg PO DAILY Blood Pressure 01/13/25 02/25/25 History
morphine 15 mg tablet,extended 15 mg PO Q12H Pain 01/13/25 02/25/25 History
release
morphine 30 mg immediate release 30 mg PO Q4HPRN PRN severe pain 01/13/25 02/25/25 History
tablet
polyethylene glycol 3350 17 gram 17 g PO DAILYPRN PRN constipation 01/13/25 02/25/25 History
oral powder packet (Miralax)
prochlorperazine maleate 5 mg 5 mg PO TIDPRN PRN nausea 01/13/25 02/25/25 History
tablet
therapeutic multivitamin 1 tab PO DAILY Supplement 01/13/25 02/25/25 History
vitamin A-vitamin C-vit E-min 1 tab PO DAILY Supplement 01/13/25 02/25/25 History
tablet
zinc sulfate 50 mg zinc (220 mg) 50 mg PO DAILY Supplement 01/13/25 02/25/25 History
tablet
pantoprazole 40 mg tablet,delayed 40 mg PO DAILY #30 tabs 01/17/25 02/25/25 Rx
release
acetaminophen 500 mg tablet 500 mg PO Q6HPRN PRN mild pain 02/25/25 02/25/25 History
(Tylenol Extra Strength)
berberine chloride 500 mg capsule 375 mg PO DAILY Supplement 02/25/25 02/25/25 History
brigatinib 90 mg (7)-180 mg (23) 0 ea PO PER PKG DIR Cancer 02/25/25 02/25/25 History
tablets in a dose pack
calcium carbonate 1,000 mg PO BID Supplement 02/25/25 02/25/25 History
cyanocobalamin (vitamin B-12) 1,000 mcg PO DAILY Supplement 02/25/25 02/25/25 History
1,000 mcg tablet
denosumab 60 mg/mL subcutaneous 60 mg SC [id number] osteoporosis 02/25/25 02/25/25 History
syringe (Prolia)
iodine (kelp) 1 tab PO DAILY Supplement 02/25/25 02/25/25 History
loperamide 2 mg tablet 2 mg PO BIDPRN PRN diarrhea 02/25/25 02/25/25 History
ondansetron 4 mg disintegrating 4 mg PO Q6HPRN PRN nausea 02/25/25 02/25/25 History
tablet
Review of Systems
-
History Source: Patient
All other systems: Negative unless noted
Constitutional: Fatigue
Respiratory: Trouble Breathing
Cardiac: No Symptoms
Abdomen/GI: Nausea and Diarrhea
: No Symptoms
Musculoskeletal: Other (pain, lower extremity edema and weakness, left arm fracture)
Neurological: No Symptoms
Endocrine: No Symptoms
Hematologic/Lymphatic: No Symptoms
Physical Exam
Vital Signs
Vital Signs
Temp Pulse Resp BP Pulse Ox
100.1 F 117 18 109/69 95
02/27/25 07:48 02/27/25 08:07 02/27/25 07:48 02/27/25 08:07 02/27/25 07:48
Lab Results
02/27/25 05:32
02/27/25 05:32
WBC 14.9 10^3/uL (4.8-10.8) H 02/27/25 05:32
RBC 3.85 10^6/uL (4.20-5.40) L 02/27/25 05:32
Hgb 10.3 g/dL (12.0-16.0) L 02/27/25 05:32
Hct 31.2 % (37.0-47.0) L 02/27/25 05:32
Plt Count 400 10^3/uL (130-400) 02/27/25 05:32
Sodium 124 mmol/L (135-145) L 02/27/25 05:32
Potassium 4.6 mmol/L (3.5-5.1) 02/27/25 05:32
Chloride 92 mmol/L (98-107) L 02/27/25 05:32
Carbon Dioxide 25 mmol/L (22-30) 02/27/25 05:32
BUN 13 mg/dl (7-17) 02/27/25 05:32
Creatinine 0.4 mg/dL (0.6-1.0) L 02/27/25 05:32
eGFR > 60.00 02/27/25 05:32
Glucose 110 mg/dl (70-99) H 02/27/25 05:32
Calcium 6.8 mg/dl (8.4-10.2) L* 02/27/25 05:32
Adm-D-Ptqoygkkoaq Pept 615 pg/ml 02/25/25 05:29
Albumin 2.5 g/dl (3.5-5.0) L 02/27/25 05:32
Physical Exam
General: AOx3, Nontoxic , NAD but appears chronically ill
HEENT: PERRL, EOMI, Anicteric, Conjunctivae Clear, Ear/Nose Intact, Hearing Normal, Oropharynx Clear/Moist, Dentition Intact, Facial Symmetry, Neck Supple, Neck: Trachea Midline, No JVD and No Thyromegaly, no Bruits
Respiratory: Clear to auscultation bilaterally with normal lung excursion but decreased breath sounds to bases
Cardiac: S1/S2 and Regular Rate/Rhythm
Breast: Deferred by me
Abdomen: Soft, Nontender, Nondistended, Normal Bowel Sounds and No Hepatosplenomegaly
Rectal: Deferred by Provider
Genito-urinary: No Costovertebral Tenderness
Extremities: No Clubbing, No Cyanosis and trace pre tibial Edema
Skin: No Rash or open lesions
Neuro: Nonfocal/Grossly Intact, CN II-XII (Intact) and Strength (Musculoskeletal exam 5 out of 5 both upper and lower extremities)
Hematologic/Lymphatic: No Cervical Lymphadenopathy, No Submandibular Lymphadenopathy and No Supraclavicular Lymphadenopathy
Psych: Mood/afflect pleasant, Insight/judgement good and Appropriate
Vascular: plus 2 pedal and radial pulses
Data Reviewed
-
Radiology: Image Personally Visualized and interpreted (Chest x-ray personally reviewed showed interstitial edema bilaterally)
Labs: Labs Reviewed by me (BMP CBC urine awesome serum awesome)
Old Records: Reviewed (Reviewed previous labs from 02/16/2025: Calcium 7.4 sodium 128)
Assessment/Plan
-
Impression:
Hyponatremia
Hypocalcemia
Hypoxic respiratory failure on presentation with associated bilateral pleural effusion
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
Hypoalbuminemia/edema
Hypertension
Recent fall with subsequent left humerus fracture
Plan:
Hypocalcemia
- Replete calcium IV and po
- Check intact PTH and vitamin D levels
- Possibly related to chemotherapy administration (brigatinib)
Hyponatremia
-Likely a function of malignancy, hypotension, nausea, and pain
- Obtain urine osmolality
- Fluid restriction at 1200 cc/day
- Suspect due to underlying hypervolemia given exam and chest x-ray finding
- Maintain diuresis lasix 20mg IV daily, if this does not prove efficacious we will also consider addition of tolvaptan as there could be a strong malignancy associated SIADH process
--- NOTE | 2025-02-27 11:55 | CON.NS ---
Consultation
-
Date/Time Consultation Performed: 11:55; 02/27/2025
Performing Provider: Mak
Chief Complaint
History of Present Illness
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 She was started on systemic treatment 02/23/2025,
and she also has had extensive spinal radiation to metastases that were noted throughout the thoracic, and lumbar spine. She also has known chronic pathological/metastatic compression fractures of T7/T8. Patient has had ongoing back pain, but
presented with progressive bilateral lower extremity weakness. She sustained a fall approximately 1 week prior.
History was also obtained from the , who is a nurse in this assist, at bedside. Patient had a fall last Sunday, but thereafter, continue to maintain lower extremity strength. However over the last several days, she had progressive lower
extremity weakness, as well as hypoxia, and bilateral lower extremity edema. She does report increased numbness/tingling in lower extremities. She denies any perineal paresthesias, and denies any pauly incontinence. She reports she is able to
tell when she needs to go. However she feels hesitant to go in the bed, as she is not used to urinating in bed.
Patient had new MRI of the thoracic, lumbar spine, neurosurgery asked for consultation regarding findings. Currently, patient is being treated for acute hypoxic respiratory failure, CHF, fluid overload, and there is imaging findings noted to be
significant for left upper lobe mass, increased in size.
Review of Systems
-
A 10 point review of systems including constitutional, ENT, cardiovascular, respiratory, GI, , neurologic, musculoskeletal, neurologic, hematologic was performed, and was negative except for as stated in HPI.
Medication and Allergies
Home Medications
Home Medications
�Medication �Instructions �Recorded
ascorbic acid (vitamin C) 500 mg 500 mg PO DAILY Supplement 01/13/25
tablet (Vitamin C)
glucosamine [id number] 1 tab PO DAILY Supplement 01/13/25
elke 1,500 mg-400 unit-100 mg
tablet (Osteo Bi-Flex (5-Loxin))
lisinopril 5 mg tablet 5 mg PO DAILY Blood Pressure 01/13/25
morphine 15 mg tablet,extended 15 mg PO Q12H Pain 01/13/25
release
morphine 30 mg immediate release 30 mg PO Q4HPRN PRN severe pain 01/13/25
tablet
polyethylene glycol 3350 17 gram 17 g PO DAILYPRN PRN constipation 01/13/25
oral powder packet (Miralax)
prochlorperazine maleate 5 mg 5 mg PO TIDPRN PRN nausea 01/13/25
tablet
therapeutic multivitamin 1 tab PO DAILY Supplement 01/13/25
vitamin A-vitamin C-vit E-min 1 tab PO DAILY Supplement 01/13/25
tablet
zinc sulfate 50 mg zinc (220 mg) 50 mg PO DAILY Supplement 01/13/25
tablet
pantoprazole 40 mg tablet,delayed 40 mg PO DAILY #30 tabs 01/17/25
release
acetaminophen 500 mg tablet 500 mg PO Q6HPRN PRN mild pain 02/25/25
(Tylenol Extra Strength)
berberine chloride 500 mg capsule 375 mg PO DAILY Supplement 02/25/25
brigatinib 90 mg (7)-180 mg (23) 0 ea PO PER PKG DIR Cancer 02/25/25
tablets in a dose pack
calcium carbonate 1,000 mg PO BID Supplement 02/25/25
cyanocobalamin (vitamin B-12) 1,000 mcg PO DAILY Supplement 02/25/25
1,000 mcg tablet
denosumab 60 mg/mL subcutaneous 60 mg SC [id number] osteoporosis 02/25/25
syringe (Prolia)
iodine (kelp) 1 tab PO DAILY Supplement 02/25/25
loperamide 2 mg tablet 2 mg PO BIDPRN PRN diarrhea 02/25/25
ondansetron 4 mg disintegrating 4 mg PO Q6HPRN PRN nausea 02/25/25
tablet
Allergies
Allergies
Allergy/AdvReac Type Severity Reaction Status Date / Time
No Known Allergies Allergy Verified 02/25/25 05:17
Physical Exam
-
Exam:
Intermittently sleepy on exam, but awakens briskly and conversant, no apparent distress.
On nasal cannula.
Cranial nerves II through XII are grossly intact.
Motor: 5/5 strength bilaterally in upper extremities in all muscle groups
2/5 strength proximally in hip flexion, 3/5 strength bilaterally in knee extension. At least 4/5 strength bilaterally in dorsiflexion, and plantarflexion.
Extensive, 3+ pitting edema in bilateral lower extremities, with weeping of bilateral lower extremities noted.
MRI of the thoracic spine performed on 02/26/2025 is reviewed, and compared with the previous MRI performed on 01/13/2025. Images were personally viewed and interpreted by me. Overall compression deformity at T7-T8 appears to be stable with no
evidence of increased height loss, or increased retropulsion noted. However, there is notable increased fullness/cord edema at this level noted. Additionally, there is extensive bony metastasis throughout the thoracic and lumbar spine.
Problems
-
Problem Status Onset Code
Metastatic cancer C79.9
Hypoxia R09.02
Assessment / Plan
-
This is a 69-year-old female with extensive metastatic disease, to the spine, status post radiation treatment completion recently, on systemic therapy, who presents with hypoxia, bilateral pleural effusions, and bilateral lower extremity edema, with
progressive lower extremity weakness.
She has strong dorsi flexion, and plantarflexion strength, with weakness proximally in the extension, and hip flexion, which I suspect is likely multifactorial given bilateral lower extremity edema.
Cannot discount thoracic spinal cord edema however.
Would recommend TLSO bracing when patient is weightbearing/out of bed to maintain spinal alignment.
Additionally, recommend a course of high-dose steroids with 10 mg IV dexamethasone x 1, 6 mg every 6 hours for an additional 24 hours, and then can slowly taper down as tolerated.
Given patient's extensive metastatic disease, and that she just recently completed radiotherapy, would only offer surgical decompression if absolutely needed/indicated and that would be if she continues to demonstrate severe neurological decline in
motor strength without any other contributing cause. I did explain to the patient's , who is a nurse soup mixer, the risks of taking her to surgery as it pertains to Increased spinal instability postoperatively, as well as wound healing
issues, given recent completion of radiotherapy, also superimposed upon patient's current medical status and active medical comorbidities are very high.
Patient can go home per my specialty: No
[2025-02-27] MEDS: DECADRON 10 MG IV (12:30)
[2025-02-27 12:51] LABS: Vitamin D, 25-OH*** 88.5 ng/mL (30-80)
[2025-02-27 12:59] LABS: Osmolality Urine 318 mOsm/kg (300-900)
[2025-02-27] MEDS: NON-FORMULARY ITEM 90 MG PO (17:19)
[2025-02-27] MEDS: DECADRON 6 MG IV ×2 (17:21→23:27)
[2025-02-27] MEDS: CALCIUM GLUCONATE 280 MG IV (17:21)
[2025-02-27] MEDS: LOVENOX 40 MG SC (17:22)
--- NOTE | 2025-02-27 18:36 | CM ---
PT OT evals ordered .
Will need PT OT evals for dc planning .
PLAN : Need PT OT evals for dc planning
[2025-02-28] VITALS (7 sets, daily range): BP systolic 101–110; BP diastolic 67–80; BMI 25.5
[2025-02-28] MEDS: DECADRON 6 MG IV ×4 (05:12→23:58)
[2025-02-28 05:45] LABS: Ionized Calcium 1.07 mMOL/L (1.15-1.33)
[2025-02-28 05:55] LABS: % Basophils 0.3 % (0-2); % Immature Granulocytes 1.4 % (0-0.5); % Lymphocytes 7.7 % (20.5-51.1); % Monocytes 3.2 % (1.7-9.3); % Neutrophils 87.4 % (42.2-75.2); Absolute Immature Granulocytes 0.1 10^3/uL (0-0.05); Absolute Lymphocytes 0.8 10^3/uL (1.2-3.4); Absolute Monocytes 0.3 10^3/uL (0.1-0.6); Absolute Neutrophils 8.9 10^3/uL (1.4-6.5); Hemoglobin 9.3 g/dL (12.0-16.0); Mean Corp Hgb Conc. 33.2 g/dL (33.0-37.0); Mean Corpuscular Hgb 26.7 pg (27.0-31.0); Mean Corpuscular Volume 80.5 fL (81.0-99.0); Mean Platelet Volume 8.8 fL (7.4-10.4); Nucleated Red Blood Cells % 0 %; Platelet Count 375 10^3/uL (130-400); Red Blood Cell Count 3.48 10^6/uL (4.20-5.40); Red Cell Dist. Width 18.7 % (11.5-14.5); White Blood Cell Count 10.2 10^3/uL (4.8-10.8)
[2025-02-28 06:23] LABS: ALT (SGPT) 24 U/L (0-35); AST (SGOT) 46 U/L (14-36); Albumin 2.4 g/dl (3.5-5.0); Alkaline Phosphatase 313 U/L (38-126); Blood Urea Nitrogen 17 mg/dl (7-17); Calcium 7.7 mg/dl (8.4-10.2); Carbon Dioxide 29 mmol/L (22-30); Chloride 96 mmol/L (98-107); Estimated Creatinine Clearance 66 ml/min; Glucose 200 mg/dl (70-99); Potassium 4.5 mmol/L (3.5-5.1); Sodium 129 mmol/L (135-145); Total Bilirubin 0.4 mg/dl (0.2-1.3); Total Protein 4.8 g/dl (6.3-8.2); eGFR > 60.00
--- NOTE | 2025-02-28 06:24 | W.PN.ONC2 ---
Today's Communication / Plan
-
Cont PT and brigatinib.
Pain control. Bowel regimen.
Impression
Impression
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
On brigatinib therapy (started 02/23); s/p spinal radiation
weakness
back pain, DDD
Thoracic/lumbar MRI 02/26/25: Redemonstration of extensive osseous metastatic disease. Extraosseous malignant soft tissue in the spinal canal from T7 through T9 and retropulsion of the chronic pathologic compression fractures of T7 and T8 with
secondary severe spinal canal stenosis at T8 to moderate spinal canal stenosis at T7. No new pathologic compression fracture. Similar appearance of the thoracic spine and lumbar spine compared to previous MRI examinations from 01/14/2025 and
01/13/2025.
Plan
Plan
Continue outpatient brigatinib plan-- 90mg every evening through 03/01 (7 days total). Then on 03/02 increase dose to 180mg. Discussed with patient and , he is to bring home medication to hospital daily (informed him to leave supply for the
weekend).
Dec PET scan and January MRIs both with significant osseus metastatic disease of spine with slight extension into epidural space and vertebral body compression deformities--suspect chronic back pain is related to osseous metastasis/chronic compression
deformities. Progressive pain/weakness may be spinal cord compression given extraosseous malignancy within spinal canal T7-T9 and spinal canal stenosis. Will initiate IV dexamethasone and consult neurosurgery.
Steroids initiated. Appreciate N. Surg consultation. On MS-Contin + MSIR breakthrough and Decadron added.
Subjective/Objective
Chief Complaint
ACS Heme Onc
Subjective
Working with PT. Limited because of left arm immobilization and leg weakness. Balancing pain and constipation.
Vital Signs:
Vital Signs
Temp Pulse Resp BP Pulse Ox
97.9 F 116 18 109/80 90
02/28/25 04:27 02/28/25 04:02/28/25 04:27 02/28/25 04:27 02/28/25 04:27
Lab Results:
Laboratory Data
WBC 10.2 10^3/uL (4.8-10.8) 02/28/25 05:39
Hgb 9.3 g/dL (12.0-16.0) L 02/28/25 05:39
Plt Count 375 10^3/uL (130-400) 02/28/25 05:39
PT 13.4 Sec (11.4-14.6) 02/25/25 05:29
INR 0.99 02/25/25 05:29
APTT 29.8 Sec (23.4-35.0) 02/25/25 05:29
eGFR Cancelled 02/28/25 06:00
Physical Exam
HEENT: No Jaundice
Cardiology: S1 and S2
Pulmonary: Clear
[2025-02-28] MEDS: MS CONTIN (EXTENDED RELEASE) 15 MG PO ×2 (07:53→20:04)
[2025-02-28 08:46] LABS: Intact PTH 64.1 pg/ml (13.6-85.8)
[2025-02-28] MEDS: PROTONIX 40 MG PO (09:48)
[2025-02-28] MEDS: ZINC 50 MG PO (09:48)
[2025-02-28] MEDS: VITAMIN B-12 1000 MCG PO (09:50)
[2025-02-28] MEDS: VITAMIN C 500 MG PO (09:51)
[2025-02-28] MEDS: OSCAL CAL 500 1000 MG PO ×2 (09:56→20:04)
[2025-02-28] MEDS: THERAGRAN 1 TABLET PO (09:56)
--- NOTE | 2025-02-28 11:16 | W.PN.NEPH.PH ---
Today's Communication / Plan
-
Observe on IV Lasix and fluid restriction
Calcium repletion with p.o.
Needs repeated bladder scans to assure there is no postobstructive component and as needed straight cath
Assessment/Plan
-
Impression:
Hyponatremia
Hypocalcemia
Hypoxic respiratory failure on presentation with associated bilateral pleural effusion
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
Hypoalbuminemia/edema
Hypertension
Recent fall with subsequent left humerus fracture
Plan:
Hypocalcemia
- Repleted calcium IV and po
- Checked intact PTH (appropriately elevated in setting of hypocalcemia )and vitamin D levels (88.5)
- Possibly related to chemotherapy administration (brigatinib)
Hyponatremia
-Likely a function of malignancy, hypotension, nausea, and pain
- Obtained urine osmolality 318
- Fluid restriction at 1200 cc/day
- Suspect due to underlying hypervolemia given exam and chest x-ray finding
- Maintain diuresis lasix 20mg IV daily, if this does not prove efficacious we will also consider addition of tolvaptan as there could be a strong malignancy associated SIADH process
-
-
Date of Service: February 28, 2025
CC / HPI / ROS
-
Chief Complaint:
Hypocalcemia
Hyponatremia
History of Present Illness:
Low but Hemodynamically stable
Sodium up to 129
Calcium at 7.7
Review of Systems:
Nonoliguric but requiring straight catheterization
Short of breath on oxygen
Multiple pains
Labs
-
Labs:
WBC 10.2 10^3/uL (4.8-10.8) 02/28/25 05:39
RBC 3.48 10^6/uL (4.20-5.40) L 02/28/25 05:39
Hgb 9.3 g/dL (12.0-16.0) L 02/28/25 05:39
Hct 28.0 % (37.0-47.0) L 02/28/25 05:39
Plt Count 375 10^3/uL (130-400) 02/28/25 05:39
Sodium Cancelled 02/28/25 06:00
Potassium Cancelled 02/28/25 06:00
Chloride Cancelled 02/28/25 06:00
Carbon Dioxide Cancelled 02/28/25 06:00
BUN Cancelled 02/28/25 06:00
Creatinine Cancelled 02/28/25 06:00
eGFR Cancelled 02/28/25 06:00
Glucose Cancelled 02/28/25 06:00
Calcium Cancelled 02/28/25 06:00
Kgp-M-Ognsnsrhewg Pept 615 pg/ml 02/25/25 05:29
Albumin Cancelled 02/28/25 06:00
Physical Exam
-
Vital Signs:
Vital Signs
Temp Pulse Resp BP Pulse Ox
97.9 F 107 14 103/68 93
02/28/25 08:30 02/28/25 08:30 02/28/25 08:30 02/28/25 08:30 02/28/25 08:30
Cardiovascular:: Regular rate and rhythm
Respiratory:: Bilateral: Coarse
Lung Excursion:: Normal
Abdomen:: Nontender
Bowel Sounds:: Normal
Extremity Edema:: +1: Bilateral:
Cowan Catheter: No
[2025-02-28] MEDS: LASIX 20 MG IV (12:14)
[2025-02-28] MEDS: ZESTRIL 5 MG PO (12:15)
--- NOTE | 2025-02-28 13:40 | W.PN.HOSP.TC ---
Today's Communication/Plan
-
Continue IV diuresis
See plan
Assessment / Plan
Assessment / Plan
Physical Exam
General: No Apparent Distress
HEENT: Normocephalic and Moist mucous membranes
Respiratory: Decreased Breath Sounds
Cardiac: S1/S2 and Tachycardia
GI: Soft, Non Tender and Normal Bowel Sounds
Musculoskeletal: No Cyanosis, Edema, Left Lower Extremity and Edema, Right Lower Extremity
Skin: Warm and Dry
Neuro: Awake, Alert, AO x 3 and Other (Bilateral lower extremity strength 2/5. Sensation grossly intact in the bilateral lower extremities.)
Psych: Calm and Intact Judgment/Insight
Assessment/Plan
Acute Hypoxic Respiratory Failure
Small Bilateral Pleural Effusions
Moderate CHF on CT Chest -- concern for possible HFpEF exacerbation (b/c of hypoxia, good response to Lasix, lower extremity edema, and CHF on CT, although echo and proBNP not strongly suggestive of CHF)
Concern for Fluid Overload
Left upper lobe mass with spiculated margins measuring up to 2.8 cm in diameter, pulmonary malignancy versus less likely metastasis on CT Chest
-EMS found patient to be hypoxic with oxygen saturation of 50% on room air -- placed on 6 L in the ER with saturation 89%
-No PE on CT Chest, and recent 02/16/25 lower extremity US showed no DVT
-ProBNP indeterminated at 615
-Echo -- technically difficult given patient's left humerus fracture and need for splinting LUE (and patient does not want to move the LUE) -- but overall appears unremarkable
-Troponins insignificant. EKG noted.
-Concern for hypoxia from left upper lobe mass and possible CHF
-Continue oxygen supplementation to maintain oxygen saturations >90%
-Consulted oncology given patient's presentation and history as below
-Continue IV Lasix
Prolonged QTc
-Avoid/minimize QTc-prolonging medications
-Recheck EKG in the morning
Hyponatremia
-Suspected from malignancy, pain and hypervolemia
-PO Fluid Restriction 40 ounces daily started
-Neurology consult for consideration of Samsca, sodium is worsening
-Continue Lasix
Hypocalcemia
-Even when corrected on 02/26/25 for low albumin, calcium was low
-Replaced with 1 gram IV Calcium on 02/26/25, patient also has prolonged QTc, additional replacement ordered on 02/27/25
-Nephrology consulted given persistent hypocalcemia and hyponatremia
-PTH level appropriately elevated and Vitamin D elevated
-Hypocalcemia could be from chemo (brigatinib)
Increased bilateral lower extremity weakness
Increased leg swelling/edema recently
-Swelling can be from low albumin
-Lasix IV 20 mg daily helping with bilateral lower extremity swelling
-No DVT on recent bilateral lower extremity ultrasound
-Hem/onc consulted neurosurgery given spinal cord compression (edema at T7-8 levels), and they recommended: TLSO bracing when patient is weightbearing/out of bed to maintain spinal alignment, a course of high-dose
steroids with 10 mg IV dexamethasone x 1, 6 mg every 6 hours until tonight, and then can slowly taper down as tolerated
-Given patient's extensive metastatic disease, and that she just recently completed radiotherapy, neurosurgery will only offer surgical decompression if absolutely needed/indicated and that would be if she continues to
demonstrate severe neurological decline in motor strength without any other contributing cause. High risks with surgery at this time.
Recent January 2025 hospitalization for lower extremities weakness/tingling--likely due to metastatic spine disease
-It was previously noted that there was no cord compression on T spine, L spine MRI, or brain MRI--and steroids were started but steroids were stopped by oncology outpatient prior to this admission
-Now, neurosurgeon mentioned there is some cord edema at the T7-8 levels
Leukocytosis with immature granulocytes
-Suspected from malignant process
-Also had Temp 100.1 on 02/26-02/27
-Monitor for signs or symptoms of infection
Anemia of Chronic Disease
-It was noted that recent iron panel, B12, ferritin all without deficiency
Recent Fall with left humerus fracture
Pathologic fracture left coracoid process
Nondisplaced fracture lateral left ninth rib
Thoracic spine compression deformities of indeterminate acuity
-On splint, has been seeing [facility] physician Dr. Finn Desai
High ALP
-Likely related to bone metastases
History of metastatic cancer
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
Diffuse osseous metastatic disease
-Patient sees oncologist Dr. Ritter outpatient
-Oncology consulted
-Continue outpatient brigatinib - 90mg every evening through 03/01 (7 days total). Then on 03/02 increase dose to 180mg. Dr. Dai discussed with patient and , he is to bring home medication to hospital daily
Pain
-Continue bowel regimen
Essential Hypertension
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
Hypertension
DVT Prophylaxis: Lovenox
Code Status: Full Code
Anticipated Discharge: > 48 hours
Subjective/Interval History
-
Date of Service: February 28, 2025
Patient was seen and examined. No new complaints, still with pain.
Objective Data
-
Labs:
Laboratory Results
02/28/25
05:39
WBC 10.2
Hgb 9.3 L
Hct 28.0 L
Plt Count 375
Sodium 129 L
Potassium 4.5
Chloride 96 L
Carbon Dioxide 29
BUN 17
Creatinine 0.4 L
Glucose 200 H
Calcium 7.7 L
Total Bilirubin 0.4
AST 46 H
ALT 24
Alkaline Phosphatase 313 H
Vital Signs:
Vital Signs
Temp Pulse Resp BP Pulse Ox
97.7 F 108 16 109/71 94
02/28/25 11:22 02/28/25 12:14 02/28/25 11:22 02/28/25 12:14 02/28/25 11:22
I&O
02/27/25 02/28/25 03/01/25
06:59 06:59 06:59
Intake Total 480 / 480 480 / 480
Output Total 1200 / 1200 2200 / 2200
Balance -720 / -720 -1720 / -1720
[2025-02-28] MEDS: MORPHINE SULFATE 30 MG PO ×2 (16:40→23:48)
[2025-02-28] MEDS: LOVENOX 40 MG SC (17:44)
[2025-02-28] MEDS: NON-FORMULARY ITEM 90 MG PO (17:48)
[2025-03-01 03:00] VITALS: BP 118/76
[2025-03-01] MEDS: MORPHINE SULFATE 30 MG PO ×3 (03:51→23:32)
[2025-03-01] MEDS: DECADRON 6 MG IV ×3 (05:43→20:40)
[2025-03-01 06:00] VITALS: BMI 23.5
[2025-03-01 07:16] LABS: ALT (SGPT) 35 U/L (0-35); AST (SGOT) 49 U/L (14-36); Albumin 2.6 g/dl (3.5-5.0); Alkaline Phosphatase 281 U/L (38-126); Blood Urea Nitrogen 18 mg/dl (7-17); Calcium 7.7 mg/dl (8.4-10.2); Carbon Dioxide 30 mmol/L (22-30); Chloride 94 mmol/L (98-107); Estimated Creatinine Clearance 66 ml/min; Glucose 170 mg/dl (70-99); Potassium 4.8 mmol/L (3.5-5.1); Sodium 129 mmol/L (135-145); Total Bilirubin 0.4 mg/dl (0.2-1.3); eGFR > 60.00
[2025-03-01 07:40] VITALS: BP 116/80
[2025-03-01] MEDS: MS CONTIN (EXTENDED RELEASE) 15 MG PO ×2 (07:41→20:39)
[2025-03-01] MEDS: OSCAL CAL 500 1000 MG PO ×2 (09:04→20:39)
[2025-03-01] MEDS: PROTONIX 40 MG PO (09:04)
[2025-03-01] MEDS: THERAGRAN 1 TABLET PO (09:05)
[2025-03-01] MEDS: ZESTRIL 5 MG PO (09:05)
[2025-03-01] MEDS: VITAMIN C 500 MG PO (09:05)
[2025-03-01] MEDS: ZINC 50 MG PO (09:05)
[2025-03-01] MEDS: VITAMIN B-12 1000 MCG PO (09:05)
[2025-03-01] MEDS: LASIX 20 MG IV (09:06)
[2025-03-01] MEDS: FLUSH (NSS) 2 FLUSH IV ×2 (09:06→13:10)
[2025-03-01 11:25] VITALS: BP 120/76
--- NOTE | 2025-03-01 11:33 | W.PN.NEPH.PH ---
Today's Communication / Plan
-
Maintain oral calcium carbonate
Maintain 20 mg IV Lasix and fluid restriction
Follow-up BMP
Assessment/Plan
-
Impression:
Hyponatremia
Hypocalcemia
Hypoxic respiratory failure on presentation with associated bilateral pleural effusion
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
Hypoalbuminemia/edema
Hypertension
Recent fall with subsequent left humerus fracture
Plan:
Hypocalcemia
- stable at 7.7, maintain po calcium bicarbonate 1g BID
- Checked intact PTH (appropriately elevated in setting of hypocalcemia )and vitamin D levels (88.5)
- Possibly related to chemotherapy administration (brigatinib)
Hyponatremia
-stable at 129
-Likely a function of malignancy, hypotension, nausea, and pain
- Obtained urine osmolality 318
- Fluid restriction at 1200 cc/day
- Suspect due to underlying hypervolemia given exam and chest x-ray finding
- Maintain diuresis lasix 20mg IV daily, if this does not prove efficacious we will also consider addition of tolvaptan as there could be a strong malignancy associated SIADH process,weights down
-
-
Date of Service: March 01, 2025
CC / HPI / ROS
-
Chief Complaint:
Hypocalcemia
Hyponatremia
History of Present Illness:
Low but Hemodynamically stable
Sodium up to 129
Calcium at 7.7
Review of Systems:
Nonoliguric but requiring straight catheterization
Short of breath on oxygen
Multiple pains : significant left shoulder
Labs
-
Labs:
Sodium 129 mmol/L (135-145) L 03/01/25 05:48
Potassium 4.8 mmol/L (3.5-5.1) 03/01/25 05:48
Chloride 94 mmol/L (98-107) L 03/01/25 05:48
Carbon Dioxide 30 mmol/L (22-30) 03/01/25 05:48
BUN 18 mg/dl (7-17) H 03/01/25 05:48
Creatinine 0.4 mg/dL (0.6-1.0) L 03/01/25 05:48
eGFR > 60.00 03/01/25 05:48
Glucose 170 mg/dl (70-99) H 03/01/25 05:48
Calcium 7.7 mg/dl (8.4-10.2) L 03/01/25 05:48
Bie-H-Towbgumbxel Pept 615 pg/ml 02/25/25 05:29
Albumin 2.6 g/dl (3.5-5.0) L 03/01/25 05:48
Physical Exam
-
Vital Signs:
Vital Signs
Temp Pulse Resp BP Pulse Ox
97.9 F 84 18 116/80 4
03/01/25 07:40 03/01/25 09:05 03/01/25 07:40 03/01/25 09:05 03/01/25 11:14
Cardiovascular:: Regular rate and rhythm
Respiratory:: Bilateral: Coarse
Lung Excursion:: Normal
Abdomen:: Nontender
Bowel Sounds:: Normal
Extremity Edema:: +1: Bilateral:
Cowan Catheter: No
[2025-03-01 13:07] LABS: % Basophils 0.1 % (0-2); % Immature Granulocytes 1.1 % (0-0.5); % Lymphocytes 7.3 % (20.5-51.1); % Monocytes 3.4 % (1.7-9.3); % Neutrophils 88.1 % (42.2-75.2); Absolute Immature Granulocytes 0.1 10^3/uL (0-0.05); Absolute Lymphocytes 0.9 10^3/uL (1.2-3.4); Absolute Monocytes 0.4 10^3/uL (0.1-0.6); Absolute Neutrophils 10.8 10^3/uL (1.4-6.5); Hematocrit 29.4 % (37.0-47.0); Hemoglobin 9.5 g/dL (12.0-16.0); Mean Corp Hgb Conc. 32.3 g/dL (33.0-37.0); Mean Corpuscular Hgb 26.5 pg (27.0-31.0); Mean Corpuscular Volume 81.9 fL (81.0-99.0); Mean Platelet Volume 10.4 fL (7.4-10.4); Nucleated Red Blood Cells % 0 %; Platelet Count 480 10^3/uL (130-400); Red Blood Cell Count 3.59 10^6/uL (4.20-5.40); Red Cell Dist. Width 18.6 % (11.5-14.5); White Blood Cell Count 12.2 10^3/uL (4.8-10.8)
--- NOTE | 2025-03-01 13:43 | CM ---
Addendum entered by Kellen Parker 03/01/25 15:06:
Met with patient and ; SNF preferences identified; referrals sent to [facility], and [facility]
Original Note:
Chart Reviewed: anticipated DC > 48 hours
CM met with patient at bedside; discussed PT recommendation for SNF; patient agreeable; provided list of site options to consider for referrals
CM will follow up; [facility]
Plan: [facility] to [facility]F when medically stable pending bed availability
--- NOTE | 2025-03-01 15:06 | W.PN.PUL3 ---
Today's Communication / Plan
-
- Follow-up chest x-ray in a.m., continue diuresis
Assessment
-
Patient is a 69-year-old female with history of left hip replacement for left hip avascular necrosis, recent left humerus fracture (is in splint and [facility] Dr. Finn Desai outpatient), metastatic cancer of unknown origin, and
hypertension who presented with increased generalized weakness for last few weeks to months, lower extremity swelling and hypoxia. Upon arrival, EMS stated that they found patient with a oxygen room air saturation of 50%. She was placed on 6 L nasal
cannula in EMS/in the ER and saturated 89%. CT showing CHF signs, we are consulted for evaluation.
Acute hypoxic respiratory failure
Small Bilateral Pleural Effusions/Moderate CHF on CT Chest
Left upper lobe mass with spiculated margins measuring up to 2.8 cm, known primary lung NSCLC
Generalized weakness
LE Swelling
Subacute left humerus fracture (is in splint and [facility] Dr. Finn Desai outpatient)
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
Metastatic disease of unknown origin, known to [place]
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
Status post flex sigmoidoscopy with no lesion noted in the rectosigmoid junction
Known pulmonary nodule, JOHN measuring 1.5cm on PET
ALK mutation typical for non-small cell lung cancer, completed palliative radiation therapy 01/30/2025 to areas of painful bone disease
HTN
Left Hip Avascular Necrosis s/p Left Hip Replacement
Left bundle branch block (LBBB)
Chest pain syndrome
Family history of early CAD
Plan
#1. Acute hypoxic respiratory failure related with pulmonary edema and bilateral pleural effusions.
- Continued improvement with IV Lasix
- On exam patient still has bilateral pedal edema, few inspiratory Rales noted bilaterally posteriorly
- Continue IV Lasix as ordered, follow-up chest x-ray in a.m.
Hypoxemia noted on arrival, O2 jared 50s reportedly, now on NC
She is not known to be on home O2 in the past
Home O2 evaluation eventually, has difficulty ambulating
Prior history of lung disease is NOT noted --she has nodule noted on CT
She is well known to [facility]. Had been undergoing w/u for her diffuse met disease felt to be due to primary lung NSCLC based on ALK testing, she has a known JOHN nodule, previously 1.5cm now 1.6 with margins of 2.8cm with corresponding
lymphadenopathy.
It was never planned for outpatient biopsy of her lung nodule as this was presumed based on genetic testing. She has not previously seen outpatient pulmonary in the past. She denies any prior history of lung disease.
Onc consult placed, we will follow up recs
CT chest obtained indicating pulmonary edema with effusions. She was given 1 dose of Lasix with output of 1 L and improvement of her lower extremity edema.
The size of her effusions are likely too small for thoracentesis but if enlarging, can plan for diag tap
Suspect patient has acute CHF exacerbation given CT, LE edema, response to lasix
Would be reasonable to continue small daily doses and evaluate weights/CXR response/O2 weaning
PET CT reviewed as OP as well, she has associated LNS in med/hilum
Repeat CXR 02/27 still with bilateral CHF, continue IV lasix
Bladder scan today and place [facility] if needed for IOs
Prior ECHO results are reviewed indicating preserved function
Repeat study showing stable findings, preserved EF
Patient had a left humerus fracture from a fall 5 days ago for which she saw outpatient orthopedics and told to keep her arm in a splint until outpatient follow-up.
Patient is requesting second opinion from [facility], consult to be placed by care team
Generalized weakness a prevailing issue
Will need PT/OT evals, consideration for PM&R as well
Neurosx eval now for LE weakness not improving
MRI with extensive spinal disease
Will need outpatient pulmonary evaluation in our office for PFTs and 6MWT
Reviewed with patient
Extensive discussion with patient's and daughter at bedside ( is a JIG INSPECTOR)
Diagnostic Data
Chest X-Ray: 01/16/25- Left-sided port with tip within the SVC. No evidence for significant pneumothorax.
CT Scan: CHEST 02/25/25- 1. No pulmonary embolism identified.
2. Moderate CHF with small bilateral pleural effusions.
3. Left upper lobe mass with spiculated margins measuring up to 2.8 cm in diameter, pulmonary malignancy versus less likely metastasis.
4. Diffuse osseous metastatic disease. Fracture proximal left humerus, presumably pathologic. Pathologic fracture left coracoid process. Nondisplaced fracture lateral left ninth rib. Thoracic spine compression deformities of indeterminate acuity.
PET 01/01/25- hypermetabolic 1.5 x 1.4 cm nodule within the anterior left upper lobe; multiple hypermetabolic lymph nodes within the superior mediastinum/left hilum consistent with malignant nodes. Additionally there is a right supraclavicular
hypermetabolic lymph node, likely an additional malignant lymph node.
Mild hypermetabolic activity in the region of the rectosigmoid junction which demonstrates a max SUV of 4.9; hypermetabolic lesion within the anterior right hepatic lobe which likely represents a hepatic metastasis; extensive osseous hypermetabolic
metastasis throughout the axial and proximal appendicular skeleton. There are additional nonhypermetabolic sclerotic foci which likely represent additional sclerotic osseous metastasis.
Echo: 02/26/25- Normal LV size with low normal systolic function and no obvious wall motion abnormality. LVEF is 50-55% by visual estimation. Normal appearing right ventricular size and function.
Limited valvular interrogation, however, no significant valvular disease. Estimated pulmonary artery pressure of 25 mmHg, assuming a right atrial pressure of 3 mmHg. Compared to prior from August 10, 2021, no obvious change.
08/10/21- Normal left ventricular systolic function. Left ventricular ejection fraction is 50-55%. No significant valvular disease. No significant change since the prior study of 2018.
PFT's:
Reports and relevant images were personally reviewed.
Total time spent on this consultation __47__ minutes which includes review of history, physical exam, medications, laboratory data, personal review of imaging, extensive review of outpatient records, discussion with care team and respiratory therapy.
Subjective Data
-
Date of Service:
Date of Service: March 01, 2025
Chief Complaint: Pulmonary Follow Up
Subjective:
Patient comfortably lying in bed, in no acute distress. Reports that her breathing is overall improving.
Review of Systems
Genitourinary: Other (All 14 systems reviewed and negative except as stated above in the history of present illness.)
Objective Data
Data Reviewed
Vital Signs / I&O / Oxygen:
Vital Signs
Temp Pulse Resp BP Pulse Ox
97.9 F 108 18 120/76 94
03/01/25 11:25 03/01/25 11:25 03/01/25 11:25 03/01/25 11:25 03/01/25 11:25
Intake and Output
02/28/25 03/01/25 03/02/25
06:59 06:59 06:59
Intake Total 480 / 480 1080 / 1080
Output Total 2200 / 2200 1200 / 1200
Balance -1720 / -1720 -120 / -120
SaO2 94
Nasal Cannula flow liters per 3
minute
Physical Exam
General: Comfortable
HEENT: Normocephalic and Moist Mucous Membranes
Cardiovascular: S1-S2, Regular Rhythm and Peripheral Edema (Reportedly improving.)
Respiratory: Crackles (Bibasilar) and Non-Labored Respirations
GI: Soft, Non Distended and Non Tender
Neurology: Awake, Alert and Oriented
Skin: Warm and Dry
Labs/Micro/Reports
Lab Data
03/01/25 05:48
03/01/25 05:48
[2025-03-01 15:35] VITALS: BP 100/67
--- NOTE | 2025-03-01 16:02 | W.PN.HOSP.TC ---
Today's Communication/Plan
-
Continue IV Lasix
Oxygen requirements improving
Decrease Dexamethasone frequency
SNF placement pending
Assessment / Plan
Assessment / Plan
Physical Exam
General: No Apparent Distress
HEENT: Normocephalic and Moist mucous membranes
Respiratory: Decreased Breath Sounds
Cardiac: S1/S2 and Tachycardia
GI: Soft, Non Tender and Normal Bowel Sounds
Musculoskeletal: No Cyanosis, Edema, Left Lower Extremity and Edema, Right Lower Extremity
Skin: Warm and Dry
Neuro: Awake, Alert, AO x 3 and Other (Bilateral lower extremity strength 2/5. Sensation grossly intact in the bilateral lower extremities.)
Psych: Calm and Intact Judgment/Insight
Assessment/Plan
Acute Hypoxic Respiratory Failure
Small Bilateral Pleural Effusions
Moderate CHF on CT Chest -- concern for possible HFpEF exacerbation (b/c of hypoxia, good response to Lasix, lower extremity edema, and CHF on CT, although echo and proBNP not strongly suggestive of CHF)
Concern for Fluid Overload
Left upper lobe mass with spiculated margins measuring up to 2.8 cm in diameter, pulmonary malignancy versus less likely metastasis on CT Chest
-EMS found patient to be hypoxic with oxygen saturation of 50% on room air -- placed on 6 L in the ER with saturation 89%
-No PE on CT Chest, and recent 02/16/25 lower extremity US showed no DVT
-ProBNP indeterminate at 615
-Echo -- technically difficult given patient's left humerus fracture and need for splinting LUE (and patient does not want to move the LUE) -- but overall appears unremarkable
-Troponins insignificant. EKG noted.
-Concern for hypoxia from left upper lobe mass and possible CHF
-Continue oxygen supplementation to maintain oxygen saturations >90%
-Consulted oncology given patient's presentation and history as below
-Continue IV Lasix -- patient's O2 improved from 6 L to 3 L NC on 03/01/25
Prolonged QTc
-Suspected at least partly from hypocalcemia
-Avoid/minimize QTc-prolonging medications
Hyponatremia
-Suspected from malignancy, pain and hypervolemia
-PO Fluid Restriction 40 ounces daily
-Neurology consult for consideration of Samsca, sodium is worsening
-Continue Lasix IV 20 mg daily
Hypocalcemia
-Even when corrected on 02/26/25 for low albumin, calcium was low
-Replaced with 1 gram IV Calcium on 02/26/25, patient also has prolonged QTc, additional replacement ordered on 02/27/25
-Continue PO Calcium Bicarbonate 1g BID
-Nephrology consulted given persistent hypocalcemia and hyponatremia despite Lasix, FR, and IV calcium supplementation
-PTH level appropriately elevated and Vitamin D elevated
-Hypocalcemia could be from chemo (brigatinib)
Increased bilateral lower extremity weakness
Increased leg swelling/edema recently - IMPROVING
-Lasix IV 20 mg daily helping with bilateral lower extremity swelling
-No DVT on recent bilateral lower extremity ultrasound
-Hem/onc consulted neurosurgery given spinal cord compression (edema at T7-8 levels), and they recommended: TLSO bracing when patient is weightbearing/out of bed to maintain spinal alignment, a course of high-dose
steroids with 10 mg IV dexamethasone x 1, 6 mg every 6 hours until tonight, and then can slowly taper down as tolerated
-Reduce Dexamethasone dosing from 6 mg IV Q6H to Q8H and monitor patient's response
-Given patient's extensive metastatic disease, and that she just recently completed radiotherapy, neurosurgery will only offer surgical decompression if absolutely needed/indicated and that would be if she continues to
demonstrate severe neurological decline in motor strength without any other contributing cause. High risks with surgery at this time.
Recent January 2025 hospitalization for lower extremities weakness/tingling--likely due to metastatic spine disease
-It was previously noted that there was no cord compression on T spine, L spine MRI, or brain MRI--and steroids were started but steroids were stopped by oncology outpatient prior to this admission
-Now, neurosurgeon mentioned there is some cord edema at the T7-8 levels
Leukocytosis with immature granulocytes
-Suspected from malignant process
-Also had Temp 100.1 on 02/26-02/27 -- temperatures unremarkable since then
-Currently, no concerns for infection
-Monitor for signs or symptoms of infection
Anemia of Chronic Disease
-It was noted that recent iron panel, B12, ferritin all without deficiency
Recent Fall with left humerus fracture
Pathologic fracture left coracoid process
Nondisplaced fracture lateral left ninth rib
Thoracic spine compression deformities of indeterminate acuity
-On splint, has been seeing [facility] physician Dr. Finn Desai
-I spoke to on-call [facility] orthopedics per the request of patient and her family regarding this, per [facility] on-call physician, patient will need to continue splint and follow-up with Dr. Chris Kunz outpatient
High ALP
-Likely related to bone metastases
History of metastatic cancer
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
Diffuse osseous metastatic disease
-Patient sees oncologist Dr. Ritter outpatient
-Oncology consulted
-Continue outpatient brigatinib - 90mg every evening through 03/01 (7 days total). Then on 03/02 increase dose to 180mg. Dr. Dai discussed with patient and , he is to bring home medication to hospital daily
Pain
-Continue home Morphine scheduled and prn regimen
-Continue Dexamethasone as above
-Continue bowel regimen -- currently ordered as prn
Essential Hypertension
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
DVT Prophylaxis: Lovenox
Code Status: Full Code
I have been speaking with patient's inside patient's room on an almost daily basis.
Anticipated Discharge: 24 - 48 hours
Subjective/Interval History
-
Date of Service: March 01, 2025
Patient was seen and examined. She is still with pain especially with the left shoulder fracture, denied any other significant new symptoms or complaints.
Objective Data
-
Labs:
Laboratory Results
03/01/25
05:48
WBC 12.2 H
Hgb 9.5 L
Hct 29.4 L
Plt Count 480 H D
Sodium 129 L
Potassium 4.8
Chloride 94 L
Carbon Dioxide 30
BUN 18 H
Creatinine 0.4 L
Glucose 170 H
Calcium 7.7 L
Total Bilirubin 0.4
AST 49 H
ALT 35
Alkaline Phosphatase 281 H
Vital Signs:
Vital Signs
Temp Pulse Resp BP Pulse Ox
97.8 F 108 16 100/67 95
03/01/25 15:35 03/01/25 15:35 03/01/25 15:35 03/01/25 15:35 03/01/25 15:35
I&O
02/28/25 03/01/25 03/02/25
06:59 06:59 06:59
Intake Total 480 / 480 1080 / 1080
Output Total 2200 / 2200 1200 / 1200
Balance -1720 / -1720 -120 / -120
[2025-03-01] MEDS: LOVENOX 40 MG SC (18:11)
[2025-03-01] MEDS: NON-FORMULARY ITEM 90 MG PO (18:14)
[2025-03-01 19:00] VITALS: BP 105/73
[2025-03-01 23:08] VITALS: BP 109/70
[2025-03-01] MEDS: MIRALAX 17 GRAMS PO (23:32)
[2025-03-02] VITALS (7 sets, daily range): BP systolic 97–127; BP diastolic 66–85; PULSE 102–106; O2SAT 96; BMI 23.5
[2025-03-02] MEDS: DECADRON 6 MG IV ×3 (05:17→21:07)
[2025-03-02 05:59] LABS: % Basophils 0.1 % (0-2); % Immature Granulocytes 0.9 % (0-0.5); % Lymphocytes 6.5 % (20.5-51.1); % Monocytes 4.6 % (1.7-9.3); % Neutrophils 87.9 % (42.2-75.2); Absolute Immature Granulocytes 0.1 10^3/uL (0-0.05); Absolute Lymphocytes 0.7 10^3/uL (1.2-3.4); Absolute Monocytes 0.5 10^3/uL (0.1-0.6); Absolute Neutrophils 9.3 10^3/uL (1.4-6.5); Hematocrit 27.4 % (37.0-47.0); Hemoglobin 8.8 g/dL (12.0-16.0); Mean Corp Hgb Conc. 32.1 g/dL (33.0-37.0); Mean Corpuscular Hgb 26.3 pg (27.0-31.0); Mean Platelet Volume 9.6 fL (7.4-10.4); Nucleated Red Blood Cells % 0 %; Platelet Count 423 10^3/uL (130-400); Red Blood Cell Count 3.34 10^6/uL (4.20-5.40); Red Cell Dist. Width 18.6 % (11.5-14.5); White Blood Cell Count 10.5 10^3/uL (4.8-10.8)
[2025-03-02 06:22] LABS: Albumin 2.3 g/dl (3.5-5.0); Blood Urea Nitrogen 19 mg/dl (7-17); Calcium 7.5 mg/dl (8.4-10.2); Carbon Dioxide 34 mmol/L (22-30); Chloride 95 mmol/L (98-107); Estimated Creatinine Clearance 66 ml/min; Glucose 201 mg/dl (70-99); Potassium 4.6 mmol/L (3.5-5.1); Sodium 132 mmol/L (135-145); eGFR > 60.00
--- NOTE | 2025-03-02 08:26 | W.PN.PUL3 ---
Today's Communication / Plan
-
Continue diuresis
would like orthopedics to see her inpatient
PT/OT - rec'd skilled rehab
pain control
Wean down supplemental O2 as tolerated while keeping SpO2 >90-94%
Ambulatory pulse oximetry prior to discharge
Pulmonary service will continue to follow
Assessment
-
Patient is a 69-year-old female with history of left hip replacement for left hip avascular necrosis, recent left humerus fracture (is in splint and [facility] Dr. Finn Desai outpatient), metastatic cancer of unknown origin, and
hypertension who presented with increased generalized weakness for last few weeks to months, lower extremity swelling and hypoxia. Upon arrival, EMS stated that they found patient with a oxygen room air saturation of 50%. She was placed on 6 L nasal
cannula in EMS/in the ER and saturated 89%. CT showing CHF signs, we are consulted for evaluation.
Acute hypoxic respiratory failure
Small Bilateral Pleural Effusions/Moderate CHF on CT Chest
Left upper lobe mass with spiculated margins measuring up to 2.[address] Chest from 02/25/2025, known primary lung NSCLC
Generalized weakness
LE Swelling
Subacute left humerus fracture (is in splint and [facility] Dr. Finn Desai outpatient)
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
Metastatic disease of unknown origin, known to [place]
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
Status post flex sigmoidoscopy with no lesion noted in the rectosigmoid junction
Known pulmonary nodule, JOHN measuring 1.5cm on PET
ALK mutation typical for non-small cell lung cancer, completed palliative radiation therapy 01/30/2025 to areas of painful bone disease
HTN
Left Hip Avascular Necrosis s/p Left Hip Replacement
Left bundle branch block (LBBB)
Chest pain syndrome
Family history of early CAD
Plan
#1. Acute hypoxic respiratory failure related with pulmonary edema and bilateral pleural effusions.
- Continued improvement with IV Lasix
- Continue IV Lasix 20mg daily
- Continue supplemental O2 and wean as tolerated to keep SpO2 >90-94%
- She will need an ambulatory pulse ox prior to discharge
- PT/OT
Hypoxemia noted on arrival, O2 jared 50s reportedly, now on NC
She is not known to be on home O2 in the past
Prior history of lung disease is NOT noted --she has nodule noted on CT
She is well known to [facility]. Had been undergoing w/u for her diffuse met disease felt to be due to primary lung NSCLC based on ALK testing, she has a known JOHN nodule, previously 1.5cm now 1.6 with margins of 2.8cm with corresponding
lymphadenopathy.
It was never planned for outpatient biopsy of her lung nodule as this was presumed based on genetic testing. She has not previously seen outpatient pulmonary in the past. She denies any prior history of lung disease.
Oncology following - recs appreciated
Continue Brigatinib
CT chest obtained indicating pulmonary edema with effusions. She was given 1 dose of Lasix with output of 1 L and improvement of her lower extremity edema.
The size of her effusions are likely too small for thoracentesis but if enlarging, can plan for diag tap
Suspect patient has acute CHF exacerbation given CT, LE edema, response to lasix
Would be reasonable to continue small daily doses and evaluate weights/CXR response/O2 weaning
PET CT reviewed as OP as well, she has associated LNS in med/hilum
Repeat CXR 02/27 still with bilateral CHF, continue IV lasix
Prior ECHO results are reviewed indicating preserved function
Repeat study showing stable findings, preserved EF
She also has a low serum albumin which is going to contribute to her LE edema
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
Patient is requesting second opinion from [facility] - defer consult to hospitalist team
Generalized weakness a prevailing issue
Will need PT/OT evals, consideration for PM&R as well
Neurosx eval now for LE weakness not improving
MRI with extensive spinal disease --> continue Decadron
Will need outpatient pulmonary evaluation in our office for PFTs and 6MWT
Reviewed with patient
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
Pulmonary service will continue to follow along
Diagnostic Data
Chest X-Ray: 01/16/25- Left-sided port with tip within the SVC. No evidence for significant pneumothorax.
CT Scan: CHEST 02/25/25- 1. No pulmonary embolism identified.
2. Moderate CHF with small bilateral pleural effusions.
3. Left upper lobe mass with spiculated margins measuring up to 2.8 cm in diameter, pulmonary malignancy versus less likely metastasis.
4. Diffuse osseous metastatic disease. Fracture proximal left humerus, presumably pathologic. Pathologic fracture left coracoid process. Nondisplaced fracture lateral left ninth rib. Thoracic spine compression deformities of indeterminate acuity.
PET 01/01/25- hypermetabolic 1.5 x 1.4 cm nodule within the anterior left upper lobe; multiple hypermetabolic lymph nodes within the superior mediastinum/left hilum consistent with malignant nodes. Additionally there is a right supraclavicular
hypermetabolic lymph node, likely an additional malignant lymph node.
Mild hypermetabolic activity in the region of the rectosigmoid junction which demonstrates a max SUV of 4.9; hypermetabolic lesion within the anterior right hepatic lobe which likely represents a hepatic metastasis; extensive osseous hypermetabolic
metastasis throughout the axial and proximal appendicular skeleton. There are additional nonhypermetabolic sclerotic foci which likely represent additional sclerotic osseous metastasis.
Echo: 02/26/25- Normal LV size with low normal systolic function and no obvious wall motion abnormality. LVEF is 50-55% by visual estimation. Normal appearing right ventricular size and function.
Limited valvular interrogation, however, no significant valvular disease. Estimated pulmonary artery pressure of 25 mmHg, assuming a right atrial pressure of 3 mmHg. Compared to prior from August 10, 2021, no obvious change.
08/10/21- Normal left ventricular systolic function. Left ventricular ejection fraction is 50-55%. No significant valvular disease. No significant change since the prior study of 2018.
PFT's:
Reports and relevant images were personally reviewed.
Total time spent today was 38 minutes for this encounter. Time includes reviewing laboratory test/imaging results, reviewing pertinent medical records, obtaining and reviewing medical history, performing an appropriate exam, ordering medications,
tests and procedures. Time also includes documentation of this encounter, coordinating patient care and communicating with other healthcare professionals. Total time does not include separately billed tests performed on this date of service.
Subjective Data
-
Date of Service:
Date of Service: March 02, 2025
Chief Complaint: Pulmonary Follow Up
Subjective:
Patient was seen and evaluated today at bedside. Patient's , Jamar, at bedside and all questions were answered. Patient is sitting in the chair and says that she feels much better compared to laying in bed. Currently on 3 L/min nasal
cannula breathing comfortably. She denies chest pain, BRAN, abdominal pain, nausea, fevers or chills.
Review of Systems
General: Other (Negative unless mentioned above)
Objective Data
Data Reviewed
Vital Signs / I&O / Oxygen:
Vital Signs
Temp Pulse Resp BP Pulse Ox
97.8 F 101 14 122/81 97
03/02/25 07:40 03/02/25 07:40 03/02/25 07:40 03/02/25 07:40 03/02/25 07:40
Intake and Output
03/01/25 03/02/25 03/03/25
06:59 06:59 06:59
Intake Total 1080 / 1080 1080 / 1080
Output Total 1200 / 1200 900 / 900
Balance -120 / -120 180 / 180
SaO2 97
Nasal Cannula flow liters per 3
minute
Physical Exam
General: Respiratory Distress (negative) and Comfortable
HEENT: Normocephalic and Moist Mucous Membranes
Cardiovascular: S1-S2, Regular Rhythm and Peripheral Edema (Trace lower extremity edema bilaterally)
Respiratory: Wheeze (negative), Crackles (Bibasilar), Rhonchi (negative), Non-Labored Respirations and Stridor (negative)
GI: Soft, Non Distended, Non Tender and Normal Bowel Sounds
Neurology: AO x 3 and Tremors (negative)
Skin: Warm, Dry, Cyanosis (negative) and Jaundice (negative)
Labs/Micro/Reports
Lab Data
03/02/25 05:06
03/02/25 05:06
[2025-03-02] MEDS: OSCAL CAL 500 1000 MG PO ×2 (08:27→21:05)
[2025-03-02] MEDS: PROTONIX 40 MG PO (08:27)
[2025-03-02] MEDS: VITAMIN B-12 1000 MCG PO (08:27)
[2025-03-02] MEDS: LASIX 20 MG IV (08:27)
[2025-03-02] MEDS: THERAGRAN 1 TABLET PO (08:27)
[2025-03-02] MEDS: MS CONTIN (EXTENDED RELEASE) 15 MG PO ×2 (08:27→21:05)
[2025-03-02] MEDS: ZESTRIL 5 MG PO (08:28)
[2025-03-02] MEDS: VITAMIN C 500 MG PO (08:28)
[2025-03-02] MEDS: ZINC 50 MG PO (08:29)
--- NOTE | 2025-03-02 09:16 | W.PN.ONC ---
Today's Communication / Plan
-
Increase brigatinib dose to 180mg daily.
Impression
Impression
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
On brigatinib therapy (started 02/23); s/p spinal radiation
weakness, back pain
anxiety
Thoracic/lumbar MRI 02/26/25: Redemonstration of extensive osseous metastatic disease. Extraosseous malignant soft tissue in the spinal canal from T7 through T9 and retropulsion of the chronic pathologic compression fractures of T7 and T8 with
secondary severe spinal canal stenosis at T8 to moderate spinal canal stenosis at T7. No new pathologic compression fracture. Similar appearance of the thoracic spine and lumbar spine compared to previous MRI examinations from 01/14/2025 and
01/13/2025.
Dec PET scan and January MRIs both with significant osseus metastatic disease of spine with slight extension into epidural space and vertebral body compression deformities--suspect chronic back pain is related to osseous metastasis/chronic compression
deformities. Progressive pain/weakness may be spinal cord compression given extraosseous malignancy within spinal canal T7-T9 and spinal canal stenosis.
Plan
Plan
Continue outpatient brigatinib, increase dose to 180mg today (s/p 7days of 90mg). Discussed with patient and at bedside.
Regarding humerus fracture, previously reviewed with patient/ recommendation to follow up with Dr Chris Kunz as an outpatient-- He is the specialist at [facility] who does metastatic tumor surgery but does not do such surgeries at [facility].
Continue steroids per neurosurgery, PT/OT, back brace when ambulatory.
Adequate pain control. Bowel regimen.
Incentive spirometer.
Monitor mood/reassess SI regularly.
Subjective/Objective
Subjective/Objective
Reports some improvement in leg strength though has not ambulated yet. Back pain well controlled, still reporting L arm pain. Has sensation/control of bladder (with exception of some incontinence when repositioning for bedpan). Reports constipation
x5d, fatigue. Reports anxiety and feeling overwhelmed-- passive fleeting thought about yesterday; denies active SI/HI or plan. 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
General: Sitting up in bed. No acute distress. Appears overall comfortable. Requiring assistance eating breakfast.
Lungs: Nonlabored breathing. Able to talk in full sentences. Supplemental oxygen via nasal canula.
GI: Abdomen soft, nontender, nondistended.
Extremities: +1 edema bilateral lower extremities
Neuro: Awake, alert, oriented. Nonfocal.
Psych: Calm but tearful at times. Appropriate affect.
Vital Signs:
Vital Signs
Temp Pulse Resp BP Pulse Ox
97.8 F 101 14 122/81 97
03/02/25 07:40 03/02/25 08:28 03/02/25 07:40 03/02/25 08:28 03/02/25 07:40
Lab Results:
Laboratory Data
WBC 10.5 10^3/uL (4.8-10.8) 03/02/25 05:06
Hgb 8.8 g/dL (12.0-16.0) L 03/02/25 05:06
Plt Count 423 10^3/uL (130-400) H 03/02/25 05:06
PT 13.4 Sec (11.4-14.6) 02/25/25 05:29
INR 0.99 02/25/25 05:29
APTT 29.8 Sec (23.4-35.0) 02/25/25 05:29
eGFR > 60.00 03/02/25 05:06
Orders
Orders
Orders From Last 24 Hours
03/02/25 18:00
Brigatinib 180 mg PO QPM
--- NOTE | 2025-03-02 11:29 | W.PN.NEPH.PH ---
Today's Communication / Plan
-
hold lasix
Assessment/Plan
-
Impression:
Hyponatremia
Hypocalcemia
Hypoxic respiratory failure on presentation with associated bilateral pleural effusion
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
Hypoalbuminemia/edema
Hypertension
Recent fall with subsequent left humerus fracture
HFpEF 55%
Plan:
follow BMP
hold lasix, can consider po lasix in 24-48h if needed
continue calcium 1gm BID
check Phos
does not appear to be volume overloaded currently
-
-
Date of Service: March 02, 2025
CC / HPI / ROS
-
Chief Complaint:
Hypocalcemia
Hyponatremia
History of Present Illness:
BP low but stable
Sodium up to 132
Calcium at 7.5
evolving metabolic alkalosis
Review of Systems:
Nonoliguric but requiring straight catheterization
c/o dry mouth
Multiple pains : significant left shoulder
Labs
-
Labs:
WBC 10.5 10^3/uL (4.8-10.8) 03/02/25 05:06
RBC 3.34 10^6/uL (4.20-5.40) L 03/02/25 05:06
Hgb 8.8 g/dL (12.0-16.0) L 03/02/25 05:06
Hct 27.4 % (37.0-47.0) L 03/02/25 05:06
Plt Count 423 10^3/uL (130-400) H 03/02/25 05:06
Sodium 132 mmol/L (135-145) L 03/02/25 05:06
Potassium 4.6 mmol/L (3.5-5.1) 03/02/25 05:06
Chloride 95 mmol/L (98-107) L 03/02/25 05:06
Carbon Dioxide 34 mmol/L (22-30) H 03/02/25 05:06
BUN 19 mg/dl (7-17) H 03/02/25 05:06
Creatinine 0.4 mg/dL (0.6-1.0) L 03/02/25 05:06
eGFR > 60.00 03/02/25 05:06
Glucose 201 mg/dl (70-99) H 03/02/25 05:06
Calcium 7.5 mg/dl (8.4-10.2) L 03/02/25 05:06
Hsd-X-Khtbwbvdvsx Pept 615 pg/ml 02/25/25 05:29
Albumin 2.3 g/dl (3.5-5.0) L 03/02/25 05:06
Physical Exam
-
Vital Signs:
Vital Signs
Temp Pulse Resp BP Pulse Ox
98.4 F 98 14 106/67 98
03/02/25 11:04 03/02/25 11:04 03/02/25 11:04 03/02/25 11:04 03/02/25 11:04
Cardiovascular:: Regular rate and rhythm
Respiratory:: Bilateral: Coarse
Lung Excursion:: Normal
Abdomen:: Nontender and Soft
Bowel Sounds:: Normal
Extremity Edema:: None: Bilateral:
[2025-03-02] MEDS: SENOKOT-S 1 TABLET PO (13:14)
--- NOTE | 2025-03-02 14:39 | W.PN.HOSP.TC ---
Today's Communication/Plan
-
monitor electrolytes
Lasix per nephrology
Continue wean off oxygen as possible
Monitor for oversedation with pain medication
Bowel regimen for narcotic induced constipation
Assessment / Plan
Assessment / Plan
MR T spine
Redemonstration of extensive osseous metastatic disease. Extraosseous malignant soft tissue in the spinal canal from T7 through T9 and retropulsion of the chronic pathologic compression fractures of T7 and T8 with secondary severe spinal canal
stenosis at T8 to moderate spinal canal stenosis at T7. No new pathologic compression fracture. Similar appearance of the thoracic spine and lumbar spine compared to previous MRI examinations from 01/14/2025 and 01/13/2025.

1. Acute Hypoxic Respiratory Failure - Improving
Small Bilateral Pleural Effusions
-Patient noted to be hypoxic requiring 6 L oxygen through nasal cannula in ER
-proBNP not significantly elevated. Echocardiogram was a poor study although no overt concern of heart failure
-Recent CT chest PE on 02/16 was negative for any VTE.
-small bilateral pleural effusion on imaging
-Patient getting empiric IV Lasix, oxygenation has improved 2 to 3 L on NC
-wean off o2 as possible
2. Hypocalcemia
-Corrected calcium of low for albumin.
-Patient was provided IV calcium followed by initiation of oral calcium bicarbonate pills
-PTH/vitamin D level not indicative of any abnormality
-Chemo? related. Nephro following and help appreciated
3. Acute hyponatremia
-Suspected multifactorial from malignancy, pain and hypervolemia related
-maintained on 40 oz fluid restriction
-Na level has came up to 132.
4. Recent Fall with left humerus fracture
Pathologic fracture left coracoid process
Nondisplaced fracture lateral left ninth rib
Thoracic spine compression deformities of indeterminate acuity
-MRI T-spine finding as above
-neurosurgery evaluated and recommended surgical correction only if patient have significant weakness developing
-Dr. Gresham discussed case with on-call [facility] orthopedic surgeon who requested patient to follow-up with Dr. Chris Kunz for further management of left humeral fracture
-TLSO brace for patient to use per neurosurgery recommendation
- Patient also started on IV Decadron currently on 6 mg every 8h
5. Mild toxic encephalopathy
- From high-dose of narcotics required due to significant pain
- No other ongoing infection issue
6. Non-small cell lung cancer with metastatic disease
- Hematology/oncology following-increase Brigatinib dose to 180 mg day
7. Prolonged QTc
-Suspected at least partly from hypocalcemia
-Avoid/minimize QTc-prolonging medications
8. Lower extremity swelling
- Secondary to volume overload state
- Echo poor quality although no clear concern of low EF/heart failure
- Lower extremity DVT has been negative
9. Leukocytosis
- suspected steroids use related vs reactive with malignancy
10. Chronic pain and narcotic dependence
Narcotic induced constipation
-Patient is on Morphine 30mg q4h prn sev pain, morphine 15mg q12h pain.
-providing mag citrate for constipation, last BM in 5 days
Anemia of Chronic Disease
High ALP -Likely related to bone metastases
Essential Hypertension
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
DVT Prophylaxis: Lovenox
Code Status: Full Code
Total time spent : 54 mins
Anticipated Discharge: > 48 hours
Subjective/Interval History
-
Date of Service: March 02, 2025
Patient having significant left shoulder pain with passive movement and need for ADLs
Patient is also feeling loopy/drowsy today
Reported no bowel movements for 5 days
Objective Data
-
Labs:
Laboratory Results
03/02/25
05:06
WBC 10.5
Hgb 8.8 L
Hct 27.4 L
Plt Count 423 H
Sodium 132 L
Potassium 4.6
Chloride 95 L
Carbon Dioxide 34 H
BUN 19 H
Creatinine 0.4 L
Glucose 201 H
Calcium 7.5 L
Vital Signs:
Vital Signs
Temp Pulse Resp BP Pulse Ox
98.4 F 98 14 106/67 98
03/02/25 11:04 03/02/25 11:04 03/02/25 11:04 03/02/25 11:04 03/02/25 11:04
I&O
03/01/25 03/02/25 03/03/25
06:59 06:59 06:59
Intake Total 1080 / 1080 1080 / 1080
Output Total 1200 / 1200 900 / 900
Balance -120 / -120 180 / 180
Review of Systems
-
Respiratory: Reports No Symptoms
Cardiac: Reports No Symptoms
Abdomen/GI: Reports Nausea and Constipated; Denies Vomiting
Physical Exam
-
General: Cachectic
HEENT: Oxygen (3 L NC)
Respiratory: Clear to Auscultation; Negative Wheezes or Rhonchi
Cardiac: Regular Rhythm and S1/S2; Negative Murmur
GI: Soft, Nontender and Nondistended
Musculoskeletal: Other (Left arm in sling); Negative No Edema
Neuro: Awake
--- NOTE | 2025-03-02 16:43 | PN.CDI ---
CDI
- -
CDI:
Physician Documentation Request
Admit Date: 02/25/25 13:06
Dear Doctor Alfonso,
Please review the following and provide your response in the progress notes.
Clinical Indicators:
Pt admitted with acute hypoxic respiratory failure, bilateral pleural effusions ad weakness.
02/28 Progress Note: 'Moderate CHF on CT Chest -- concern for possible HFpEF exacerbation (b/c of hypoxia, good response to Lasix, lower extremity edema, and CHF on CT, although echo and proBNP not strongly suggestive of CHF)
Concern for Fluid Overload'
03/01 Pulm: ' Acute hypoxic respiratory failure related with pulmonary edema and bilateral pleural effusions.
- Continued improvement with IV Lasix...Suspect patient has acute CHF exacerbation given CT, LE edema, response to lasix '
03/02 HPN: 'proBNP not significantly elevated. Echocardiogram was a poor study although no overt concern of heart failure.'
Please clarify the diagnoses associated for the use of IV Lasix:
Acute non-cardiac pulmonary edema due to fluid overload
Acute non-cardiac pulmonary edema due to other cause (please specify)
Acute pulmonary edema due to heart failure (please specify type and acuity)
Type: systolic, diastolic, combined or other type
Acuity: acute (new onset), chronic or acute on chronic
Other
Use of terms such as suspected, likely, concern for, or probable (associated with a specific diagnosis that is being evaluated, monitored, or treated as if it exists) are acceptable and can be coded in the inpatient setting, when documented at the
time of discharge.
Thank you,
Kelly Young RN, BSN
CDI Specialist
[facility]
Please use your independent medical judgment in providing your response.
[2025-03-02] MEDS: LOVENOX 40 MG SC (17:32)
[2025-03-02] MEDS: NON-FORMULARY ITEM 180 MG PO (17:33)
[2025-03-02] MEDS: CITROMA 300 ML PO (21:23)
[2025-03-03] MEDS: DECADRON 6 MG IV ×3 (05:27→20:12)
[2025-03-03 05:48] LABS: % Basophils 0.2 % (0-2); % Immature Granulocytes 1.3 % (0-0.5); % Lymphocytes 8.8 % (20.5-51.1); % Monocytes 4.6 % (1.7-9.3); % Neutrophils 85.1 % (42.2-75.2); Absolute Immature Granulocytes 0.2 10^3/uL (0-0.05); Absolute Lymphocytes 1.1 10^3/uL (1.2-3.4); Absolute Monocytes 0.6 10^3/uL (0.1-0.6); Absolute Neutrophils 10.3 10^3/uL (1.4-6.5); Hematocrit 29.1 % (37.0-47.0); Hemoglobin 9.5 g/dL (12.0-16.0); Mean Corp Hgb Conc. 32.6 g/dL (33.0-37.0); Mean Corpuscular Hgb 26.5 pg (27.0-31.0); Mean Corpuscular Volume 81.3 fL (81.0-99.0); Mean Platelet Volume 9.6 fL (7.4-10.4); Nucleated Red Blood Cells % 0 %; Platelet Count 459 10^3/uL (130-400); Red Blood Cell Count 3.58 10^6/uL (4.20-5.40); Red Cell Dist. Width 18.4 % (11.5-14.5); White Blood Cell Count 12.1 10^3/uL (4.8-10.8)
[2025-03-03 06:00] VITALS: BMI 23.3
[2025-03-03 06:13] LABS: Blood Urea Nitrogen 26 mg/dl (7-17); Calcium 7.7 mg/dl (8.4-10.2); Carbon Dioxide 35 mmol/L (22-30); Chloride 96 mmol/L (98-107); Estimated Creatinine Clearance 66 ml/min; Glucose 178 mg/dl (70-99); Potassium 4.7 mmol/L (3.5-5.1); Sodium 133 mmol/L (135-145); eGFR > 60.00
[2025-03-03 07:55] VITALS: BP 130/83
--- NOTE | 2025-03-03 08:19 | W.PN.PUL3 ---
Today's Communication / Plan
-
Hold diuresis as per nephro
would like orthopedics to see her inpatient
PT/OT - rec'd skilled rehab
pain control
Wean down supplemental O2 as tolerated while keeping SpO2 >90-94%
Ambulatory pulse oximetry prior to discharge
At this point, patient is awaiting placement into skilled rehab. We will follow her in the pulmonary office. No additional recommendations at this time. Pulmonary service will now sign off. Please reconsult if there are any additional
questions/concerns, or if patient's respiratory status deteriorates.
Assessment
-
Patient is a 69-year-old female with history of left hip replacement for left hip avascular necrosis, recent left humerus fracture (is in splint and [facility] Dr. Finn Desai outpatient), metastatic cancer of unknown origin, and
hypertension who presented with increased generalized weakness for last few weeks to months, lower extremity swelling and hypoxia. Upon arrival, EMS stated that they found patient with a oxygen room air saturation of 50%. She was placed on 6 L nasal
cannula in EMS/in the ER and saturated 89%. CT showing CHF signs, we are consulted for evaluation.
Acute hypoxic respiratory failure
Small Bilateral Pleural Effusions/Moderate CHF on CT Chest
Left upper lobe mass with spiculated margins measuring up to 2.[address] Chest from 02/25/2025, known primary lung NSCLC
Generalized weakness
LE Swelling
Subacute left humerus fracture (is in splint and [facility] Dr. Finn Desai outpatient)
Conditions present [employer]
Metastatic disease of unknown origin, known to [facility]
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
Status post flex sigmoidoscopy with no lesion noted in the rectosigmoid junction
Known pulmonary nodule, JOHN measuring 1.5cm on PET
ALK mutation typical for non-small cell lung cancer, completed palliative radiation therapy 01/30/2025 to areas of painful bone disease
HTN
Left Hip Avascular Necrosis s/p Left Hip Replacement
Left bundle branch block (LBBB)
Chest pain syndrome
Family history of early CAD
Plan
#1. Acute hypoxic respiratory failure related with pulmonary edema and bilateral pleural effusions.
- Continued improvement with IV Lasix
- Lasix now on hold as she appears euvolemic; resume as per nephro
- Continue supplemental O2 and wean as tolerated to keep SpO2 >90-94%
- She will need an ambulatory pulse ox prior to discharge
- PT/OT - rec'd skilled rehab pending placement
Hypoxemia noted on arrival, O2 jared 50s reportedly, now on NC
She is not known to be on home O2 in the past
Prior history of lung disease is NOT noted --she has nodule noted on CT
She is well known to [facility]. Had been undergoing w/u for her diffuse met disease felt to be due to primary lung NSCLC based on ALK testing, she has a known JOHN nodule, previously 1.5cm now 1.6 with margins of 2.8cm with corresponding
lymphadenopathy.
It was never planned for outpatient biopsy of her lung nodule as this was presumed based on genetic testing. She has not previously seen outpatient pulmonary in the past. She denies any prior history of lung disease.
Oncology following - recs appreciated
Continue Brigatinib
CT chest obtained indicating pulmonary edema with effusions. She was given 1 dose of Lasix with output of 1 L and improvement of her lower extremity edema.
The size of her effusions are likely too small for thoracentesis but if enlarging, can plan for diag tap
Suspect patient has acute CHF exacerbation given CT, LE edema, response to lasix
Her LE edema has improved and she has minimal crackles on exam, likely due to atelectasis at this point more than fluid - lasix now on hold as per nephro
She also has a low serum albumin which is going to contribute to her LE edema
PET CT reviewed as OP as well, she has associated LNS in med/hilum
Prior ECHO results are reviewed indicating preserved function
Repeat study showing stable findings, preserved EF
Patient had a left humerus fracture from a fall [employer] for which she saw outpatient orthopedics and told to keep her arm in a splint until outpatient follow-up.
Patient is requesting second opinion from [facility] - defer consult to hospitalist team
Generalized weakness a prevailing issue
PT/OT, consideration for PM&R as well
MRI with extensive spinal disease --> continue Decadron
Will need outpatient pulmonary evaluation in our office for PFTs and 6MWT
Reviewed with patient
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
At this point, patient is awaiting placement into skilled rehab. We will follow her in the pulmonary office. No additional recommendations at this time. Pulmonary service will now sign off. Thank you for allowing us to be involved in the care of
this patient. Please reconsult if there are any additional questions/concerns, or if patient's respiratory status deteriorates.
Diagnostic Data
Chest X-Ray: 01/16/25- Left-sided port with tip within the SVC. No evidence for significant pneumothorax.
CT Scan: CHEST 02/25/25- 1. No pulmonary embolism identified.
2. Moderate CHF with small bilateral pleural effusions.
3. Left upper lobe mass with spiculated margins measuring up to 2.8 cm in diameter, pulmonary malignancy versus less likely metastasis.
4. Diffuse osseous metastatic disease. Fracture proximal left humerus, presumably pathologic. Pathologic fracture left coracoid process. Nondisplaced fracture lateral left ninth rib. Thoracic spine compression deformities of indeterminate acuity.
PET 01/01/25- hypermetabolic 1.5 x 1.4 cm nodule within the anterior left upper lobe; multiple hypermetabolic lymph nodes within the superior mediastinum/left hilum consistent with malignant nodes. Additionally there is a right supraclavicular
hypermetabolic lymph node, likely an additional malignant lymph node.
Mild hypermetabolic activity in the region of the rectosigmoid junction which demonstrates a max SUV of 4.9; hypermetabolic lesion within the anterior right hepatic lobe which likely represents a hepatic metastasis; extensive osseous hypermetabolic
metastasis throughout the axial and proximal appendicular skeleton. There are additional nonhypermetabolic sclerotic foci which likely represent additional sclerotic osseous metastasis.
Echo: 02/26/25- Normal LV size with low normal systolic function and no obvious wall motion abnormality. LVEF is 50-55% by visual estimation. Normal appearing right ventricular size and function.
Limited valvular interrogation, however, no significant valvular disease. Estimated pulmonary artery pressure of 25 mmHg, assuming a right atrial pressure of 3 mmHg. Compared to prior from August 10, 2021, no obvious change.
08/10/21- Normal left ventricular systolic function. Left ventricular ejection fraction is 50-55%. No significant valvular disease. No significant change since the prior study of 2017.
Reports and relevant images were personally reviewed.
Total time spent today was 36 minutes for this encounter. Time includes reviewing laboratory test/imaging results, reviewing pertinent medical records, obtaining and reviewing medical history, performing an appropriate exam, ordering medications,
tests and procedures. Time also includes documentation of this encounter, coordinating patient care and communicating with other healthcare professionals. Total time does not include separately billed tests performed on this date of service.
Subjective Data
-
Date of Service:
Date of Service: March 03, 2025
Chief Complaint: Pulmonary Follow Up
Subjective:
Pt seen this AM and was resting in bed in NAD. , Jamar, at bedside. On 3L/min NC and breathing comfortably. Had a BM today and feels better. Working with PT. Left arm remains in a sling. Denies chest pain, BRAN, abd pain, N/V/f/c.
Review of Systems
General: Other (negative unless mentioned above)
Objective Data
Data Reviewed
Vital Signs / I&O / Oxygen:
Vital Signs
Temp Pulse Resp BP Pulse Ox
98.2 F 94 18 130/83 98
03/03/25 07:55 03/03/25 07:55 03/03/25 07:55 03/03/25 07:55 03/03/25 07:55
Intake and Output
03/02/25 03/03/25 03/04/25
06:59 06:59 06:59
Intake Total 1080 / 1080 1200 / 1200
Output Total 900 / 900
Balance 180 / 180 1200 / 1200
SaO2 98
Nasal Cannula flow liters per 3
minute
Physical Exam
General: Respiratory Distress (negative), Comfortable, Chills (negative) and Sweats (negative)
HEENT: Normocephalic and Moist Mucous Membranes
Cardiovascular: S1-S2 and Peripheral Edema (Trace lower extremity edema bilaterally)
Respiratory: Wheeze (negative), Crackles (Bibasilar), Rhonchi (negative), Non-Labored Respirations and Stridor (negative)
GI: Soft, Non Distended, Non Tender and Normal Bowel Sounds
Neurology: AO x 3 and Tremors (negative)
Skin: Warm, Dry, Cyanosis (negative) and Jaundice (negative)
Labs/Micro/Reports
Lab Data
03/03/25 05:03
03/03/25 05:03
[2025-03-03] MEDS: PROTONIX 40 MG PO (08:26)
[2025-03-03] MEDS: ZESTRIL 5 MG PO (08:26)
[2025-03-03] MEDS: VITAMIN B-12 1000 MCG PO (08:26)
[2025-03-03] MEDS: ZINC 50 MG PO (08:26)
[2025-03-03] MEDS: THERAGRAN 1 TABLET PO (08:26)
[2025-03-03] MEDS: OSCAL CAL 500 1000 MG PO ×2 (08:26→19:43)
[2025-03-03] MEDS: MS CONTIN (EXTENDED RELEASE) 15 MG PO ×2 (08:27→19:43)
[2025-03-03] MEDS: VITAMIN C 500 MG PO (08:27)
--- NOTE | 2025-03-03 09:14 | W.PN.NEPH.PH ---
Today's Communication / Plan
-
Follow BMP
Assessment/Plan
-
Impression:
Hyponatremia
Hypocalcemia
Hypoxic respiratory failure on presentation with associated bilateral pleural effusion
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
Hypoalbuminemia/edema
Hypertension
Recent fall with subsequent left humerus fracture
HFpEF 55%
Plan:
follow BMP
hold lasix still, can consider po lasix in 24-48h if needed
continue calcium 1gm BID
Fluid restrict 48 ounces
does not appear to be volume overloaded currently
-
-
Date of Service: March 03, 2025
CC / HPI / ROS
-
Chief Complaint:
Hypocalcemia
Hyponatremia
History of Present Illness:
BP low but stable
Sodium up to 133
Calcium at 7.7
evolving metabolic alkalosis 35
BUN slightly higher 26
Review of Systems:
Nonoliguric but requiring straight catheterization
c/o dry mouth still
Multiple pains : significant left shoulder
Improved oral intake
Labs
-
Labs:
WBC 12.1 10^3/uL (4.8-10.8) H 03/03/25 05:03
RBC 3.58 10^6/uL (4.20-5.40) L 03/03/25 05:03
Hgb 9.5 g/dL (12.0-16.0) L 03/03/25 05:03
Hct 29.1 % (37.0-47.0) L 03/03/25 05:03
Plt Count 459 10^3/uL (130-400) H 03/03/25 05:03
Sodium 133 mmol/L (135-145) L 03/03/25 05:03
Potassium 4.7 mmol/L (3.5-5.1) 03/03/25 05:03
Chloride 96 mmol/L (98-107) L 03/03/25 05:03
Carbon Dioxide 35 mmol/L (22-30) H 03/03/25 05:03
BUN 26 mg/dl (7-17) H 03/03/25 05:03
Creatinine 0.5 mg/dL (0.6-1.0) L 03/03/25 05:03
eGFR > 60.00 03/03/25 05:03
Glucose 178 mg/dl (70-99) H 03/03/25 05:03
Calcium 7.7 mg/dl (8.4-10.2) L 03/03/25 05:03
Phosphorus 3.0 mg/dl (2.5-4.5) 03/02/25 05:06
Gxc-F-Elvtylittkj Pept 615 pg/ml 02/25/25 05:29
Albumin 2.3 g/dl (3.5-5.0) L 03/02/25 05:06
Physical Exam
-
Vital Signs:
Vital Signs
Temp Pulse Resp BP Pulse Ox
98.2 F 94 18 130/83 98
03/03/25 07:55 03/03/25 08:26 03/03/25 07:55 03/03/25 08:26 03/03/25 07:55
Cardiovascular:: Regular rate and rhythm
Respiratory:: Bilateral: Coarse
Lung Excursion:: Normal
Abdomen:: Nontender and Soft
Bowel Sounds:: Normal
Extremity Edema:: None: Bilateral:
--- NOTE | 2025-03-03 10:25 | W.PN.ONC ---
Today's Communication / Plan
-
Continue brigatinib 180mg, standing bowel regimen plus prns, pain control
Impression
Impression
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
On brigatinib therapy (started 02/23); s/p spinal radiation
weakness, back pain
anxiety
Thoracic/lumbar MRI 02/26/25: Redemonstration of extensive osseous metastatic disease. Extraosseous malignant soft tissue in the spinal canal from T7 through T9 and retropulsion of the chronic pathologic compression fractures of T7 and T8 with
secondary severe spinal canal stenosis at T8 to moderate spinal canal stenosis at T7. No new pathologic compression fracture. Similar appearance of the thoracic spine and lumbar spine compared to previous MRI examinations from 01/14/2025 and
01/13/2025.
Dec PET scan and January MRIs both with significant osseus metastatic disease of spine with slight extension into epidural space and vertebral body compression deformities--suspect chronic back pain is related to osseous metastasis/chronic compression
deformities. Progressive pain/weakness may be spinal cord compression given extraosseous malignancy within spinal canal T7-T9 and spinal canal stenosis.
Plan
Plan
Continue outpatient brigatinib 180mg (dose increased 12/02). Discussed with patient and at bedside.
Regarding humerus fracture, reviewed with patient/ recommendation to follow up with Dr Chris Kunz as an outpatient-- He is the specialist at [facility] who does metastatic tumor surgery but does not do such surgeries at [facility].
Anticipate needing rehab and medical optimization prior to any surgical intervention, especially given new hypoxic respiratory insufficiency. They are in agreement.
Continue steroids and consider slow taper as tolerated, per neurosurgery.
PT/OT, back brace when ambulatory.
Adequate pain control. Ice/cold compress prn to back and arm.
Standing bowel regimen (takes senna x2 qAM at home) plus PRNs.
Incentive spirometer.
Mood stable- reassess mood/SI regularly.
Will need to reschedule next monthly xgeva. Continue calcium supplementation and management of electrolyte imbalances per primary team.
Subjective/Objective
Subjective/Objective
Reports feeling a bit better overall, especially now that she has been OOB to chair/bedside commode and passed BM. Back pain well controlled, still reporting L arm pain. Mood improved. Continues to report anxiety intermittently and fleeting passive
thoughts about at night-- denies active SI/HI/plan; she lists lots to look forward to in future and feeling well supported by family.
General: Sitting up in chair. No acute distress. Appears overall comfortable.
Lungs: Nonlabored breathing. Able to talk in full sentences. Supplemental oxygen via nasal canula.
GI: Abdomen soft, nontender, nondistended.
Extremities: +1 edema bilateral lower extremities. L arm immobilized in sling.
Neuro: Awake, alert, oriented. Nonfocal.
Psych: Calm, appropriate affect.
Vital Signs:
Vital Signs
Temp Pulse Resp BP Pulse Ox
98.2 F 94 18 130/83 98
03/03/25 07:55 03/03/25 08:26 03/03/25 07:55 03/03/25 08:26 03/03/25 10:58
Lab Results:
Laboratory Data
WBC 12.1 10^3/uL (4.8-10.8) H 03/03/25 05:03
Hgb 9.5 g/dL (12.0-16.0) L 03/03/25 05:03
Plt Count 459 10^3/uL (130-400) H 03/03/25 05:03
PT 13.4 Sec (11.4-14.6) 02/25/25 05:29
INR 0.99 02/25/25 05:29
APTT 29.8 Sec (23.4-35.0) 02/25/25 05:29
eGFR > 60.00 03/03/25 05:03
Orders
Orders
Orders From Last 24 Hours
03/02/25 18:00
Brigatinib See Dose Instructions PO QPM
03/03/25 11:16
Ice Application [Cold Application] As Directed
03/04/25 08:00
Docusate W/Senna [Senokot-S] 1 tablet PO DAILY
Docusate W/Senna [Senokot-S] 2 tablet PO DAILY
--- NOTE | 2025-03-03 13:58 | W.PN.HOSP.TC ---
Addendum entered and electronically signed by Musa Hamilton MD 03/04/25 08:00:
Add to diagnosis:
Unable to determine HF status as echocardiogram report inconclusive/poor study
Original Note:
Today's Communication/Plan
-
wean off o2 as possible
adjust pain medication
monitor renal function/electrolytes
Assessment / Plan
Assessment / Plan
MR T spine
Redemonstration of extensive osseous metastatic disease. Extraosseous malignant soft tissue in the spinal canal from T7 through T9 and retropulsion of the chronic pathologic compression fractures of T7 and T8 with secondary severe spinal canal
stenosis at T8 to moderate spinal canal stenosis at T7. No new pathologic compression fracture. Similar appearance of the thoracic spine and lumbar spine compared to previous MRI examinations from 01/14/2025 and 01/13/2025.

1. Acute Hypoxic Respiratory Failure - Improving
Small Bilateral Pleural Effusions
-Patient noted to be hypoxic requiring 6 L oxygen through nasal cannula in ER
-proBNP not significantly elevated. Echocardiogram was a poor study although no overt concern of heart failure
-Recent CT chest PE on 02/16 was negative for any VTE.
-small bilateral pleural effusion on imaging
-Further lasix dosing on hold.
-wean off o2 as possible
2. Hypocalcemia
-Corrected calcium of low for albumin.
-Patient was provided IV calcium followed by initiation of oral calcium bicarbonate pills
-PTH/vitamin D level not indicative of any abnormality
-Chemo? related. Nephro following and help appreciated
3. Acute hyponatremia
-Suspected multifactorial from malignancy, pain and hypervolemia related
-maintained on 40 oz fluid restriction
-Na level has came up to 133.
4. Recent Fall with left humerus fracture
Pathologic fracture left coracoid process
Nondisplaced fracture lateral left ninth rib
Thoracic spine compression deformities of indeterminate acuity
-MRI T-spine finding as above
-neurosurgery evaluated and recommended surgical correction only if patient have significant weakness developing
- discussed case with on-call [facility] orthopedic surgeon who requested patient to follow-up with Dr. Chris Kunz for further management of left humeral fracture.
-TLSO brace for patient to use per neurosurgery recommendation
-Patient also started on IV Decadron currently on 6 mg every 8h
- Patient hesitant to take home regular dose of morphine 30 mg due to concern of encephalopathy, cutting down to 15 mg q4h
5. Mild toxic encephalopathy - Improved
- From high-dose of narcotics required due to significant pain
- No other ongoing infection issue
6. Non-small cell lung cancer with metastatic disease
- Hematology/oncology following-increase Brigatinib dose to 180 mg day
7. Prolonged QTc
-Suspected at least partly from hypocalcemia
-Avoid/minimize QTc-prolonging medications
8. Lower extremity swelling
- Secondary to volume overload state
- Echo poor quality although no clear concern of low EF/heart failure
- Lower extremity DVT has been negative
9. Leukocytosis
- suspected steroids use related vs reactive with malignancy
10. Chronic pain and narcotic dependence
Narcotic induced constipation
-Patient is on Morphine 30mg q4h prn sev pain, morphine 15mg q12h pain.
-had BM with oral laxatives, continue on BM regimen
Anemia of Chronic Disease
High ALP -Likely related to bone metastases
Essential Hypertension
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
DVT Prophylaxis: Lovenox
Code Status: Full Code
Anticipated Discharge: 24 - 48 hours
Subjective/Interval History
-
Date of Service: March 03, 2025
had BM overnight
left arm pain is ongoing but bit better with sitting up/sling
no n/v overnight
Objective Data
-
Labs:
Laboratory Results
03/03/25
05:03
WBC 12.1 H
Hgb 9.5 L
Hct 29.1 L
Plt Count 459 H
Sodium 133 L
Potassium 4.7
Chloride 96 L
Carbon Dioxide 35 H
BUN 26 H
Creatinine 0.5 L
Glucose 178 H
Calcium 7.7 L
Vital Signs:
Vital Signs
Temp Pulse Resp BP Pulse Ox
98.2 F 94 18 130/83 98
03/03/25 07:55 03/03/25 08:26 03/03/25 07:55 03/03/25 08:26 03/03/25 10:58
I&O
03/02/25 03/03/25 03/04/25
06:59 06:59 06:59
Intake Total 1080 / 1080 1200 / 1200
Output Total 900 / 900
Balance 180 / 180 1200 / 1200
Review of Systems
-
Respiratory: Reports No Symptoms
Cardiac: Reports No Symptoms
Abdomen/GI: Denies Abdominal Pain or Constipated
Physical Exam
-
General: No Apparent Distress and Comfortable
HEENT: Negative Oxygen
Respiratory: Clear to Auscultation
Cardiac: Regular Rhythm and S1/S2; Negative Murmur or Rub
GI: Soft and Nontender
Musculoskeletal: Other (TLSO brace in place)
Neuro: Awake, Alert, Oriented, No Motor Deficits and Nonfocal/Grossly Intact
Psych: Calm
[2025-03-03] MEDS: MORPHINE SULFATE 15 MG PO ×2 (15:19→23:31)
[2025-03-03 15:55] VITALS: BP 116/83
[2025-03-03 16:02] LABS: Alkaline Phosphatase 268 U/L (38-126)
--- NOTE | 2025-03-03 16:36 | CM ---
PT OT recommended SNF.
Met with patient and ;
As per care port SNF referrals sent to [facility] has no beds . LM with [facility] also with admissions.
LM with admission at [facility].
Wes Miracle at [facility] no no beds.
Will need additional SNF picks .
PLAN To SNf after locate and auth obtained
[2025-03-03] MEDS: LOVENOX 40 MG SC (17:34)
[2025-03-03] MEDS: NON-FORMULARY ITEM 180 MG PO (17:36)
[2025-03-03 23:40] VITALS: BP 121/89
[2025-03-04] MEDS: DECADRON 6 MG IV ×3 (04:24→20:00)
[2025-03-04 06:00] VITALS: BMI 23.1
[2025-03-04 06:30] LABS: % Basophils 0.1 % (0-2); % Immature Granulocytes 1.7 % (0-0.5); % Lymphocytes 12.1 % (20.5-51.1); % Monocytes 4.5 % (1.7-9.3); % Neutrophils 81.6 % (42.2-75.2); Absolute Immature Granulocytes 0.2 10^3/uL (0-0.05); Absolute Lymphocytes 1.5 10^3/uL (1.2-3.4); Absolute Monocytes 0.6 10^3/uL (0.1-0.6); Absolute Neutrophils 10.4 10^3/uL (1.4-6.5); Hematocrit 31.4 % (37.0-47.0); Hemoglobin 10.2 g/dL (12.0-16.0); Mean Corp Hgb Conc. 32.5 g/dL (33.0-37.0); Mean Corpuscular Hgb 26.8 pg (27.0-31.0); Mean Corpuscular Volume 82.6 fL (81.0-99.0); Mean Platelet Volume 9.6 fL (7.4-10.4); Nucleated Red Blood Cells % 0 %; Platelet Count 473 10^3/uL (130-400); Red Cell Dist. Width 18.7 % (11.5-14.5); White Blood Cell Count 12.7 10^3/uL (4.8-10.8)
[2025-03-04 06:56] LABS: Albumin 2.9 g/dl (3.5-5.0); Blood Urea Nitrogen 20 mg/dl (7-17); Calcium 7.3 mg/dl (8.4-10.2); Carbon Dioxide 30 mmol/L (22-30); Chloride 94 mmol/L (98-107); Estimated Creatinine Clearance 66 ml/min; Glucose 257 mg/dl (70-99); Phosphorus 2.6 mg/dl (2.5-4.5); Potassium 5.1 mmol/L (3.5-5.1); Sodium 130 mmol/L (135-145); eGFR > 60.00
[2025-03-04] MEDS: MS CONTIN (EXTENDED RELEASE) 15 MG PO ×2 (07:26→20:00)
[2025-03-04] MEDS: ZINC 50 MG PO (07:26)
[2025-03-04] MEDS: ZESTRIL 5 MG PO (07:26)
[2025-03-04] MEDS: OSCAL CAL 500 1000 MG PO ×2 (07:26→20:00)
[2025-03-04] MEDS: VITAMIN C 500 MG PO (07:26)
[2025-03-04] MEDS: PROTONIX 40 MG PO (07:26)
[2025-03-04 07:29] VITALS: BP 137/83
[2025-03-04] MEDS: VITAMIN B-12 1000 MCG PO (07:30)
[2025-03-04] MEDS: MIRALAX PO (07:30)
[2025-03-04] MEDS: THERAGRAN 1 TABLET PO (07:30)
[2025-03-04] MEDS: SENOKOT-S 2 TABLET PO (07:30)
--- NOTE | 2025-03-04 09:14 | W.PN.ONC2 ---
Today's Communication / Plan
-
Continue ALK inb Tx.
Oncology will sign off.
Impression
Impression
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
On brigatinib therapy (started 02/23); s/p spinal radiation
weakness, back pain
anxiety
Thoracic/lumbar MRI 02/26/25: Redemonstration of extensive osseous metastatic disease. Extraosseous malignant soft tissue in the spinal canal from T7 through T9 and retropulsion of the chronic pathologic compression fractures of T7 and T8 with
secondary severe spinal canal stenosis at T8 to moderate spinal canal stenosis at T7. No new pathologic compression fracture. Similar appearance of the thoracic spine and lumbar spine compared to previous MRI examinations from 01/14/2025 and
01/13/2025.
Dec PET scan and January MRIs both with significant osseus metastatic disease of spine with slight extension into epidural space and vertebral body compression deformities--suspect chronic back pain is related to osseous metastasis/chronic compression
deformities. Progressive pain/weakness may be spinal cord compression given extraosseous malignancy within spinal canal T7-T9 and spinal canal stenosis.
Plan
Plan
Continue outpatient brigatinib 180mg (dose increased 12/02). Discussed with patient and at bedside.
Regarding humerus fracture, reviewed with patient/ recommendation to follow up with Dr Chris Kunz as an outpatient-- He is the specialist at [facility] who does metastatic tumor surgery but does not do such surgeries at [facility].
Anticipate needing rehab and medical optimization prior to any surgical intervention, especially given new hypoxic respiratory insufficiency. They are in agreement.
Continue steroids and consider slow taper as tolerated, per neurosurgery.
PT/OT, back brace when ambulatory.
Adequate pain control. Ice/cold compress prn to back and arm.
Standing bowel regimen (takes senna x2 qAM at home) plus PRNs.
Incentive spirometer.
Mood stable- reassess mood/SI regularly.
Will need to reschedule next monthly xgeva. Continue calcium supplementation and management of electrolyte imbalances per primary team.
Subjective/Objective
Chief Complaint
ACS Oncology F/U
Subjective
Slow improvement. On brigatinib 180 mg Po QD. Alk Phos improved. Case management working on D/C plans.
Vital Signs:
Vital Signs
Temp Pulse Resp BP Pulse Ox
97.7 F 90 14 137/83 98
03/04/25 07:29 03/04/25 07:29 03/04/25 07:29 03/04/25 07:29 03/04/25 07:29
Lab Results:
Laboratory Data
WBC 12.7 10^3/uL (4.8-10.8) H 03/04/25 05:00
Hgb 10.2 g/dL (12.0-16.0) L 03/04/25 05:00
Plt Count 473 10^3/uL (130-400) H 03/04/25 05:00
PT 13.4 Sec (11.4-14.6) 02/25/25 05:29
INR 0.99 02/25/25 05:29
APTT 29.8 Sec (23.4-35.0) 02/25/25 05:29
eGFR > 60.00 03/04/25 05:00
Physical Exam
Sitting in chair. Non toxic.
--- NOTE | 2025-03-04 11:56 | W.PN.NEPH.PH ---
Today's Communication / Plan
-
Calcitriol initiated 0.25 mcg daily
Follow BMP
Maintain fluid restrict
Lasix currently held
Assessment/Plan
-
Impression:
Hyponatremia
Hypocalcemia
Hypoxic respiratory failure on presentation with associated bilateral pleural effusion
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
Hypoalbuminemia/edema
Hypertension
Recent fall with subsequent left humerus fracture
HFpEF 55%
Plan:
follow BMP
hold lasix still, can consider po lasix in 24-48h if needed
continue calcium 1gm BID, but will add calcitriol 0.25 mcg daily to assist in hypercalcemia manage
Fluid restrict 48 ounces RE hyponatremia which remains stable at 130
does not appear to be volume overloaded currently
-
-
Date of Service: March 04, 2025
CC / HPI / ROS
-
Chief Complaint:
Hypocalcemia
Hyponatremia
History of Present Illness:
BP low but stable
Sodium up to 130
Calcium at 7.3
evolving metabolic alkalosis 30
Review of Systems:
Nonoliguric but requiring straight catheterization
c/o dry mouth still
Multiple pains : significant left shoulder
Improved oral intake
Labs
-
Labs:
WBC 12.7 10^3/uL (4.8-10.8) H 03/04/25 05:00
RBC 3.80 10^6/uL (4.20-5.40) L 03/04/25 05:00
Hgb 10.2 g/dL (12.0-16.0) L 03/04/25 05:00
Hct 31.4 % (37.0-47.0) L 03/04/25 05:00
Plt Count 473 10^3/uL (130-400) H 03/04/25 05:00
Sodium 130 mmol/L (135-145) L 03/04/25 05:00
Potassium 5.1 mmol/L (3.5-5.1) 03/04/25 05:00
Chloride 94 mmol/L (98-107) L 03/04/25 05:00
Carbon Dioxide 30 mmol/L (22-30) 03/04/25 05:00
BUN 20 mg/dl (7-17) H 03/04/25 05:00
Creatinine 0.4 mg/dL (0.6-1.0) L 03/04/25 05:00
eGFR > 60.00 03/04/25 05:00
Glucose 257 mg/dl (70-99) H 03/04/25 05:00
Calcium 7.3 mg/dl (8.4-10.2) L 03/04/25 05:00
Phosphorus 2.6 mg/dl (2.5-4.5) 03/04/25 05:00
Gch-O-Oyynrckioph Pept 615 pg/ml 02/25/25 05:29
Albumin 2.9 g/dl (3.5-5.0) L 03/04/25 05:00
Physical Exam
-
Vital Signs:
Vital Signs
Temp Pulse Resp BP Pulse Ox
97.7 F 90 14 137/83 98
03/04/25 07:29 03/04/25 07:29 03/04/25 07:29 03/04/25 07:29 03/04/25 07:29
Cardiovascular:: Regular rate and rhythm
Respiratory:: Bilateral: Coarse
Lung Excursion:: Normal
Abdomen:: Nontender and Soft
Bowel Sounds:: Normal
Extremity Edema:: None: Bilateral:
--- NOTE | 2025-03-04 12:42 | CM ---
[facility] has no beds .
LM with admission at [facility] yesterday and today.
Wes Rausch at [facility] said no beds.
Spoke with Fatmata Parrish no beds.
Spoke with Jamar informed of above.Requested additional SNF. He said he will call back.
Will need additional SNF picks .
PLAN To SNf after locate and auth obtained
[2025-03-04] MEDS: MORPHINE SULFATE 15 MG PO (13:31)
--- NOTE | 2025-03-04 13:57 | W.PN.HOSP.TC ---
Today's Communication/Plan
-
see note
dispo planning for snf rehab
Assessment / Plan
Assessment / Plan
MR T spine
Redemonstration of extensive osseous metastatic disease. Extraosseous malignant soft tissue in the spinal canal from T7 through T9 and retropulsion of the chronic pathologic compression fractures of T7 and T8 with secondary severe spinal canal
stenosis at T8 to moderate spinal canal stenosis at T7. No new pathologic compression fracture. Similar appearance of the thoracic spine and lumbar spine compared to previous MRI examinations from 01/14/2025 and 01/13/2025.

1. Acute Hypoxic Respiratory Failure - Improving
Small Bilateral Pleural Effusions
-Patient noted to be hypoxic requiring 6 L oxygen through nasal cannula in ER
-proBNP not significantly elevated. Echocardiogram was a poor study although no overt concern of heart failure
-Recent CT chest PE on 02/16 was negative for any VTE.
-small bilateral pleural effusion on imaging
-Further Lasix dosing on hold.
-wean off o2 as possible
2. Hypocalcemia
-Corrected calcium of low for albumin.
-Patient was provided IV calcium followed by initiation of oral calcium bicarbonate pills
-PTH/vitamin D level not indicative of any abnormality
-Chemo? related. Nephro following and help appreciated
3. Acute hyponatremia
-Suspected multifactorial from malignancy, pain and hypervolemia related
-maintained on 40 oz fluid restriction
-Na level down again 130
-giving oral lasix 20mg dose
4. Recent Fall with left humerus fracture
Pathologic fracture left coracoid process
Nondisplaced fracture lateral left ninth rib
Thoracic spine compression deformities of indeterminate acuity
-MRI T-spine finding as above
-neurosurgery evaluated and recommended surgical correction only if patient have significant weakness developing
- discussed case with on-call [facility] orthopedic surgeon who requested patient to follow-up with Dr. Chris Kunz for further management of left humeral fracture.
-TLSO brace for patient to use per neurosurgery recommendation
-Patient also started on IV Decadron currently on 6 mg every 8h
-Patient hesitant to take home regular dose of morphine 30 mg due to concern of encephalopathy, cutting down to 15 mg q4h yesterday
- Patient pain remains limiting factor and manually, unfortunately no orthopedic services will able to provide any help and dose down.
- Waiting to get rehab placement and eventual outpatient follow-up with oncological orthopedic surgeon
5. Mild toxic encephalopathy - Improved
- From high-dose of narcotics required due to significant pain
- No other ongoing infection issue
6. Non-small cell lung cancer with metastatic disease
- Hematology/oncology following-increase Brigatinib dose to 180 mg day
7. Prolonged QTc
-Suspected at least partly from hypocalcemia
-Avoid/minimize QTc-prolonging medications
8. Lower extremity swelling
- Secondary to volume overload state
- Echo poor quality although no clear concern of low EF/heart failure
- Lower extremity DVT has been negative
9. Leukocytosis
- suspected steroids use related vs reactive with malignancy
10. Chronic pain and narcotic dependence
Narcotic induced constipation
-Patient is on Morphine 30mg q4h prn sev pain, morphine 15mg q12h pain.
-had BM with oral laxatives, continue on BM regimen
Anemia of Chronic Disease
High ALP -Likely related to bone metastases
Essential Hypertension
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
DVT Prophylaxis: Lovenox
Code Status: Full Code
Anticipated Discharge: Within 24 hours
Subjective/Interval History
-
Date of Service: March 04, 2025
continues to have prolem with arm pain
feeling constipated now
Objective Data
-
Labs:
Laboratory Results
03/04/25
05:00
WBC 12.7 H
Hgb 10.2 L
Hct 31.4 L
Plt Count 473 H
Sodium 130 L
Potassium 5.1
Chloride 94 L
Carbon Dioxide 30
BUN 20 H
Creatinine 0.4 L
Glucose 257 H
Calcium 7.3 L
Vital Signs:
Vital Signs
Temp Pulse Resp BP Pulse Ox
97.7 F 90 14 137/83 98
03/04/25 07:29 03/04/25 07:29 03/04/25 07:29 03/04/25 07:29 03/04/25 07:29
I&O
03/03/25 03/04/25 03/05/25
06:59 06:59 06:59
Intake Total 1200 / 1200 780 / 780
Output Total 200 / 200
Balance 1200 / 1200 580 / 580
Review of Systems
-
Respiratory: Reports No Symptoms
Cardiac: Reports No Symptoms
Abdomen/GI: Reports Constipated; Denies Abdominal Pain
Physical Exam
-
General: No Apparent Distress and Comfortable
HEENT: Oxygen (NC)
GI: Soft and Nontender
Musculoskeletal: Other (TLSO brace in place)
Neuro: Awake, Alert, Oriented, No Motor Deficits and Nonfocal/Grossly Intact
Psych: Calm
[2025-03-04 14:48] VITALS: BP 124/72
[2025-03-04] MEDS: LASIX 20 MG PO (14:49)
[2025-03-04] MEDS: LOVENOX 40 MG SC (17:09)
[2025-03-04] MEDS: NON-FORMULARY ITEM 180 MG PO (17:10)
[2025-03-04 23:15] VITALS: BP 119/77
[2025-03-05] MEDS: DECADRON 6 MG IV ×3 (04:36→20:39)
[2025-03-05 06:00] VITALS: BMI 22.9
[2025-03-05] MEDS: ROCALTROL 0.25 MCG PO (07:25)
[2025-03-05] MEDS: ZESTRIL 5 MG PO (07:26)
[2025-03-05] MEDS: PROTONIX 40 MG PO (07:27)
[2025-03-05] MEDS: MS CONTIN (EXTENDED RELEASE) 15 MG PO ×2 (07:27→20:39)
[2025-03-05] MEDS: LASIX 20 MG PO (07:27)
[2025-03-05] MEDS: VITAMIN C 500 MG PO (07:27)
[2025-03-05] MEDS: VITAMIN B-12 1000 MCG PO (07:27)
[2025-03-05] MEDS: ZINC 50 MG PO (07:28)
[2025-03-05] MEDS: SENOKOT-S 2 TABLET PO (07:29)
[2025-03-05] MEDS: THERAGRAN 1 TABLET PO (07:29)
[2025-03-05] MEDS: OSCAL CAL 500 1000 MG PO ×2 (07:29→20:39)
[2025-03-05] MEDS: MIRALAX PO (07:36)
[2025-03-05 07:42] VITALS: BP 127/82
[2025-03-05 08:42] LABS: Blood Urea Nitrogen 21 mg/dl (7-17); Calcium 7.2 mg/dl (8.4-10.2); Carbon Dioxide 28 mmol/L (22-30); Chloride 97 mmol/L (98-107); Estimated Creatinine Clearance 66 ml/min; Glucose 180 mg/dl (70-99); Potassium 4.8 mmol/L (3.5-5.1); Sodium 131 mmol/L (135-145); eGFR > 60.00
--- NOTE | 2025-03-05 08:47 | W.PN.HOSP.TC ---
Addendum entered and electronically signed by Musa Hamilton MD 03/05/25 14:04:
Discussed with you plan on-call trauma surgeon and orthopedic surgeon
In light of patient recurrent pulmonary problems patient is not a surgical candidate in any regard. Patient will likely be still a candidate later down the road once stable from cardiopulmonary risk factor
I have discussed this with patient's spouse who was disappointed with the decision but understands the risk
I have discussed the potential need for going up on pain medication, will increase breakthrough morphine to 20 mg every 4 hour
[facility] orthopedic surgery also recommended potentially a splint placement, have discussed with on-call orthopedic surgeon here to recommend any specific splint if warranted
Patient spouse have questioned if in light of x-ray showing distal end overriding somewhat on proximal end, a traction reduction would be appropriate as patient having significant pain, I have asked spouse to discuss this with orthopedic surgeon
when they evaluate today.
Addendum entered and electronically signed by Musa Hamilton MD 03/05/25 09:12:
Ortho ear nose throat surgeon recommended repeat imaging
left arm humerus xr 2 view ordered - if patient unable to get the images - change to one view portable
will contact [facility] for transfer candidacy after that.
Original Note:
Today's Communication/Plan
-
see note
Assessment / Plan
Assessment / Plan
MR T spine
Redemonstration of extensive osseous metastatic disease. Extraosseous malignant soft tissue in the spinal canal from T7 through T9 and retropulsion of the chronic pathologic compression fractures of T7 and T8 with secondary severe spinal canal
stenosis at T8 to moderate spinal canal stenosis at T7. No new pathologic compression fracture. Similar appearance of the thoracic spine and lumbar spine compared to previous MRI examinations from 01/14/2025 and 01/13/2025.

1. Acute Hypoxic Respiratory Failure - Improving
Small Bilateral Pleural Effusions
-Patient noted to be hypoxic requiring 6 L oxygen through nasal cannula in ER
-proBNP not significantly elevated. Echocardiogram was a poor study although no overt concern of heart failure
-Recent CT chest PE on 02/16 was negative for any VTE.
-small bilateral pleural effusion on imaging
-Further Lasix dosing on hold.
-wean off o2 as possible
2. Hypocalcemia
-Corrected calcium of low for albumin.
-Patient was provided IV calcium followed by initiation of oral calcium bicarbonate pills
-PTH/vitamin D level not indicative of any abnormality
-Chemo? related. Nephro following and help appreciated
3. Acute hyponatremia
-Suspected multifactorial from malignancy, pain and hypervolemia related
-maintained on 40 oz fluid restriction
-Na level down again 130
-maintain on oral lasix 20mg/d
4. Recent Fall with left humerus fracture
Pathologic fracture left coracoid process
Nondisplaced fracture lateral left ninth rib
Thoracic spine compression deformities of indeterminate acuity
-MRI T-spine finding as above
-neurosurgery evaluated and recommended surgical correction only if patient have significant weakness developing
- discussed case with on-call [facility] orthopedic surgeon who requested patient to follow-up with Dr. Chris Kunz for further management of left humeral fracture.
-TLSO brace for patient to use per neurosurgery recommendation
-Patient also started on IV Decadron currently on 6 mg every 8h
-Patient hesitant to take home regular dose of morphine 30 mg due to concern of encephalopathy, cutting down to 15 mg q4h yesterday
-Overnight concern of fracture more displaced , i can feel likely proximal end rotated more outward OR distal end overriding proximal end
-neuro-vascual symptoms not present except significant pain. radial pulse present
-Contacted orhtopedic service 2nd time this for an in person evaluation, await response - will need guidance on what is the best imaging modality safe to do
-Will need to transfer patient out to [facility] for further evaluation.
5. Mild toxic encephalopathy - Improved
- From high-dose of narcotics required due to significant pain
- No other ongoing infection issue
6. Non-small cell lung cancer with metastatic disease
- Hematology/oncology following-increase Brigatinib dose to 180 mg day
7. Prolonged QTc
-Suspected at least partly from hypocalcemia
-Avoid/minimize QTc-prolonging medications
8. Lower extremity swelling
- Secondary to volume overload state
- Echo poor quality although no clear concern of low EF/heart failure
- Lower extremity DVT has been negative
9. Leukocytosis
- suspected steroids use related vs reactive with malignancy
10. Chronic pain and narcotic dependence
Narcotic induced constipation
-Patient is on Morphine 30mg q4h prn sev pain, morphine 15mg q12h pain.
-had BM with oral laxatives, continue on BM regimen
Anemia of Chronic Disease
High ALP -Likely related to bone metastases
Essential Hypertension
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
DVT Prophylaxis: Lovenox
Code Status: Full Code
Total time spent : 52 mins
Anticipated Discharge: > 48 hours
Subjective/Interval History
-
Date of Service: March 05, 2025
patient in repeat significant pain today of the left arm
at bedside and concerned fracture more displaced
afebrile overnight
Objective Data
-
Labs:
Laboratory Results
03/05/25
07:22
Sodium 131 L
Potassium 4.8
Chloride 97 L
Carbon Dioxide 28
BUN 21 H
Creatinine 0.4 L
Glucose 180 H
Calcium 7.2 L
Vital Signs:
Vital Signs
Temp Pulse Resp BP Pulse Ox
97.5 F 93 16 127/82 97
03/05/25 07:42 03/05/25 07:42 03/05/25 07:42 03/05/25 07:42 03/05/25 07:42
I&O
03/04/25 03/05/25 03/06/25
06:59 06:59 06:59
Intake Total 780 / 780 960 / 960
Output Total 200 / 200
Balance 580 / 580 960 / 960
Review of Systems
-
Respiratory: Reports No Symptoms
Cardiac: Reports No Symptoms
Abdomen/GI: Reports No Symptoms
Physical Exam
-
General: No Apparent Distress and Comfortable
HEENT: Oxygen (NC)
GI: Soft and Nontender
Musculoskeletal: Other (TLSO brace in place)
Neuro: Awake, Alert, Oriented, No Motor Deficits and Nonfocal/Grossly Intact
Psych: Calm
[2025-03-05] MEDS: DILAUDID 0.5 MG IV (09:19)
[2025-03-05] MEDS: MORPHINE SULFATE 15 MG PO (10:39)
[2025-03-05 15:25] VITALS: BP 110/68
[2025-03-05] MEDS: LOVENOX 40 MG SC (18:00)
[2025-03-05] MEDS: NON-FORMULARY ITEM 180 MG PO (18:01)
--- NOTE | 2025-03-05 18:03 | CON.ORTHO ---
Consultation
-
Date/Time Consultation Requested: 03/05/2025
Date/Time Consultation Performed: 03/05/2025 515 PM
Consultation - Orthopedics
History
HPI: 69-year-old female history of metastatic lung cancer presented to the emergency department with complaints of shortness of breath and ambulatory dysfunction. She was ultimately admitted to the medical service. She had a history of recent fall
with left proximal humerus fracture presumed to be pathologic in nature. Orthopedics was consulted for further evaluation and treatment. Patient's was at bedside this evening. They report that they were seen on an outpatient basis by
[facility] evaluated for left proximal humerus fracture. They are advised that this may be amenable to intramedullary nail fixation but were advised to consider further consultation with orthopedic display specialist. More recently
patient felt quite weak, short of breath prompting her presentation to the emergency department. Patient reported continued pain with motion left upper extremity. She has been in a sling but does feel significant pain with any motion.
Allergies / Home Medications
Past medical history: Metastatic carcinoma, hypertension
Past surgical history: Left total hip arthroplasty
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
Family history: Not pertinent
Allergy/AdvReac Type Severity Reaction Status Date / Time
No Known Allergies Allergy Verified 02/25/25 05:17
�Medication �Instructions �Recorded
ascorbic acid (vitamin C) 500 mg 500 mg PO DAILY Supplement 01/13/25
tablet (Vitamin C)
glucosamine [id number] 1 tab PO DAILY Supplement 01/13/25
elke 1,500 mg-400 unit-100 mg
tablet (Osteo Bi-Flex (5-Loxin))
lisinopril 5 mg tablet 5 mg PO DAILY Blood Pressure 01/13/25
morphine 15 mg tablet,extended 15 mg PO Q12H Pain 01/13/25
release
morphine 30 mg immediate release 30 mg PO Q4HPRN PRN severe pain 01/13/25
tablet
polyethylene glycol 3350 17 gram 17 g PO DAILYPRN PRN constipation 01/13/25
oral powder packet (Miralax)
prochlorperazine maleate 5 mg 5 mg PO TIDPRN PRN nausea 01/13/25
tablet
therapeutic multivitamin 1 tab PO DAILY Supplement 01/13/25
vitamin A-vitamin C-vit E-min 1 tab PO DAILY Supplement 01/13/25
tablet
zinc sulfate 50 mg zinc (220 mg) 50 mg PO DAILY Supplement 01/13/25
tablet
pantoprazole 40 mg tablet,delayed 40 mg PO DAILY #30 tabs 01/17/25
release
acetaminophen 500 mg tablet 500 mg PO Q6HPRN PRN mild pain 02/25/25
(Tylenol Extra Strength)
berberine chloride 500 mg capsule 375 mg PO DAILY Supplement 02/25/25
brigatinib 90 mg (7)-180 mg (23) 0 ea PO PER PKG DIR Cancer 02/25/25
tablets in a dose pack
calcium carbonate 1,000 mg PO BID Supplement 02/25/25
cyanocobalamin (vitamin B-12) 1,000 mcg PO DAILY Supplement 02/25/25
1,000 mcg tablet
denosumab 60 mg/mL subcutaneous 60 mg SC [id number] 02/25/25
syringe (Prolia)
iodine (kelp) 1 tab PO DAILY Supplement 02/25/25
loperamide 2 mg tablet 2 mg PO BIDPRN PRN diarrhea 02/25/25
ondansetron 4 mg disintegrating 4 mg PO Q6HPRN PRN nausea 02/25/25
tablet
Vital Signs / Lab Results
Temp Pulse Resp BP Pulse Ox
97.9 F 97 14 110/68 99
03/05/25 15:25 03/05/25 15:25 03/05/25 15:25 03/05/25 15:25 03/05/25 15:25
03/04/25 05:00
03/05/25 07:22
10 point review systems reviewed and negative unless otherwise stated
General: Somewhat ill in appearance, somewhat uncomfortable appearing, somewhat cachectic laying supine in bed
Musculoskeletal left upper extremity
Skin intact, no erythema, moderate swelling noted left shoulder and arm
Left sling is in sling
Tenderness palpation over proximal humerus
No gross motor or sensory deficits distally
Diagnostic studies
X-rays left humerus taken today as well as previous chest x-rays were reviewed that show a spiral/oblique proximal wrist fracture with the anterior apex angulation and shortening
Assessment / Plan
69-year-old female metastatic carcinoma with left proximal humerus fracture presumed to be pathologic in nature. I had a very long detailed discussion with the patient as well as her regarding diagnosis and treatment options. 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 I did explain to them that there been discussion earlier today with medical service and the [facility]. She was reported to not be a surgical candidate currently given her somewhat tenuous medical and
pulmonary status. Her current complain is pain with any motino. We discussed a variety of immobilization options. We discussed a sling, discussed sling with abduction pillow to help prevent internal rotation of the fracture, we discussed the
coaptation splint we also discussed a Malave style fracture brace. After discussion patient would like to hopefully be fitted for a Malave style fracture brace to help stabilize her fracture of left proximal humerus. Did advise her that this
might not limit her pain but hopefully can stabilize this somewhat to prevent pain from motion. I explained to her that I would recommend she follow-up after medical optimization with orthopedic display specialist. She was given a variety of
names both the [facility], [facility] orthopedics as well as [facility]. Will try to coordinate with the primary team getting her fitted with orthotic department. No acute surgical orthopedic intervention recommended. All questions were
addressed and answered. Please reach out with any questions or concerns. Would maintain nonweightbearing status left upper extremity in sling currently and remain nonweightbearing after fitted for brace.
[2025-03-05] MEDS: SENNA SYRUP 8.8 MG PO (20:40)
[2025-03-06 00:02] VITALS: BP 134/86
[2025-03-06] MEDS: ROXANOL ORAL CONCENTRATE 20 MG PO (04:05)
[2025-03-06] MEDS: DECADRON 6 MG IV ×3 (04:07→20:13)
[2025-03-06 07:30] VITALS: BP 127/76
[2025-03-06] MEDS: OSCAL CAL 500 1000 MG PO ×2 (09:01→20:13)
[2025-03-06] MEDS: LASIX 20 MG PO (09:01)
[2025-03-06] MEDS: VITAMIN B-12 1000 MCG PO (09:01)
[2025-03-06] MEDS: MS CONTIN (EXTENDED RELEASE) 15 MG PO ×2 (09:01→20:12)
[2025-03-06] MEDS: ZESTRIL 5 MG PO (09:01)
[2025-03-06] MEDS: THERAGRAN 1 TABLET PO (09:01)
[2025-03-06] MEDS: VITAMIN C 500 MG PO (09:01)
[2025-03-06] MEDS: ROCALTROL 0.25 MCG PO (09:02)
[2025-03-06] MEDS: PROTONIX 40 MG PO (09:02)
[2025-03-06] MEDS: ZINC 50 MG PO (09:02)
[2025-03-06] MEDS: SENOKOT-S 2 TABLET PO (09:02)
[2025-03-06] MEDS: SENNA SYRUP PO (09:05)
[2025-03-06] MEDS: MIRALAX PO (09:05)
--- NOTE | 2025-03-06 11:11 | W.PN.NEPH.PH ---
Today's Communication / Plan
-
Increase protein in diet
Continue fluid restrict
Assessment/Plan
-
Impression:
Hyponatremia
Hypocalcemia
Hypoxic respiratory failure on presentation with associated bilateral pleural effusion
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
Hypoalbuminemia/edema
Hypertension
Recent fall with subsequent left humerus fracture
HFpEF 55%
Plan:
follow BMP
hold lasix still,
continue calcium 1gm BID, but will add calcitriol 0.25 mcg daily to assist in hypercalcemia manage
Fluid restrict 48 ounces RE hyponatremia which remains stable at 130>131
Discussed to increase protein in her diet
Discussed with her who is a nurse unhairer and is knowledgeable
-
-
Date of Service: March 06, 2025
CC / HPI / ROS
-
Chief Complaint:
Hypocalcemia
Hyponatremia
History of Present Illness:
BP low but stable
Sodium up to 130
Calcium at 7.3
evolving metabolic alkalosis 30
Review of Systems:
Nonoliguric but requiring straight catheterization
c/o dry mouth still
Multiple pains : significant left shoulder
Improved oral intake
Labs
-
Labs:
WBC 12.7 10^3/uL (4.8-10.8) H 03/04/25 05:00
RBC 3.80 10^6/uL (4.20-5.40) L 03/04/25 05:00
Hgb 10.2 g/dL (12.0-16.0) L 03/04/25 05:00
Hct 31.4 % (37.0-47.0) L 03/04/25 05:00
Plt Count 473 10^3/uL (130-400) H 03/04/25 05:00
Sodium 131 mmol/L (135-145) L 03/05/25 07:22
Potassium 4.8 mmol/L (3.5-5.1) 03/05/25 07:22
Chloride 97 mmol/L (98-107) L 03/05/25 07:22
Carbon Dioxide 28 mmol/L (22-30) 03/05/25 07:22
BUN 21 mg/dl (7-17) H 03/05/25 07:22
Creatinine 0.4 mg/dL (0.6-1.0) L 03/05/25 07:22
eGFR > 60.00 03/05/25 07:22
Glucose 180 mg/dl (70-99) H 03/05/25 07:22
Calcium 7.2 mg/dl (8.4-10.2) L 03/05/25 07:22
Phosphorus 2.6 mg/dl (2.5-4.5) 03/04/25 05:00
Rap-M-Fmueinzwwaz Pept 615 pg/ml 02/25/25 05:29
Albumin 2.9 g/dl (3.5-5.0) L 03/04/25 05:00
Physical Exam
-
Vital Signs:
Vital Signs
Temp Pulse Resp BP Pulse Ox
98.0 F 90 18 127/76 97
03/06/25 07:30 03/06/25 07:30 03/06/25 07:30 03/06/25 07:30 03/06/25 07:30
Cardiovascular:: Regular rate and rhythm
Respiratory:: Bilateral: Coarse
Lung Excursion:: Normal
Abdomen:: Nontender and Soft
Bowel Sounds:: Normal
Extremity Edema:: None: Bilateral:
[2025-03-06 12:09] VITALS: BP 142/98; PULSE 95; O2SAT 97
[2025-03-06] MEDS: MORPHINE SULFATE 30 MG PO (12:25)
[2025-03-06 13:02] VITALS: PULSE 95; O2SAT 97
--- NOTE | 2025-03-06 13:31 | W.PN.HOSP.TC ---
Today's Communication/Plan
-
pain medication adjusted
increase narc dose
dispo planning on snf rehab
Assessment / Plan
Assessment / Plan
MR T spine
Redemonstration of extensive osseous metastatic disease. Extraosseous malignant soft tissue in the spinal canal from T7 through T9 and retropulsion of the chronic pathologic compression fractures of T7 and T8 with secondary severe spinal canal
stenosis at T8 to moderate spinal canal stenosis at T7. No new pathologic compression fracture. Similar appearance of the thoracic spine and lumbar spine compared to previous MRI examinations from 01/14/2025 and 01/13/2025.

1. Acute Hypoxic Respiratory Failure - Improving
Small Bilateral Pleural Effusions
-Patient noted to be hypoxic requiring 6 L oxygen through nasal cannula in ER
-proBNP not significantly elevated. Echocardiogram was a poor study although no overt concern of heart failure
-Recent CT chest PE on 02/16 was negative for any VTE.
-small bilateral pleural effusion on imaging
-Provided lasix for last 2 days, hold again , recheck BMP in morning
-wean off o2 as possible
2. Hypocalcemia
-Corrected calcium of low for albumin.
-Patient was provided IV calcium followed by initiation of oral calcium bicarbonate pills
-PTH/vitamin D level not indicative of any abnormality
-Chemo? related. Nephro following and help appreciated
3. Acute hyponatremia - Improvbed
-Suspected multifactorial from malignancy, pain and hypervolemia related
-maintained on 40 oz fluid restriction
-Na level down again 130
4. Recent Fall with left humerus fracture
Pathologic fracture left coracoid process
Nondisplaced fracture lateral left ninth rib
Thoracic spine compression deformities of indeterminate acuity
- MRI T-spine finding as above
- neurosurgery evaluated and recommended surgical correction only if patient have significant weakness developing
- discussed case with on-call [facility] orthopedic surgeon who requested patient to follow-up with Dr. Chris Kunz for further management of left humeral fracture.
- TLSO brace for patient to use per neurosurgery recommendation
- Remains on IV decardron 6mg q8h
- Repeat on x-ray showing beside movement of distal humeral and no complicating factors
- Case was discussed with [facility] orthopedic surgeon who recommended against any immediate surgery with overall patient condition
- [facility] orthopedics evaluated
- Malave brace has been placed for support
5. Mild toxic encephalopathy - Improved
- From high-dose of narcotics required due to significant pain
- No other ongoing infection issue
6. Non-small cell lung cancer with metastatic disease
- Hematology/oncology following-increase Brigatinib dose to 180 mg day
7. Prolonged QTc
-Suspected at least partly from hypocalcemia
-Avoid/minimize QTc-prolonging medications
8. Lower extremity swelling
- Secondary to volume overload state
- Echo poor quality although no clear concern of low EF/heart failure
- Lower extremity DVT has been negative
9. Leukocytosis
- suspected steroids use related vs reactive with malignancy
10. Chronic pain and narcotic dependence
Narcotic induced constipation
-Patient is on Morphine 30mg q4h prn sev pain, morphine 15mg q12h pain.
-patient prefers to manage with senna only, providing
Anemia of Chronic Disease
High ALP -Likely related to bone metastases
Essential Hypertension
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
DVT Prophylaxis: Lovenox
Code Status: Full Code
Anticipated Discharge: 24 - 48 hours
Subjective/Interval History
-
Date of Service: March 06, 2025
Still no good bowel movement yesterday
Patient concerned about pivoting to commode to
Objective Data
-
Vital Signs:
Vital Signs
Temp Pulse Resp BP Pulse Ox
98.0 F 90 18 127/76 97
03/06/25 07:30 03/06/25 07:30 03/06/25 07:30 03/06/25 07:30 03/06/25 07:30
I&O
03/05/25 03/06/25 03/07/25
06:59 06:59 06:59
Intake Total 960 / 960 660 / 660
Balance 960 / 960 660 / 660
Review of Systems
-
Respiratory: Reports No Symptoms
Cardiac: Reports No Symptoms
Abdomen/GI: Reports No Symptoms
Musculoskeletal: Reports Joint Pain
Physical Exam
-
General: No Apparent Distress and Comfortable
HEENT: Oxygen (NC)
Musculoskeletal: Other (TLSO brace in place, left arm splint placed )
Neuro: Awake, Alert, Oriented, No Motor Deficits and Nonfocal/Grossly Intact
Psych: Calm
[2025-03-06 15:29] VITALS: BP 118/83
--- NOTE | 2025-03-06 17:47 | CM ---
Not ready for dc .
Have not located accepting SNF
LM with Tiffanie at [facility].
Spoke with Jamar informed of above.
Will need additional SNF picks .
PLAN To SNf after locate and auth obtained
[2025-03-06] MEDS: LOVENOX 40 MG SC (18:36)
[2025-03-06] MEDS: NON-FORMULARY ITEM 180 MG PO (18:36)
[2025-03-06] MEDS: SENNA SYRUP 8.8 MG PO (20:12)
[2025-03-06 23:42] VITALS: BP 126/86
[2025-03-07] MEDS: MORPHINE SULFATE 30 MG PO (00:55)
[2025-03-07] MEDS: DECADRON 6 MG IV ×3 (05:12→20:59)
[2025-03-07 06:05] VITALS: BMI 23.1
[2025-03-07 06:19] LABS: Blood Urea Nitrogen 22 mg/dl (7-17); Calcium 7.7 mg/dl (8.4-10.2); Carbon Dioxide 29 mmol/L (22-30); Chloride 96 mmol/L (98-107); Estimated Creatinine Clearance 66 ml/min; Glucose 232 mg/dl (70-99); Potassium 4.9 mmol/L (3.5-5.1); Sodium 130 mmol/L (135-145); eGFR > 60.00
[2025-03-07 07:30] VITALS: BP 122/77
[2025-03-07] MEDS: MIRALAX 17 GRAMS PO (08:06)
[2025-03-07] MEDS: VITAMIN B-12 1000 MCG PO (08:07)
[2025-03-07] MEDS: THERAGRAN 1 TABLET PO (08:07)
[2025-03-07] MEDS: OSCAL CAL 500 1000 MG PO ×2 (08:07→20:59)
[2025-03-07] MEDS: SENNA SYRUP 8.8 MG PO ×2 (08:07→20:59)
[2025-03-07] MEDS: VITAMIN C 500 MG PO (08:07)
[2025-03-07] MEDS: PROTONIX 40 MG PO (08:07)
[2025-03-07] MEDS: ZINC 50 MG PO (08:07)
[2025-03-07] MEDS: ZESTRIL 5 MG PO (08:07)
[2025-03-07] MEDS: SENOKOT-S 2 TABLET PO (08:07)
[2025-03-07] MEDS: ROCALTROL 0.25 MCG PO (08:11)
[2025-03-07] MEDS: MS CONTIN (EXTENDED RELEASE) 15 MG PO ×2 (08:11→20:59)
--- NOTE | 2025-03-07 13:33 | W.PN.NEPH.PH ---
Today's Communication / Plan
-
BMP
Assessment/Plan
-
Impression:
Hyponatremia
Hypocalcemia
Hypoxic respiratory failure on presentation with associated bilateral pleural effusion
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
Hypoalbuminemia/edema
Hypertension
Recent fall with subsequent left humerus fracture
HFpEF 55%
Plan:
follow BMP
hold lasix still,
continue calcium 1gm BID, but will add calcitriol 0.25 mcg daily to assist in hypercalcemia manage
Fluid restrict 48 ounces RE hyponatremia which remains stable at 130>131
Discussed to increase protein in her diet
Discussed with her who is a nurse tapper balance wheel screw hole and is knowledgeable
No changes made today
-
-
Date of Service: March 07, 2025
CC / HPI / ROS
-
Chief Complaint:
Hypocalcemia
Hyponatremia
History of Present Illness:
BP low but stable
Sodium up to 130
Calcium improved
evolving metabolic alkalosis 30
Review of Systems:
Nonoliguric but requiring straight catheterization
c/o dry mouth still
Multiple pains : significant left shoulder
Improved oral intake
Labs
-
Labs:
WBC 12.7 10^3/uL (4.8-10.8) H 03/04/25 05:00
RBC 3.80 10^6/uL (4.20-5.40) L 03/04/25 05:00
Hgb 10.2 g/dL (12.0-16.0) L 03/04/25 05:00
Hct 31.4 % (37.0-47.0) L 03/04/25 05:00
Plt Count 473 10^3/uL (130-400) H 03/04/25 05:00
Sodium 130 mmol/L (135-145) L 03/07/25 05:11
Potassium 4.9 mmol/L (3.5-5.1) 03/07/25 05:11
Chloride 96 mmol/L (98-107) L 03/07/25 05:11
Carbon Dioxide 29 mmol/L (22-30) 03/07/25 05:11
BUN 22 mg/dl (7-17) H 03/07/25 05:11
Creatinine 0.5 mg/dL (0.6-1.0) L 03/07/25 05:11
eGFR > 60.00 03/07/25 05:11
Glucose 232 mg/dl (70-99) H 03/07/25 05:11
Calcium 7.7 mg/dl (8.4-10.2) L 03/07/25 05:11
Phosphorus 2.6 mg/dl (2.5-4.5) 03/04/25 05:00
Ahu-S-Cedzvstwwjv Pept 615 pg/ml 02/25/25 05:29
Albumin 2.9 g/dl (3.5-5.0) L 03/04/25 05:00
Physical Exam
-
Vital Signs:
Vital Signs
Temp Pulse Resp BP Pulse Ox
97.8 F 94 18 122/77 98
03/07/25 07:30 03/07/25 07:30 03/07/25 07:30 03/07/25 07:30 03/07/25 07:30
Cardiovascular:: Regular rate and rhythm
Respiratory:: Bilateral: Coarse
Lung Excursion:: Normal
Abdomen:: Nontender and Soft
Bowel Sounds:: Normal
Extremity Edema:: None: Bilateral:
--- NOTE | 2025-03-07 13:35 | W.PN.HOSP.TC ---
Today's Communication/Plan
-
discharge planning for snf rehab
laxatives, may require suppos
Assessment / Plan
Assessment / Plan
MR T spine
Redemonstration of extensive osseous metastatic disease. Extraosseous malignant soft tissue in the spinal canal from T7 through T9 and retropulsion of the chronic pathologic compression fractures of T7 and T8 with secondary severe spinal canal
stenosis at T8 to moderate spinal canal stenosis at T7. No new pathologic compression fracture. Similar appearance of the thoracic spine and lumbar spine compared to previous MRI examinations from 01/14/2025 and 01/13/2025.

1. Acute Hypoxic Respiratory Failure - Improving
Small Bilateral Pleural Effusions
-Patient noted to be hypoxic requiring 6 L oxygen through nasal cannula in ER
-proBNP not significantly elevated. Echocardiogram was a poor study although no overt concern of heart failure
-Recent CT chest PE on 02/16 was negative for any VTE.
-small bilateral pleural effusion on imaging
-weaned off of o2 at this point. monitor
2. Hypocalcemia
-Corrected calcium of low for albumin.
-Patient was provided IV calcium followed by initiation of oral calcium bicarbonate pills
-PTH/vitamin D level not indicative of any abnormality
-Chemo? related. Nephro following and help appreciated
3. Acute hyponatremia - Improvbed
-Suspected multifactorial from malignancy, pain and hypervolemia related
- Patient requesting fluid tubularization, already has been liberalized to 48oz
-Na level down again 130
4. Recent Fall with left humerus fracture
Pathologic fracture left coracoid process
Nondisplaced fracture lateral left ninth rib
Thoracic spine compression deformities of indeterminate acuity
- MRI T-spine finding as above
- neurosurgery evaluated and recommended surgical correction only if patient have significant weakness developing
- Dr. Jones discussed case with on-call [facility] orthopedic surgeon who requested patient to follow-up with Dr. Chris Kunz for further management of left humeral fracture.
- TLSO brace for patient to use per neurosurgery recommendation
- Remains on IV Decadron 6mg q8h
- Repeat on x-ray showing beside movement of distal humeral and no complicating factors
- Case was discussed with [facility] orthopedic surgeon who recommended against any immediate surgery with overall patient condition
- [facility] orthopedics evaluated
- Malave brace has been placed for support, pain down from 10 to 6 today
5. Mild toxic encephalopathy - Improved
- From high-dose of narcotics required due to significant pain
- No other ongoing infection issue
6. Non-small cell lung cancer with metastatic disease
- Hematology/oncology following-increase Brigatinib dose to 180 mg day
7. Prolonged QTc
-Suspected at least partly from hypocalcemia
-Avoid/minimize QTc-prolonging medications
8. Lower extremity swelling
- Secondary to volume overload state
- Echo poor quality although no clear concern of low EF/heart failure
- Lower extremity DVT has been negative
9. Leukocytosis
- suspected steroids use related vs reactive with malignancy
10. Chronic pain and narcotic dependence
Narcotic induced constipation
-Patient is on Morphine 30mg q4h prn sev pain, morphine 15mg q12h pain.
-patient prefers to manage with senna only, took miralax as well today
Anemia of Chronic Disease
High ALP -Likely related to bone metastases
Essential Hypertension
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
DVT Prophylaxis: Lovenox
Code Status: Full Code
Anticipated Discharge: Today
Subjective/Interval History
-
Date of Service: March 07, 2025
Resting comfortably in chair
pain is better controlled with splint
no n/v
Objective Data
-
Labs:
Laboratory Results
03/07/25
05:11
Sodium 130 L
Potassium 4.9
Chloride 96 L
Carbon Dioxide 29
BUN 22 H
Creatinine 0.5 L
Glucose 232 H
Calcium 7.7 L
Vital Signs:
Vital Signs
Temp Pulse Resp BP Pulse Ox
97.8 F 94 18 122/77 98
03/07/25 07:30 03/07/25 07:30 03/07/25 07:30 03/07/25 07:30 03/07/25 07:30
I&O
03/06/25 03/07/25 03/08/25
06:59 06:59 06:59
Intake Total 660 / 660 120 / 120
Output Total 225 / 225
Balance 660 / 660 -105 / -105
Review of Systems
-
Respiratory: Reports No Symptoms
Cardiac: Reports No Symptoms
Abdomen/GI: Reports No Symptoms
Physical Exam
-
General: No Apparent Distress and Comfortable
HEENT: Negative Oxygen (NC)
Musculoskeletal: Other (TLSO brace in place, left arm splint placed )
Neuro: Awake, Alert, Oriented, No Motor Deficits and Nonfocal/Grossly Intact
Psych: Calm
[2025-03-07] MEDS: ZOFRAN ODT (ORALLY DISINTEGRATING) 4 MG PO (14:31)
[2025-03-07 15:30] VITALS: BP 110/62
[2025-03-07] MEDS: LOVENOX 40 MG SC (17:11)
[2025-03-07] MEDS: NON-FORMULARY ITEM 180 MG PO (17:12)
[2025-03-07 23:00] VITALS: BP 116/75
[2025-03-08] MEDS: MORPHINE SULFATE 30 MG PO (04:15)
[2025-03-08] MEDS: DECADRON 6 MG IV ×3 (04:16→20:03)
[2025-03-08 06:00] VITALS: BMI 22.2
[2025-03-08 06:40] LABS: Blood Urea Nitrogen 21 mg/dl (7-17); Calcium 7.1 mg/dl (8.4-10.2); Carbon Dioxide 28 mmol/L (22-30); Chloride 95 mmol/L (98-107); Estimated Creatinine Clearance 66 ml/min; Glucose 258 mg/dl (70-99); Sodium 129 mmol/L (135-145); eGFR > 60.00
[2025-03-08 07:45] VITALS: BP 127/75
[2025-03-08] MEDS: MS CONTIN (EXTENDED RELEASE) 15 MG PO ×2 (08:54→20:02)
[2025-03-08] MEDS: ZESTRIL 5 MG PO (09:00)
[2025-03-08] MEDS: ROCALTROL 0.25 MCG PO (09:01)
[2025-03-08] MEDS: VITAMIN C 500 MG PO (09:01)
[2025-03-08] MEDS: ZINC 50 MG PO (09:01)
[2025-03-08] MEDS: VITAMIN B-12 1000 MCG PO (09:01)
[2025-03-08] MEDS: THERAGRAN 1 TABLET PO (09:01)
[2025-03-08] MEDS: OSCAL CAL 500 1000 MG PO ×2 (09:01→20:03)
[2025-03-08] MEDS: PROTONIX 40 MG PO (09:01)
[2025-03-08] MEDS: MIRALAX PO ×2 (09:02→09:13)
[2025-03-08] MEDS: SENOKOT-S 2 TABLET PO (09:02)
[2025-03-08] MEDS: SENNA SYRUP PO ×2 (09:02→09:13)
[2025-03-08 09:04] VITALS: BP 117/77; PULSE 98; O2SAT 98
--- NOTE | 2025-03-08 13:13 | W.PN.HOSP.TC ---
Today's Communication/Plan
-
Medically appropriate for discharge
Continue current care plan
Monitor sodiumg
Assessment / Plan
Assessment / Plan
MR T spine
Redemonstration of extensive osseous metastatic disease. Extraosseous malignant soft tissue in the spinal canal from T7 through T9 and retropulsion of the chronic pathologic compression fractures of T7 and T8 with secondary severe spinal canal
stenosis at T8 to moderate spinal canal stenosis at T7. No new pathologic compression fracture. Similar appearance of the thoracic spine and lumbar spine compared to previous MRI examinations from 01/14/2025 and 01/13/2025.

1. Acute Hypoxic Respiratory Failure - Improving
Small Bilateral Pleural Effusions
-Patient noted to be hypoxic requiring 6 L oxygen through nasal cannula in ER
-proBNP not significantly elevated. Echocardiogram was a poor study although no overt concern of heart failure
-Recent CT chest PE on 02/16 was negative for any VTE.
-small bilateral pleural effusion on imaging
-weaned off of o2 at this point. monitor
2. Hypocalcemia
-Corrected calcium of low for albumin.
-Patient was provided IV calcium followed by initiation of oral calcium bicarbonate pills
-PTH/vitamin D level not indicative of any abnormality
-Chemo? related. Nephro following and help appreciated
3. Acute hyponatremia
-Suspected multifactorial from malignancy, pain and hypervolemia related
-Na level down again 129, patient questioning for further fluid liberalization, continue for 48 hours now. May require further restriction if not improved actually
4. Recent Fall with left humerus fracture
Pathologic fracture left coracoid process
Nondisplaced fracture lateral left ninth rib
Thoracic spine compression deformities of indeterminate acuity
- MRI T-spine finding as above
- neurosurgery evaluated and recommended surgical correction only if patient have significant weakness developing
- Dr. Jones discussed case with on-call [facility] orthopedic surgeon who requested patient to follow-up with Dr. Chris Kunz for further management of left humeral fracture.
- TLSO brace for patient to use per neurosurgery recommendation
- Remains on IV Decadron 6mg q8h
- Repeat on x-ray showing beside movement of distal humeral and no complicating factors
- Case was discussed with [facility] orthopedic surgeon who recommended against any immediate surgery with overall patient condition
- [facility] orthopedics evaluated
- Malave brace has been placed for support, pain down from 10 to 6 today
5. Mild toxic encephalopathy - Improved
- From high-dose of narcotics required due to significant pain
- No other ongoing infection issue
6. Non-small cell lung cancer with metastatic disease
- Hematology/oncology following-increase Brigatinib dose to 180 mg day
7. Prolonged QTc
-Suspected at least partly from hypocalcemia
-Avoid/minimize QTc-prolonging medications
8. Lower extremity swelling
- Secondary to volume overload state
- Echo poor quality although no clear concern of low EF/heart failure
- Lower extremity DVT has been negative
9. Leukocytosis
- suspected steroids use related vs reactive with malignancy
10. Chronic pain and narcotic dependence
Narcotic induced constipation
-Patient is on Morphine 30mg q4h prn sev pain, morphine 15mg q12h pain.
- Patient had good bowel movement today with senna/MiraLAX
Anemia of Chronic Disease
High ALP -Likely related to bone metastases
Essential Hypertension
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
DVT Prophylaxis: Lovenox
Code Status: Full Code
Anticipated Discharge: Today
Subjective/Interval History
-
Date of Service: March 08, 2025
Patient pain is still there but manageable at times
Able to work with physical therapy
Objective Data
-
Labs:
Laboratory Results
03/08/25
05:14
Sodium 129 L
Potassium 5.0
Chloride 95 L
Carbon Dioxide 28
BUN 21 H
Creatinine 0.4 L
Glucose 258 H
Calcium 7.1 L
Vital Signs:
Vital Signs
Temp Pulse Resp BP Pulse Ox
98.6 F 61 16 150/81 97
03/08/25 07:45 03/08/25 09:00 03/08/25 07:45 03/08/25 09:00 03/08/25 11:00
I&O
03/07/25 03/08/25 03/09/25
06:59 06:59 06:59
Intake Total 120 / 120 900 / 900
Output Total 225 / 225 400 / 400
Balance -105 / -105 500 / 500
Review of Systems
-
Respiratory: Reports No Symptoms
Cardiac: Reports No Symptoms
Abdomen/GI: Reports No Symptoms
Physical Exam
-
General: No Apparent Distress and Comfortable
HEENT: Negative Oxygen (NC)
Musculoskeletal: Other (TLSO brace in place, left arm splint placed )
Neuro: Awake, Alert, Oriented, No Motor Deficits and Nonfocal/Grossly Intact
Psych: Calm
--- NOTE | 2025-03-08 13:35 | W.PN.NEPH.PH ---
Today's Communication / Plan
-
Fluid restrict
Assessment/Plan
-
Impression:
Hyponatremia
Hypocalcemia
Hypoxic respiratory failure on presentation with associated bilateral pleural effusion
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
Hypoalbuminemia/edema
Hypertension
Recent fall with subsequent left humerus fracture
HFpEF 55%
Plan:
follow BMP
hold lasix still,
continue calcium 1gm BID, but will add calcitriol 0.25 mcg daily to assist in hypercalcemia manage
Fluid restrict 48 ounces RE hyponatremia which remains stable at 130>131
Discussed to increase protein in her diet
Discussed with her who is a nurse event coordinator marketing and sales and is knowledgeable
No changes made today
-
-
Date of Service: March 08, 2025
CC / HPI / ROS
-
Chief Complaint:
Hypocalcemia
Hyponatremia
History of Present Illness:
BP low but stable
Sodium up to 130
Calcium improved
evolving metabolic alkalosis 30
Review of Systems:
Nonoliguric but requiring straight catheterization
c/o dry mouth still
Multiple pains : significant left shoulder
Improved oral intake
Labs
-
Labs:
WBC 12.7 10^3/uL (4.8-10.8) H 03/04/25 05:00
RBC 3.80 10^6/uL (4.20-5.40) L 03/04/25 05:00
Hgb 10.2 g/dL (12.0-16.0) L 03/04/25 05:00
Hct 31.4 % (37.0-47.0) L 03/04/25 05:00
Plt Count 473 10^3/uL (130-400) H 03/04/25 05:00
Sodium 129 mmol/L (135-145) L 03/08/25 05:14
Potassium 5.0 mmol/L (3.5-5.1) 03/08/25 05:14
Chloride 95 mmol/L (98-107) L 03/08/25 05:14
Carbon Dioxide 28 mmol/L (22-30) 03/08/25 05:14
BUN 21 mg/dl (7-17) H 03/08/25 05:14
Creatinine 0.4 mg/dL (0.6-1.0) L 03/08/25 05:14
eGFR > 60.00 03/08/25 05:14
Glucose 258 mg/dl (70-99) H 03/08/25 05:14
Calcium 7.1 mg/dl (8.4-10.2) L 03/08/25 05:14
Phosphorus 2.6 mg/dl (2.5-4.5) 03/04/25 05:00
Vgl-X-Vlryzopoumr Pept 615 pg/ml 02/25/25 05:29
Albumin 2.9 g/dl (3.5-5.0) L 03/04/25 05:00
Physical Exam
-
Vital Signs:
Vital Signs
Temp Pulse Resp BP Pulse Ox
98.6 F 61 16 150/81 97
03/08/25 07:45 03/08/25 09:00 03/08/25 07:45 03/08/25 09:00 03/08/25 11:00
Cardiovascular:: Regular rate and rhythm
Respiratory:: Bilateral: Coarse
Lung Excursion:: Normal
Abdomen:: Nontender and Soft
Bowel Sounds:: Normal
Extremity Edema:: None: Bilateral:
[2025-03-08 15:50] VITALS: BP 103/66
[2025-03-08] MEDS: LOVENOX 40 MG SC (17:18)
[2025-03-08] MEDS: NON-FORMULARY ITEM 180 MG PO (17:19)
[2025-03-08] MEDS: ZOFRAN ODT (ORALLY DISINTEGRATING) 4 MG PO (20:01)
[2025-03-08] MEDS: SENNA SYRUP 8.8 MG PO (20:02)
[2025-03-08 23:00] VITALS: BP 118/74
[2025-03-09] MEDS: DECADRON 6 MG IV ×3 (04:01→22:02)
[2025-03-09 06:00] VITALS: BMI 21.8
[2025-03-09 07:05] LABS: Blood Urea Nitrogen 19 mg/dl (7-17); Calcium 7.3 mg/dl (8.4-10.2); Carbon Dioxide 25 mmol/L (22-30); Chloride 96 mmol/L (98-107); Estimated Creatinine Clearance 66 ml/min; Glucose 243 mg/dl (70-99); Potassium 4.7 mmol/L (3.5-5.1); Sodium 130 mmol/L (135-145); eGFR > 60.00
[2025-03-09 07:41] LABS: Hematocrit 32.3 % (37.0-47.0); Hemoglobin 10.7 g/dL (12.0-16.0); Mean Corp Hgb Conc. 33.1 g/dL (33.0-37.0); Mean Corpuscular Hgb 26.7 pg (27.0-31.0); Mean Corpuscular Volume 80.5 fL (81.0-99.0); Mean Platelet Volume 10.4 fL (7.4-10.4); Platelet Count 361 10^3/uL (130-400); Red Blood Cell Count 4.01 10^6/uL (4.20-5.40); Red Cell Dist. Width 18.8 % (11.5-14.5); White Blood Cell Count 12.4 10^3/uL (4.8-10.8)
[2025-03-09 07:44] VITALS: BP 146/98
--- NOTE | 2025-03-09 08:15 | W.PN.HOSP.TC ---
Today's Communication/Plan
-
Placement pending
Assessment / Plan
Assessment / Plan
Physical Exam
General: No Apparent Distress and Comfortable
HEENT: Negative Oxygen (NC)
Musculoskeletal: Other (TLSO brace in place, left arm splint placed )
Neuro: Awake, Alert, Oriented, No Motor Deficits and Nonfocal/Grossly Intact
Psych: Calm

MR T spine
Redemonstration of extensive osseous metastatic disease. Extraosseous malignant soft tissue in the spinal canal from T7 through T9 and retropulsion of the chronic pathologic compression fractures of T7 and T8 with secondary severe spinal canal
stenosis at T8 to moderate spinal canal stenosis at T7. No new pathologic compression fracture. Similar appearance of the thoracic spine and lumbar spine compared to previous MRI examinations from 01/14/2025 and 01/13/2025.

1. Acute Hypoxic Respiratory Failure - Improving
Small Bilateral Pleural Effusions
-Patient noted to be hypoxic requiring 6 L oxygen through nasal cannula in ER
-proBNP not significantly elevated. Echocardiogram was a poor study although no overt concern of heart failure
-Recent CT chest PE on 02/16 was negative for any VTE.
-small bilateral pleural effusion on imaging
-weaned off of o2 at this point. monitor
2. Hypocalcemia
-Corrected calcium of low for albumin.
-Patient was provided IV calcium followed by initiation of oral calcium bicarbonate pills
-PTH/vitamin D level not indicative of any abnormality
-Chemo? related. Nephro following and help appreciated
3. Acute hyponatremia
-Suspected multifactorial from malignancy, pain and hypervolemia related
-Continue PO fluid restriction
4. Recent Fall with left humerus fracture
Pathologic fracture left coracoid process
Nondisplaced fracture lateral left ninth rib
Thoracic spine compression deformities of indeterminate acuity
- MRI T-spine finding as above
- neurosurgery evaluated and recommended surgical correction only if patient have significant weakness developing
- I discussed case with on-call [facility] orthopedic surgeon who requested patient to follow-up with Dr. Chris Kunz for further management of left humeral fracture.
- TLSO brace for patient to use per neurosurgery recommendation
- Remains on IV Decadron 6mg q8h --> decrease frequency to Q12H
- Repeat on x-ray showing beside movement of distal humeral and no complicating factors
- Case was discussed with [facility] orthopedic surgeon who recommended against any immediate surgery with overall patient condition
- [facility] orthopedics evaluated
- Malave brace had been placed for support, pain has improved significantly
5. Mild toxic encephalopathy - Improved
- From high-dose of narcotics required due to significant pain
- No other ongoing infection issue
6. Non-small cell lung cancer with metastatic disease
- Hematology/oncology following-increase Brigatinib dose to 180 mg day
7. Prolonged QTc
-Suspected at least partly from hypocalcemia
-Avoid/minimize QTc-prolonging medications
8. Lower extremity swelling
- Secondary to volume overload state
- Echo poor quality although no clear concern of low EF/heart failure
- Lower extremity DVT has been negative
9. Leukocytosis
- suspected steroids use related vs reactive with malignancy
10. Chronic pain and narcotic dependence
Narcotic induced constipation
-Patient is on Morphine 30mg q4h prn sev pain, morphine 15mg q12h pain.
- Patient had good bowel movement today with senna/MiraLAX
Anemia of Chronic Disease
High ALP -Likely related to bone metastases
Essential Hypertension
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
DVT Prophylaxis: Lovenox
Code Status: Full Code
DISPOSITION: Per case management communication this morning, they have not found SNF for her yet -- resent referrals and patient will need auth
On 03/09/25, I spoke to both patient and her in the patient's room; all questions and concerns were answered to satisfaction.
Anticipated Discharge: 24 - 48 hours
Subjective/Interval History
-
Date of Service: March 09, 2025
Patient was seen and examined. She denied any new symptoms or complaints.
Objective Data
-
Labs:
Laboratory Results
03/09/25
05:10
WBC 12.4 H
Hgb 10.7 L
Hct 32.3 L
Plt Count 361 D
Sodium 130 L
Potassium 4.7
Chloride 96 L
Carbon Dioxide 25
BUN 19 H
Creatinine 0.4 L
Glucose 243 H
Calcium 7.3 L
Vital Signs:
Vital Signs
Temp Pulse Resp BP Pulse Ox
97.9 F 107 17 146/98 96
03/09/25 07:44 03/09/25 07:44 03/09/25 07:44 03/09/25 07:44 03/09/25 07:44
I&O
03/08/25 03/09/25 03/10/25
06:59 06:59 06:59
Intake Total 900 / 900
Output Total 400 / 400 380 / 380
Balance 500 / 500 -380 / -380
[2025-03-09] MEDS: MS CONTIN (EXTENDED RELEASE) 15 MG PO ×2 (08:34→21:50)
[2025-03-09] MEDS: PROTONIX 40 MG PO (08:34)
[2025-03-09] MEDS: ROCALTROL 0.25 MCG PO (08:34)
[2025-03-09] MEDS: THERAGRAN 1 TABLET PO (08:34)
[2025-03-09] MEDS: VITAMIN B-12 1000 MCG PO (08:39)
[2025-03-09] MEDS: ZINC 50 MG PO (08:39)
[2025-03-09] MEDS: MIRALAX 17 GRAMS PO (08:40)
[2025-03-09] MEDS: SENOKOT-S 2 TABLET PO (08:40)
[2025-03-09] MEDS: ZESTRIL 5 MG PO (08:40)
[2025-03-09] MEDS: SENNA SYRUP 8.8 MG PO ×2 (08:40→21:51)
[2025-03-09] MEDS: OSCAL CAL 500 1000 MG PO ×2 (08:40→21:50)
[2025-03-09] MEDS: VITAMIN C 500 MG PO (08:41)
--- NOTE | 2025-03-09 09:42 | CM ---
Have not found accepting SNF.
PT indicated SNF . OT requested updated eval.
Resent all referral to SNF with updated PT evals.
Will need auth .
Spoke with Jamar informed of above.
PLAN To SNf after locate and auth obtained
--- NOTE | 2025-03-09 12:16 | W.PN.NEPH.PH ---
Today's Communication / Plan
-
Check magnesium
Assessment/Plan
-
Impression:
Hyponatremia
Hypocalcemia
Hypoxic respiratory failure on presentation with associated bilateral pleural effusion
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
Hypoalbuminemia/edema
Hypertension
Recent fall with subsequent left humerus fracture
HFpEF 55%
Plan:
follow BMP
hold lasix still, if magnesium is in normal range tomorrow will start Lasix 10 mg daily
continue calcium 1gm BID, calcitriol 0.25 mcg daily to assist in hypercalcemia manage
Fluid restrict 48 ounces RE hyponatremia which remains stable
-
-
Date of Service: March 09, 2025
CC / HPI / ROS
-
Chief Complaint:
Hypocalcemia
Hyponatremia
History of Present Illness:
BP low but stable
Sodium up to 130 stable
Calcium stable at 7.3
Review of Systems:
No chest pain or shortness of breath
Multiple pains : significant left shoulder
Improved oral intake
Labs
-
Labs:
WBC 12.4 10^3/uL (4.8-10.8) H 03/09/25 05:10
RBC 4.01 10^6/uL (4.20-5.40) L 03/09/25 05:10
Hgb 10.7 g/dL (12.0-16.0) L 03/09/25 05:10
Hct 32.3 % (37.0-47.0) L 03/09/25 05:10
Plt Count 361 10^3/uL (130-400) D 03/09/25 05:10
Sodium 130 mmol/L (135-145) L 03/09/25 05:10
Potassium 4.7 mmol/L (3.5-5.1) 03/09/25 05:10
Chloride 96 mmol/L (98-107) L 03/09/25 05:10
Carbon Dioxide 25 mmol/L (22-30) 03/09/25 05:10
BUN 19 mg/dl (7-17) H 03/09/25 05:10
Creatinine 0.4 mg/dL (0.6-1.0) L 03/09/25 05:10
eGFR > 60.00 03/09/25 05:10
Glucose 243 mg/dl (70-99) H 03/09/25 05:10
Calcium 7.3 mg/dl (8.4-10.2) L 03/09/25 05:10
Phosphorus 2.6 mg/dl (2.5-4.5) 03/04/25 05:00
Tsy-A-Nkzmfjtrtiv Pept 615 pg/ml 02/25/25 05:29
Albumin 2.9 g/dl (3.5-5.0) L 03/04/25 05:00
Physical Exam
-
Vital Signs:
Vital Signs
Temp Pulse Resp BP Pulse Ox
97.9 F 107 17 146/98 96
03/09/25 07:44 03/09/25 08:40 03/09/25 07:44 03/09/25 08:40 03/09/25 07:44
Cardiovascular:: Regular rate and rhythm
Respiratory:: Bilateral: Coarse
Lung Excursion:: Normal
Abdomen:: Nontender and Soft
Bowel Sounds:: Normal
Extremity Edema:: None: Bilateral:
[2025-03-09 12:24] VITALS: PULSE 97; O2SAT 97
[2025-03-09 12:26] VITALS: PULSE 97; O2SAT 97
[2025-03-09] MEDS: ZOFRAN ODT (ORALLY DISINTEGRATING) 4 MG PO (12:57)
[2025-03-09 15:24] VITALS: BP 90/65
[2025-03-09 18:19] LABS: Glucose - Point of Care 393 mg/dl (70-99)
[2025-03-09] MEDS: LOVENOX 40 MG SC (18:47)
[2025-03-09] MEDS: NON-FORMULARY ITEM 180 MG PO (18:48)
[2025-03-09] MEDS: NOVOLOG FLEXPEN-LOW RESISTANCE 5 UNITS SC (18:49)
[2025-03-09 21:39] LABS: Glucose - Point of Care 346 mg/dl (70-99)
[2025-03-09] MEDS: NOVOLOG FLEXPEN 4 UNITS SC (22:14)
[2025-03-09 23:45] VITALS: BP 106/73
[2025-03-10 00:44] LABS: Glucose - Point of Care 270 mg/dl (70-99)
[2025-03-10 06:00] VITALS: BMI 21.1
[2025-03-10 07:28] LABS: Blood Urea Nitrogen 21 mg/dl (7-17); Calcium 7.2 mg/dl (8.4-10.2); Carbon Dioxide 29 mmol/L (22-30); Chloride 99 mmol/L (98-107); Estimated Creatinine Clearance 66 ml/min; Glucose 236 mg/dl (70-99); Magnesium 2.1 mg/dl (1.6-2.3); Potassium 4.6 mmol/L (3.5-5.1); Sodium 131 mmol/L (135-145); eGFR > 60.00
[2025-03-10 07:31] VITALS: BP 122/75
[2025-03-10 07:46] LABS: Glucose - Point of Care 199 mg/dl (70-99)
[2025-03-10] MEDS: ROCALTROL 0.25 MCG PO (08:08)
[2025-03-10] MEDS: MS CONTIN (EXTENDED RELEASE) 15 MG PO ×2 (08:08→19:36)
[2025-03-10] MEDS: PROTONIX 40 MG PO (08:08)
[2025-03-10] MEDS: ZINC 50 MG PO (08:08)
[2025-03-10] MEDS: OSCAL CAL 500 1000 MG PO ×2 (08:09→19:36)
[2025-03-10] MEDS: THERAGRAN 1 TABLET PO (08:09)
[2025-03-10] MEDS: VITAMIN B-12 1000 MCG PO (08:09)
[2025-03-10] MEDS: ZESTRIL 5 MG PO (08:09)
[2025-03-10] MEDS: VITAMIN C 500 MG PO (08:09)
[2025-03-10] MEDS: SENOKOT-S 2 TABLET PO (08:09)
[2025-03-10] MEDS: MIRALAX PO (08:11)
[2025-03-10] MEDS: SENNA SYRUP PO (08:13)
[2025-03-10] MEDS: NOVOLOG FLEXPEN-LOW RESISTANCE 1 UNITS SC ×2 (08:15→12:36)
[2025-03-10] MEDS: DECADRON 6 MG IV ×2 (10:45→21:01)
[2025-03-10 11:33] LABS: Glucose - Point of Care 163 mg/dl (70-99)
--- NOTE | 2025-03-10 11:47 | W.PN.NEPH.PH ---
Today's Communication / Plan
-
Follow BMP
Assessment/Plan
-
Impression:
Hyponatremia
Hypocalcemia
Hypoxic respiratory failure on presentation with associated bilateral pleural effusion
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
Hypoalbuminemia/edema
Hypertension
Recent fall with subsequent left humerus fracture
HFpEF 55%
Plan:
follow BMP
Lasix 10 mg daily
continue calcium 1gm BID, calcitriol 0.25 mcg daily to assist in hypercalcemia manage
Fluid restrict 48 ounces RE hyponatremia which remains stable
-
-
Date of Service: March 10, 2025
CC / HPI / ROS
-
Chief Complaint:
Hypocalcemia
Hyponatremia
History of Present Illness:
BP low but stable
Sodium up to 131 stable
Calcium stable
Review of Systems:
No chest pain or shortness of breath
Multiple pains : significant left shoulder
Improved oral intake
Labs
-
Labs:
WBC 12.4 10^3/uL (4.8-10.8) H 03/09/25 05:10
RBC 4.01 10^6/uL (4.20-5.40) L 03/09/25 05:10
Hgb 10.7 g/dL (12.0-16.0) L 03/09/25 05:10
Hct 32.3 % (37.0-47.0) L 03/09/25 05:10
Plt Count 361 10^3/uL (130-400) D 03/09/25 05:10
Sodium 131 mmol/L (135-145) L 03/10/25 06:15
Potassium 4.6 mmol/L (3.5-5.1) 03/10/25 06:15
Chloride 99 mmol/L (98-107) 03/10/25 06:15
Carbon Dioxide 29 mmol/L (22-30) 03/10/25 06:15
BUN 21 mg/dl (7-17) H 03/10/25 06:15
Creatinine 0.4 mg/dL (0.6-1.0) L 03/10/25 06:15
eGFR > 60.00 03/10/25 06:15
Glucose 236 mg/dl (70-99) H 03/10/25 06:15
Calcium 7.2 mg/dl (8.4-10.2) L 03/10/25 06:15
Phosphorus 2.6 mg/dl (2.5-4.5) 03/04/25 05:00
Jcy-Q-Vebdbaiquly Pept 615 pg/ml 02/25/25 05:29
Albumin 2.9 g/dl (3.5-5.0) L 03/04/25 05:00
Physical Exam
-
Vital Signs:
Vital Signs
Temp Pulse Resp BP Pulse Ox
98.1 F 91 19 122/75 95
03/10/25 07:31 03/10/25 07:31 03/10/25 07:31 03/10/25 07:31 03/10/25 07:31
Cardiovascular:: Regular rate and rhythm
Respiratory:: Bilateral: CTA
Lung Excursion:: Normal
Abdomen:: Nontender and Soft
Bowel Sounds:: Normal
Extremity Edema:: None: Bilateral:
[2025-03-10] MEDS: LASIX 10 MG PO (12:10)
--- NOTE | 2025-03-10 14:09 | W.PN.HOSP.TC ---
Today's Communication/Plan
-
Awaiting placement, auth
Assessment / Plan
Assessment / Plan
Physical Exam
General: No Apparent Distress and Comfortable
HEENT: Negative Oxygen
Musculoskeletal: Other (TLSO brace in place, left arm splint placed )
Neuro: Awake, Alert, Oriented, No Motor Deficits and Nonfocal/Grossly Intact
Psych: Calm

MR T spine
Redemonstration of extensive osseous metastatic disease. Extraosseous malignant soft tissue in the spinal canal from T7 through T9 and retropulsion of the chronic pathologic compression fractures of T7 and T8 with secondary severe spinal canal
stenosis at T8 to moderate spinal canal stenosis at T7. No new pathologic compression fracture. Similar appearance of the thoracic spine and lumbar spine compared to previous MRI examinations from 01/14/2025 and 01/13/2025.

1. Acute Hypoxic Respiratory Failure - Improving
Small Bilateral Pleural Effusions
-Patient noted to be hypoxic requiring 6 L oxygen through nasal cannula in ER
-proBNP not significantly elevated. Echocardiogram was a poor study although no overt concern of heart failure
-Recent CT chest PE on 02/16 was negative for any VTE.
-small bilateral pleural effusion on imaging
-weaned off of o2 at this point. monitor
2. Hypocalcemia
-Corrected calcium of low for albumin.
-Patient was provided IV calcium followed by initiation of oral calcium bicarbonate pills
-PTH/vitamin D level not indicative of any abnormality
-Chemo? related. Nephro following and help appreciated
-Continue calcium 1gm BID, calcitriol 0.25 mcg daily
3. Acute hyponatremia
-Suspected multifactorial from malignancy, pain and hypervolemia related
-Continue Lasix 10 mg daily
-Continue PO fluid restriction
4. Recent Fall with left humerus fracture
Pathologic fracture left coracoid process
Nondisplaced fracture lateral left ninth rib
Thoracic spine compression deformities of indeterminate acuity
- MRI T-spine finding as above
- neurosurgery evaluated and recommended surgical correction only if patient have significant weakness developing
- I discussed case with on-call [facility]opedic surgeon who requested patient to follow-up with Dr. Chris Kunz for further management of left humeral fracture.
- TLSO brace for patient to use per neurosurgery recommendation
- Remains on IV Decadron 6mg q8h --> decrease frequency to Q12H
- Repeat on x-ray showing beside movement of distal humeral and no complicating factors
- Case was discussed with [facility] orthopedic surgeon who recommended against any immediate surgery with overall patient condition
- [facility] orthopedics evaluated
- Malave brace had been placed for support, pain has improved significantly
5. Mild toxic encephalopathy - Improved
- From high-dose of narcotics required due to significant pain
- No other ongoing infection issue
6. Non-small cell lung cancer with metastatic disease
- Hematology/oncology following-increase Brigatinib dose to 180 mg day
7. Prolonged QTc
-Suspected at least partly from hypocalcemia
-Avoid/minimize QTc-prolonging medications
8. Lower extremity swelling
- Secondary to volume overload state
- Echo poor quality although no clear concern of low EF/heart failure
- Lower extremity DVT has been negative
9. Leukocytosis
- suspected steroids use related vs reactive with malignancy
10. Chronic pain and narcotic dependence
Narcotic induced constipation
-Patient is on Morphine 30mg q4h prn sev pain, morphine 15mg q12h pain.
- Patient had good bowel movement today with senna/MiraLAX
Anemia of Chronic Disease
High ALP -Likely related to bone metastases
Essential Hypertension
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
DVT Prophylaxis: Lovenox
Code Status: Full Code
DISPOSITION: Per case management communication this morning, they have not found SNF for her yet -- resent referrals and patient will need auth
On 03/09/25, I spoke to both patient and her in the patient's room; all questions and concerns were answered to satisfaction.
On 03/10/25, I spoke to both patient and her in the patient's room; all questions and concerns were answered to satisfaction.
Anticipated Discharge: Within 24 hours
Subjective/Interval History
-
Date of Service: March 10, 2025
Patient was seen and examined. No new significant symptoms.
Objective Data
-
Labs:
Laboratory Results
03/10/25
06:15
Sodium 131 L
Potassium 4.6
Chloride 99
Carbon Dioxide 29
BUN 21 H
Creatinine 0.4 L
Glucose 236 H
Calcium 7.2 L
Vital Signs:
Vital Signs
Temp Pulse Resp BP Pulse Ox
98.1 F 91 19 122/75 95
03/10/25 07:31 03/10/25 07:31 03/10/25 07:31 03/10/25 07:31 03/10/25 07:31
I&O
03/09/25 03/10/25 03/11/25
06:59 06:59 06:59
Intake Total 1210 / 1210
Output Total 380 / 380
Balance -380 / -380 1210 / 1210
[2025-03-10 15:31] VITALS: BP 117/78
[2025-03-10 15:51] VITALS: PULSE 115; O2SAT 97
[2025-03-10 16:50] LABS: Glucose - Point of Care 367 mg/dl (70-99)
[2025-03-10] MEDS: NOVOLOG FLEXPEN-LOW RESISTANCE 5 UNITS SC (16:53)
[2025-03-10] MEDS: NON-FORMULARY ITEM 180 MG PO (17:00)
[2025-03-10] MEDS: LOVENOX 40 MG SC (17:00)
--- NOTE | 2025-03-10 17:11 | CM ---
PT OT indicated SNF.
Resent all referral to SNF with updated PT evals.
Spoke with Andreia at [facility] . No bed today . Will call in am for bed available .
Pt and notified of above.
Will need auth .
PLAN To SNf after auth obtained
[2025-03-10 19:42] VITALS: BP 129/79
[2025-03-10] MEDS: SENOKOT 8.6 MG PO (20:59)
[2025-03-10 21:40] LABS: Glucose - Point of Care 241 mg/dl (70-99)
[2025-03-10 23:35] VITALS: BP 121/80
[2025-03-11 03:20] VITALS: BP 123/82
[2025-03-11 07:46] VITALS: BP 123/81
[2025-03-11 07:58] LABS: Glucose - Point of Care 154 mg/dl (70-99)
[2025-03-11] MEDS: ZINC 50 MG PO (09:08)
[2025-03-11] MEDS: MS CONTIN (EXTENDED RELEASE) 15 MG PO ×2 (09:08→21:26)
[2025-03-11] MEDS: THERAGRAN 1 TABLET PO (09:08)
[2025-03-11] MEDS: VITAMIN C 500 MG PO (09:08)
[2025-03-11] MEDS: ROCALTROL 0.25 MCG PO (09:08)
[2025-03-11] MEDS: LASIX 10 MG PO (09:10)
[2025-03-11] MEDS: VITAMIN B-12 1000 MCG PO (09:10)
[2025-03-11] MEDS: PROTONIX 40 MG PO (09:12)
[2025-03-11] MEDS: ZESTRIL 5 MG PO (09:12)
[2025-03-11] MEDS: OSCAL CAL 500 1000 MG PO ×2 (09:14→21:26)
[2025-03-11] MEDS: DECADRON 6 MG IV ×2 (09:15→21:26)
[2025-03-11] MEDS: MIRALAX PO (09:16)
[2025-03-11] MEDS: SENOKOT-S PO (09:16)
[2025-03-11] MEDS: SENOKOT 8.6 MG PO (09:17)
[2025-03-11] MEDS: NOVOLOG FLEXPEN-MODERATE RESISTANCE 1 UNITS SC ×2 (09:20→13:03)
[2025-03-11 10:00] VITALS: BMI 21.9
[2025-03-11 11:03] VITALS: BP 118/79
--- NOTE | 2025-03-11 11:06 | W.PN.HOSP.TC ---
Today's Communication/Plan
-
Awaiting auth and placement
Assessment / Plan
Assessment / Plan
Physical Exam
General: No Apparent Distress and Comfortable
HEENT: Negative Oxygen
Musculoskeletal: Other (TLSO brace in place, left arm splint placed )
Neuro: Awake, Alert, Oriented, No Motor Deficits and Nonfocal/Grossly Intact
Psych: Calm

MR T spine
Redemonstration of extensive osseous metastatic disease. Extraosseous malignant soft tissue in the spinal canal from T7 through T9 and retropulsion of the chronic pathologic compression fractures of T7 and T8 with secondary severe spinal canal
stenosis at T8 to moderate spinal canal stenosis at T7. No new pathologic compression fracture. Similar appearance of the thoracic spine and lumbar spine compared to previous MRI examinations from 01/14/2025 and 01/13/2025.

1. Acute Hypoxic Respiratory Failure - Improving
Small Bilateral Pleural Effusions
-Patient noted to be hypoxic requiring 6 L oxygen through nasal cannula in ER
-proBNP not significantly elevated. Echocardiogram was a poor study although no overt concern of heart failure
-Recent CT chest PE on 02/16 was negative for any VTE.
-small bilateral pleural effusion on imaging
-weaned off of o2 at this point. monitor
2. Hypocalcemia
-Corrected calcium of low for albumin.
-Patient was provided IV calcium followed by initiation of oral calcium bicarbonate pills
-PTH/vitamin D level not indicative of any abnormality
-Chemo? related. Nephro following and help appreciated
-Continue calcium 1gm BID, calcitriol 0.25 mcg daily
3. Acute hyponatremia
-Suspected multifactorial from malignancy, pain and hypervolemia related
-Continue Lasix 10 mg daily
-Continue PO fluid restriction 48 ounces daily
4. Recent Fall with left humerus fracture
Pathologic fracture left coracoid process
Nondisplaced fracture lateral left ninth rib
Thoracic spine compression deformities of indeterminate acuity
- MRI T-spine finding as above
- neurosurgery evaluated and recommended surgical correction only if patient have significant weakness developing
- I discussed case with on-call [facility] surgeon who requested patient to follow-up with Dr. Chris Kunz for further management of left humeral fracture.
- TLSO brace for patient to use per neurosurgery recommendation
- Remains on IV Decadron 6mg q8h --> decreased frequency to Q12H
- Repeat on x-ray showing beside movement of distal humeral and no complicating factors
- Case was discussed with [facility] orthopedic surgeon who recommended against any immediate surgery with overall patient condition
- [facility] evaluated
- Malave brace had been placed for support, pain has improved significantly
5. Mild toxic encephalopathy - Improved
- From high-dose of narcotics required due to significant pain
- No other ongoing infection issue
6. Non-small cell lung cancer with metastatic disease
- Hematology/oncology following-recently increased Brigatinib dose to 180 mg per day
7. Prolonged QTc
-Suspected at least partly from hypocalcemia
-Avoid/minimize QTc-prolonging medications
8. Lower extremity swelling
- Secondary to volume overload state
- Echo poor quality although no clear concern of low EF/heart failure
- Lower extremity DVT has been negative
9. Leukocytosis
- suspected steroids use related vs reactive with malignancy
10. Chronic pain and narcotic dependence
Narcotic induced constipation
-Patient is on Morphine 30mg q4h prn sev pain, morphine 15mg q12h pain.
-Continue bowel regimen
Anemia of Chronic Disease
High ALP -Likely related to bone metastases
Essential Hypertension
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
DVT Prophylaxis: Lovenox
Code Status: Full Code
DISPOSITION: Per case management communication this morning, they have not found SNF for her yet -- resent referrals and patient will need auth
On 03/09/25, I spoke to both patient and her in the patient's room; all questions and concerns were answered to satisfaction.
On 03/10/25, I spoke to both patient and her in the patient's room; all questions and concerns were answered to satisfaction.
On 03/11/25, I spoke to both patient and her in the patient's room; all questions and concerns were answered to satisfaction.
Anticipated Discharge: 24 - 48 hours
Subjective/Interval History
-
Date of Service: March 11, 2025
Patient was seen and examined. No new significant symptoms or complaints, no new bowel movements in 2 days.
Objective Data
-
Vital Signs:
Vital Signs
Temp Pulse Resp BP Pulse Ox
98.4 F 96 14 118/79 96
03/11/25 11:03 03/11/25 11:03 03/11/25 11:03 03/11/25 11:03 03/11/25 11:03
I&O
03/10/25 03/11/25 03/12/25
06:59 06:59 06:59
Intake Total 1210 / 1210 1050 / 1050
Output Total 240 / 240
Balance 1210 / 1210 810 / 810
[2025-03-11 11:29] LABS: Glucose - Point of Care 186 mg/dl (70-99)
--- NOTE | 2025-03-11 14:17 | PTCARENOTE ---
patient sitting oob for lunch, sat oob for breakfast, using bsc to void. pain managed well, tolerating diet, vss, at bedside, will continue to monitor.
--- NOTE | 2025-03-11 15:07 | W.PN.UPDATE ---
Update Note
Progress Note Update
renal signed off.
[2025-03-11 15:26] VITALS: PULSE 95; O2SAT 97
--- NOTE | 2025-03-11 16:03 | CM ---
PT OT indicated SNF.
Spoke with Andreia at [facility] . She has no beds .
Spoke with pt and additional [facility] placed in care port.
Pt will provide Alunbrig 180mg daily at SNF.
Will need auth .
CM please check if SNF have beds
PLAN To SNf after auth obtained
[2025-03-11 16:41] LABS: Glucose - Point of Care 457 mg/dl (70-99)
[2025-03-11 17:19] LABS: Glucose 356 mg/dl (70-99)
[2025-03-11] MEDS: NOVOLOG FLEXPEN-MODERATE RESISTANCE 9 UNITS SC (17:57)
[2025-03-11] MEDS: NON-FORMULARY ITEM 1 MG PO (17:58)
[2025-03-11] MEDS: LOVENOX 40 MG SC (18:03)
--- NOTE | 2025-03-11 18:19 | PTCARENOTE ---
at 1639, patient's accucheck read 457. stat lab glucose done and it was 356 at 1700 per protocol. insulin administered per sliding scale protocol as ordered. repeat glucose to be done at 1700. will continue to monitor.
[2025-03-11 19:54] LABS: Glucose - Point of Care 192 mg/dl (70-99)
[2025-03-11 23:00] VITALS: BP 117/80
[2025-03-12 05:00] VITALS: BMI 21.8
--- NOTE | 2025-03-12 07:39 | W.PN.HOSP.TC ---
Today's Communication/Plan
-
Decrease steroid frequency
Will check BMP again to see whether can liberalize patient's PO fluid restriction
Assessment / Plan
Assessment / Plan
Physical Exam
General: No Apparent Distress and Comfortable
HEENT: Negative Oxygen
Musculoskeletal: Other (TLSO brace in place, left arm splint placed )
Neuro: Awake, Alert, Oriented, No Motor Deficits and Nonfocal/Grossly Intact
Psych: Calm

MR T spine
Redemonstration of extensive osseous metastatic disease. Extraosseous malignant soft tissue in the spinal canal from T7 through T9 and retropulsion of the chronic pathologic compression fractures of T7 and T8 with secondary severe spinal canal
stenosis at T8 to moderate spinal canal stenosis at T7. No new pathologic compression fracture. Similar appearance of the thoracic spine and lumbar spine compared to previous MRI examinations from 01/14/2025 and 01/13/2025.

1. Acute Hypoxic Respiratory Failure - Improving
Small Bilateral Pleural Effusions
-Patient noted to be hypoxic requiring 6 L oxygen through nasal cannula in ER
-proBNP not significantly elevated. Echocardiogram was a poor study although no overt concern of heart failure
-Recent CT chest PE on 02/16 was negative for any VTE.
-small bilateral pleural effusion on imaging
-weaned off of o2 at this point. monitor
2. Hypocalcemia
-Corrected calcium of low for albumin.
-Patient was provided IV calcium followed by initiation of oral calcium bicarbonate pills
-PTH/vitamin D level not indicative of any abnormality
-Chemo? related. Nephro following and help appreciated
-Continue calcium 1gm BID, calcitriol 0.25 mcg daily
3. Acute hyponatremia
-Suspected multifactorial from malignancy, pain and hypervolemia related
-Continue Lasix 10 mg daily
-Continue PO fluid restriction 48 ounces daily
4. Recent Fall with left humerus fracture
Pathologic fracture left coracoid process
Nondisplaced fracture lateral left ninth rib
Thoracic spine compression deformities of indeterminate acuity
- MRI T-spine finding as above
- neurosurgery evaluated and recommended surgical correction only if patient have significant weakness developing
- I discussed case with on-call [facility]opedic surgeon who requested patient to follow-up with Dr. Chris Kunz for further management of left humeral fracture.
- TLSO brace for patient to use per neurosurgery recommendation
- Remains on IV Decadron 6mg q8h --> decreased frequency to Q12H --> decrease frequency to daily --> goal is to complete steroid taper with last day 03/17/25 (discussed this with on-call neurosurgeon)
- Repeat on x-ray showing beside movement of distal humeral and no complicating factors
- Case was discussed with [facility] orthopedic surgeon who recommended against any immediate surgery with overall patient condition
- [facility] evaluated
- Malave brace had been placed for support, pain has improved significantly
5. Mild toxic encephalopathy - Improved
- From high-dose of narcotics required due to significant pain
- No other ongoing infection issue
6. Non-small cell lung cancer with metastatic disease
- Hematology/oncology following-recently increased Brigatinib dose to 180 mg per day
7. Prolonged QTc
-Suspected at least partly from hypocalcemia
-Avoid/minimize QTc-prolonging medications
8. Lower extremity swelling
- Secondary to volume overload state
- Echo poor quality although no clear concern of low EF/heart failure
- Lower extremity DVT has been negative
9. Leukocytosis
- suspected steroids use related vs reactive with malignancy
10. Chronic pain and narcotic dependence
Narcotic induced constipation
-Patient is on Morphine 30mg q4h prn sev pain, morphine 15mg q12h pain.
-Continue bowel regimen
Anemia of Chronic Disease
High ALP -Likely related to bone metastases
Essential Hypertension
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
DVT Prophylaxis: Lovenox
Code Status: Full Code
DISPOSITION: Per case management communication this morning, they have not found SNF for her yet -- resent referrals and patient will need auth
On 03/09/25, I spoke to both patient and her in the patient's room; all questions and concerns were answered to satisfaction.
On 03/10/25, I spoke to both patient and her in the patient's room; all questions and concerns were answered to satisfaction.
On 03/11/25, I spoke to both patient and her in the patient's room; all questions and concerns were answered to satisfaction.
On 03/12/25, I spoke to both patient and her in the patient's room; all questions and concerns were answered to satisfaction.
Anticipated Discharge: > 48 hours
Subjective/Interval History
-
Date of Service: March 12, 2025
Patient was seen and examined. She was stable, no new significant symptoms or complaints.
Objective Data
-
Vital Signs:
Vital Signs
Temp Pulse Resp BP Pulse Ox
97.9 F 99 16 117/80 94
03/11/25 23:00 03/11/25 23:00 03/11/25 23:00 03/11/25 23:00 03/11/25 23:00
I&O
03/11/25 03/12/25 03/13/25
06:59 06:59 06:59
Intake Total 1050 / 1050 540 / 540
Output Total 240 / 240
Balance 810 / 810 540 / 540
[2025-03-12 07:56] VITALS: BP 137/98
[2025-03-12 08:02] LABS: Glucose - Point of Care 181 mg/dl (70-99)
[2025-03-12] MEDS: MS CONTIN (EXTENDED RELEASE) 15 MG PO ×2 (08:13→20:22)
[2025-03-12] MEDS: ZESTRIL 5 MG PO (08:13)
[2025-03-12] MEDS: NOVOLOG FLEXPEN-MODERATE RESISTANCE 1 UNITS SC (08:14)
[2025-03-12] MEDS: ZINC 50 MG PO (08:16)
[2025-03-12] MEDS: MIRALAX PO (08:16)
[2025-03-12] MEDS: ROCALTROL 0.25 MCG PO (08:17)
[2025-03-12] MEDS: PROTONIX 40 MG PO (08:17)
[2025-03-12] MEDS: LASIX 10 MG PO (08:17)
[2025-03-12] MEDS: THERAGRAN 1 TABLET PO (08:17)
[2025-03-12] MEDS: VITAMIN C 500 MG PO (08:18)
[2025-03-12] MEDS: OSCAL CAL 500 1000 MG PO ×2 (08:18→20:23)
[2025-03-12] MEDS: SENOKOT-S 2 TABLET PO (08:18)
[2025-03-12] MEDS: VITAMIN B-12 1000 MCG PO (08:18)
[2025-03-12] MEDS: DECADRON 6 MG IV (10:42)
[2025-03-12 11:37] LABS: Glucose - Point of Care 117 mg/dl (70-99)
[2025-03-12] MEDS: NOVOLOG FLEXPEN-MODERATE RESISTANCE SC (12:15)
[2025-03-12 15:26] VITALS: BP 127/90; PULSE 116; O2SAT 97
[2025-03-12 15:29] VITALS: BP 127/90
[2025-03-12 16:03] VITALS: BP 127/90; PULSE 116; O2SAT 97
[2025-03-12 16:37] LABS: Glucose - Point of Care 295 mg/dl (70-99)
[2025-03-12] MEDS: NOVOLOG FLEXPEN-MODERATE RESISTANCE 5 UNITS SC (17:48)
[2025-03-12] MEDS: NON-FORMULARY ITEM 180 MG PO (17:49)
[2025-03-12] MEDS: LOVENOX 40 MG SC (17:49)
[2025-03-12 21:40] LABS: Glucose - Point of Care 195 mg/dl (70-99)
[2025-03-12 22:36] LABS: Blood Urea Nitrogen 16 mg/dl (7-17); Calcium 7.1 mg/dl (8.4-10.2); Carbon Dioxide 27 mmol/L (22-30); Chloride 97 mmol/L (98-107); Estimated Creatinine Clearance 66 ml/min; Glucose 196 mg/dl (70-99); Potassium 4.1 mmol/L (3.5-5.1); Sodium 127 mmol/L (135-145); eGFR > 60.00
[2025-03-13 00:47] VITALS: BP 109/74
[2025-03-13] MEDS: MORPHINE SULFATE 30 MG PO ×2 (02:21→17:11)
[2025-03-13 06:00] VITALS: BMI 22.7
[2025-03-13 06:00] LABS: Hematocrit 35.7 % (37.0-47.0); Mean Corp Hgb Conc. 33.6 g/dL (33.0-37.0); Mean Corpuscular Volume 80.4 fL (81.0-99.0); Mean Platelet Volume 10.6 fL (7.4-10.4); Platelet Count 254 10^3/uL (130-400); Red Blood Cell Count 4.44 10^6/uL (4.20-5.40); White Blood Cell Count 14.3 10^3/uL (4.8-10.8)
[2025-03-13 06:22] LABS: Blood Urea Nitrogen 15 mg/dl (7-17); Calcium 7.3 mg/dl (8.4-10.2); Carbon Dioxide 29 mmol/L (22-30); Chloride 97 mmol/L (98-107); Estimated Creatinine Clearance 66 ml/min; Glucose 110 mg/dl (70-99); Potassium 4.6 mmol/L (3.5-5.1); Sodium 131 mmol/L (135-145); eGFR > 60.00
--- NOTE | 2025-03-13 07:47 | W.PN.HOSP.TC ---
Today's Communication/Plan
-
Awaiting placement
Continue to taper steroid
Assessment / Plan
Assessment / Plan
Physical Exam
General: No Apparent Distress and Comfortable
HEENT: Negative Oxygen
Musculoskeletal: Other (TLSO brace in place, left arm splint placed )
Neuro: Awake, Alert, Oriented, No Motor Deficits and Nonfocal/Grossly Intact
Psych: Calm

MR T spine
Redemonstration of extensive osseous metastatic disease. Extraosseous malignant soft tissue in the spinal canal from T7 through T9 and retropulsion of the chronic pathologic compression fractures of T7 and T8 with secondary severe spinal canal
stenosis at T8 to moderate spinal canal stenosis at T7. No new pathologic compression fracture. Similar appearance of the thoracic spine and lumbar spine compared to previous MRI examinations from 01/14/2025 and 01/13/2025.

1. Acute Hypoxic Respiratory Failure - Improving
Small Bilateral Pleural Effusions
-Patient noted to be hypoxic requiring 6 L oxygen through nasal cannula in ER
-proBNP not significantly elevated. Echocardiogram was a poor study although no overt concern of heart failure
-Recent CT chest PE on 02/16 was negative for any VTE.
-small bilateral pleural effusion on imaging
-weaned off of o2 at this point. monitor
-Currently remains on room air
2. Hypocalcemia
-Corrected calcium of low for albumin.
-Patient was provided IV calcium followed by initiation of oral calcium bicarbonate pills
-PTH/vitamin D level not indicative of any abnormality
-Chemo? related. Nephro following and help appreciated
-Continue calcium 1gm BID, calcitriol 0.25 mcg daily
3. Acute hyponatremia
-Suspected multifactorial from malignancy, pain and hypervolemia related
-Continue Lasix 10 mg daily
-Continue PO fluid restriction 48 ounces daily
4. Recent Fall with left humerus fracture
Pathologic fracture left coracoid process
Nondisplaced fracture lateral left ninth rib
Thoracic spine compression deformities of indeterminate acuity
- MRI T-spine finding as above
- neurosurgery evaluated and recommended surgical correction only if patient have significant weakness developing
- I discussed case with on-call [facility]opedic surgeon who requested patient to follow-up with Dr. Chris Kunz for further management of left humeral fracture.
- TLSO brace for patient to use per neurosurgery recommendation
- Initially was on IV Decadron 6mg q6h --> gradually reducing steroid dose everyday --> goal is to complete steroid taper with last day 03/17/25 (discussed this with on-call neurosurgeon)
- Repeat on x-ray showing beside movement of distal humeral and no complicating factors
- Case was discussed with [facility] orthopedic surgeon who recommended against any immediate surgery with overall patient condition
- [facility] evaluated
- Malave brace had been placed for support, pain has improved significantly
5. Mild toxic encephalopathy - RESOLVED
- From high-dose of narcotics required due to significant pain
- No other ongoing infection issue
6. Non-small cell lung cancer with metastatic disease
- Hematology/oncology following-recently increased Brigatinib dose to 180 mg per day
7. Prolonged QTc
-Suspected at least partly from hypocalcemia
-Avoid/minimize QTc-prolonging medications
8. Lower extremity swelling
- Secondary to volume overload state
- Echo poor quality although no clear concern of low EF/heart failure
- Lower extremity DVT has been negative
9. Leukocytosis
- suspected steroids use related vs reactive with malignancy
10. Chronic pain and narcotic dependence
Narcotic induced constipation
-Patient is on Morphine 30mg q4h prn sev pain, morphine 15mg q12h pain.
-Continue bowel regimen
Anemia of Chronic Disease
High ALP -Likely related to bone metastases
Essential Hypertension
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
DVT Prophylaxis: Lovenox
Code Status: Full Code
DISPOSITION: Per case management communication this morning, they have not found SNF for her yet -- resent referrals and patient will need auth
On 03/09/25, I spoke to both patient and her in the patient's room; all questions and concerns were answered to satisfaction.
On 03/10/25, I spoke to both patient and her in the patient's room; all questions and concerns were answered to satisfaction.
On 03/11/25, I spoke to both patient and her in the patient's room; all questions and concerns were answered to satisfaction.
On 03/12/25, I spoke to both patient and her in the patient's room; all questions and concerns were answered to satisfaction.
On 03/13/25, I spoke to both patient and her in the patient's room; all questions and concerns were answered to satisfaction.
Anticipated Discharge: > 48 hours
Subjective/Interval History
-
Date of Service: March 13, 2025
Patient was seen and examined. She reported pain while in sitting in the chair today.
Objective Data
-
Labs:
Laboratory Results
03/12/25 03/13/25
22:12 05:23
WBC 14.3 H
Hgb 12.0
Hct 35.7 L
Plt Count 254 D
Sodium 127 L 131 L
Potassium 4.1 4.6
Chloride 97 L 97 L
Carbon Dioxide 27 29
BUN 16 15
Creatinine 0.4 L 0.4 L
Glucose 196 H 110 H
Calcium 7.1 L 7.3 L
Vital Signs:
Vital Signs
Temp Pulse Resp BP Pulse Ox
98.8 F 94 17 109/74 96
03/13/25 00:47 03/13/25 00:47 03/13/25 00:47 03/13/25 00:47 03/13/25 00:47
I&O
03/12/25 03/13/25 03/14/25
06:59 06:59 06:59
Intake Total 540 / 540 660 / 660
Balance 540 / 540 660 / 660
[2025-03-13] MEDS: ZINC 50 MG PO (07:55)
[2025-03-13] MEDS: OSCAL CAL 500 1000 MG PO ×2 (07:55→21:18)
[2025-03-13] MEDS: MIRALAX 17 GRAMS PO (07:55)
[2025-03-13] MEDS: VITAMIN C 500 MG PO (07:55)
[2025-03-13] MEDS: MS CONTIN (EXTENDED RELEASE) 15 MG PO ×2 (07:55→21:18)
[2025-03-13] MEDS: SENOKOT-S 2 TABLET PO (07:55)
[2025-03-13] MEDS: VITAMIN B-12 1000 MCG PO (07:55)
[2025-03-13] MEDS: THERAGRAN 1 TABLET PO (07:56)
[2025-03-13] MEDS: PROTONIX 40 MG PO (07:56)
[2025-03-13] MEDS: ZESTRIL 5 MG PO (07:56)
[2025-03-13] MEDS: ROCALTROL 0.25 MCG PO (07:56)
[2025-03-13 08:03] VITALS: BP 119/81
[2025-03-13 08:14] LABS: Glucose - Point of Care 86 mg/dl (70-99)
[2025-03-13] MEDS: NOVOLOG FLEXPEN-MODERATE RESISTANCE SC (08:36)
[2025-03-13] MEDS: DECADRON 6 MG IV (08:37)
[2025-03-13] MEDS: LASIX 10 MG PO (08:37)
[2025-03-13] MEDS: ZOFRAN ODT (ORALLY DISINTEGRATING) 4 MG PO (08:45)
--- NOTE | 2025-03-13 10:55 | CM ---
PT OT indicated SNF.
[facility] not [facility] with chemo.
LM with [facility] and [facility]
Spoke with [facility] additional referral placed for [facility] and [facility] .
Pt will provide Alunbrig 180mg daily at SNF.
Will need auth .
PLAN To SNf after auth obtained
[2025-03-13 11:55] LABS: Glucose - Point of Care 189 mg/dl (70-99)
[2025-03-13] MEDS: NOVOLOG FLEXPEN-MODERATE RESISTANCE 1 UNITS SC (12:23)
[2025-03-13 15:58] VITALS: BP 118/77
[2025-03-13 17:05] LABS: Glucose - Point of Care 281 mg/dl (70-99)
[2025-03-13] MEDS: NOVOLOG FLEXPEN-MODERATE RESISTANCE 5 UNITS SC (17:07)
--- NOTE | 2025-03-13 17:24 | CM ---
Lyssa from [facility] accepted pt tomorrow after auth obtained.
RADHA
DR Scott
PT on 3W notified pt needs PT OT for auth
[facility]
report [phone]
fax [phone]
PLAN T [facility] after auth obtained
[2025-03-13] MEDS: NON-FORMULARY ITEM 180 MG PO (18:33)
[2025-03-13] MEDS: LOVENOX 40 MG SC (18:34)
[2025-03-14 01:14] LABS: Glucose - Point of Care 104 mg/dl (70-99)
[2025-03-14 01:26] VITALS: BP 117/79
[2025-03-14 06:00] VITALS: BMI 22.6
--- NOTE | 2025-03-14 06:51 | PTCARENOTE ---
Pt had been urinating approximately q 2hrs. Called c/o sensation but inability to void. Bladder scanned for 14cc. No intervention needed. Will continue to monitor.
[2025-03-14] MEDS: SENOKOT-S 2 TABLET PO (07:56)
[2025-03-14] MEDS: DECADRON 4 MG IV (07:56)
[2025-03-14] MEDS: MIRALAX 17 GRAMS PO (07:56)
[2025-03-14] MEDS: LASIX 10 MG PO (07:57)
[2025-03-14] MEDS: THERAGRAN 1 TABLET PO (07:57)
[2025-03-14] MEDS: PROTONIX 40 MG PO (07:57)
[2025-03-14] MEDS: VITAMIN B-12 1000 MCG PO (07:57)
[2025-03-14] MEDS: OSCAL CAL 500 1000 MG PO ×2 (07:57→21:32)
[2025-03-14] MEDS: ROCALTROL 0.25 MCG PO (07:57)
[2025-03-14] MEDS: ZINC 50 MG PO (07:58)
[2025-03-14] MEDS: VITAMIN C 500 MG PO (07:58)
[2025-03-14 08:04] LABS: Glucose - Point of Care 135 mg/dl (70-99)
[2025-03-14] MEDS: MS CONTIN (EXTENDED RELEASE) 15 MG PO ×2 (08:04→21:32)
[2025-03-14] MEDS: NOVOLOG FLEXPEN-MODERATE RESISTANCE SC (08:25)
[2025-03-14 08:26] VITALS: BP 139/96
[2025-03-14] MEDS: ZESTRIL 5 MG PO (09:00)
[2025-03-14 09:26] VITALS: BP 122/85; PULSE 115; O2SAT 97
--- NOTE | 2025-03-14 12:09 | W.PN.HOSP.TC ---
Today's Communication/Plan
-
Placement at SNF available tomorrow per case management
Intensify bowel regimen given significant constipation -- see below -- avoid Mag Citrate
Assessment / Plan
Assessment / Plan
Physical Exam
General: No Apparent Distress and Comfortable
HEENT: Negative Oxygen
Musculoskeletal: Other (TLSO brace in place, left arm splint placed )
Neuro: Awake, Alert, Oriented, No Motor Deficits and Nonfocal/Grossly Intact
Psych: Calm

MR T spine
Redemonstration of extensive osseous metastatic disease. Extraosseous malignant soft tissue in the spinal canal from T7 through T9 and retropulsion of the chronic pathologic compression fractures of T7 and T8 with secondary severe spinal canal
stenosis at T8 to moderate spinal canal stenosis at T7. No new pathologic compression fracture. Similar appearance of the thoracic spine and lumbar spine compared to previous MRI examinations from 01/14/2025 and 01/13/2025.

1. Acute Hypoxic Respiratory Failure - Improving
Small Bilateral Pleural Effusions
Volume Overload - Possible CHF
-Patient noted to be hypoxic requiring 6 L oxygen through nasal cannula in ER
-proBNP not significantly elevated. Echocardiogram was a poor study although no overt concern of heart failure
-Recent CT chest PE on 02/16 was negative for any VTE.
-small bilateral pleural effusion on imaging
-weaned off of o2 at this point. monitor
-Currently remains on room air
-Continue Lasix
2. Hypocalcemia
-Corrected calcium of low for albumin.
-Patient was provided IV calcium followed by initiation of oral calcium bicarbonate pills
-PTH/vitamin D level not indicative of any abnormality
-Chemo? related. Nephro following and help appreciated
-Continue calcium 1gm BID, calcitriol 0.25 mcg daily
3. Acute hyponatremia
-Suspected multifactorial from malignancy, pain and hypervolemia related
-Continue Lasix 10 mg daily
-Continue PO fluid restriction 48 ounces daily
4. Recent Fall with left humerus fracture
Pathologic fracture left coracoid process
Nondisplaced fracture lateral left ninth rib
Thoracic spine compression deformities of indeterminate acuity
- MRI T-spine finding as above
- neurosurgery evaluated and recommended surgical correction only if patient have significant weakness developing
- I discussed case with on-call [facility]opedic surgeon who requested patient to follow-up with Dr. Chris Kunz for further management of left humeral fracture.
- TLSO brace for patient to use per neurosurgery recommendation
- Initially was on IV Decadron 6mg q6h --> gradually reducing steroid dose everyday --> goal is to complete steroid taper with last day 03/17/25 (discussed this with on-call neurosurgeon)
- Repeat on x-ray showing beside movement of distal humeral and no complicating factors
- Case was discussed with [facility] orthopedic surgeon who recommended against any immediate surgery with overall patient condition
- [facility] evaluated
- Malave brace had been placed for support, pain has improved significantly
5. Mild toxic encephalopathy - RESOLVED
- From high-dose of narcotics required due to significant pain
- No other ongoing infection issue
6. Non-small cell lung cancer with metastatic disease
- Hematology/oncology following-recently increased Brigatinib dose to 180 mg per day
7. Prolonged QTc
-Suspected at least partly from hypocalcemia
-Avoid/minimize QTc-prolonging medications
8. Lower extremity swelling
- Secondary to volume overload state
- Echo poor quality although no clear concern of low EF/heart failure
- Lower extremity DVT has been negative
9. Leukocytosis
- suspected steroids use related vs reactive with malignancy
10. Chronic pain and narcotic dependence
Narcotic induced constipation
-Patient is on Morphine 30mg q4h prn sev pain, morphine 15mg q12h pain.
-Continue bowel regimen
11. Constipation
-Encouraged patient to take Miralax Daily as well as Senokot-S everyday
-Abdominal X-Ray on 03/14/25 showed per radiologist: 'Moderate to severe diffuse colonic stool burden may reflect constipation'
-Asked nurse to provide patient with Dulcolax suppository on 03/14/25 (patient in agreement with this)
-If still not having bowel movement after Dulcolax suppository, can try Lactulose or enemas (patient reported warm soap and suds enema 500 cc worked well for her in the past)
-Would avoid Magnesium Citrate given patient's recent volume overload state, and she is getting Lasix
Anemia of Chronic Disease
High ALP -Likely related to bone metastases
Essential Hypertension
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
DVT Prophylaxis: Lovenox
Code Status: Full Code
DISPOSITION: Per case management communication this morning, they have not found SNF for her yet -- resent referrals and patient will need auth
On 03/09/25, I spoke to both patient and her in the patient's room; all questions and concerns were answered to satisfaction.
On 03/10/25, I spoke to both patient and her in the patient's room; all questions and concerns were answered to satisfaction.
On 03/11/25, I spoke to both patient and her in the patient's room; all questions and concerns were answered to satisfaction.
On 03/12/25, I spoke to both patient and her in the patient's room; all questions and concerns were answered to satisfaction.
On 03/13/25, I spoke to both patient and her in the patient's room; all questions and concerns were answered to satisfaction.
Anticipated Discharge: Within 24 hours
Subjective/Interval History
-
Date of Service: March 14, 2025
Patient was seen and examined. She reported doing better today, was able to do more activity; she has not had a bowel movement in the past 3 to 4 days.
Objective Data
-
Vital Signs:
Vital Signs
Temp Pulse Resp BP Pulse Ox
99.1 F 131 21 139/96 96
03/14/25 08:26 03/14/25 09:00 03/14/25 08:26 03/14/25 09:00 03/14/25 08:26
I&O
03/13/25 03/14/25 03/15/25
06:59 06:59 06:59
Intake Total 660 / 660 540 / 540
Balance 660 / 660 540 / 540
[2025-03-14 12:17] LABS: Glucose - Point of Care 178 mg/dl (70-99)
[2025-03-14] MEDS: NOVOLOG FLEXPEN-MODERATE RESISTANCE 1 UNITS SC ×2 (12:43→17:22)
[2025-03-14 15:51] VITALS: BP 102/69
[2025-03-14] MEDS: MORPHINE SULFATE 30 MG PO (15:54)
--- NOTE | 2025-03-14 16:09 | CM ---
Auth was obtained for transfer to [place]
Auth Approved 03/14/25; Next Review 03/28/25 to [phone]
Auth # [id number]
--- NOTE | 2025-03-14 16:10 | CM ---
Addendum entered by Tracy Durant 03/15/25 13:16:
Ambulance Transport Auth
Effective 03/15-03/16
Auth # [id number]
Addendum entered by Tracy Durant 03/15/25 12:07:
Pt for dc today to [place]
For Report;
(P) [phone]
(F) [phone]
Original Note:
Auth was obtained for transfer to [place]
Auth Approved 03/14/25; Next Review 03/18/25 to [phone]
Auth # [id number]
[2025-03-14 16:37] LABS: Glucose - Point of Care 168 mg/dl (70-99)
[2025-03-14] MEDS: NON-FORMULARY ITEM 180 MG PO (17:14)
[2025-03-14] MEDS: LOVENOX 40 MG SC (17:15)
[2025-03-14 22:28] LABS: Glucose - Point of Care 156 mg/dl (70-99)
[2025-03-14 23:10] VITALS: BP 129/79
[2025-03-15] MEDS: TYLENOL 500 MG PO (04:39)
[2025-03-15] MEDS: MORPHINE SULFATE 30 MG PO ×2 (05:56→17:00)
[2025-03-15 06:00] VITALS: BMI 22.5
[2025-03-15 07:29] LABS: Glucose - Point of Care 129 mg/dl (70-99)
[2025-03-15 08:13] VITALS: BP 102/72
[2025-03-15] MEDS: MIRALAX 17 GRAMS PO (09:14)
[2025-03-15] MEDS: NOVOLOG FLEXPEN-MODERATE RESISTANCE SC (09:14)
[2025-03-15] MEDS: DECADRON 3 MG IV (09:15)
[2025-03-15] MEDS: OSCAL CAL 500 1000 MG PO (09:16)
[2025-03-15] MEDS: ZINC 50 MG PO (09:16)
[2025-03-15] MEDS: THERAGRAN 1 TABLET PO (09:16)
[2025-03-15] MEDS: VITAMIN B-12 1000 MCG PO (09:16)
[2025-03-15] MEDS: ROCALTROL 0.25 MCG PO (09:16)
[2025-03-15] MEDS: ZESTRIL 5 MG PO (09:16)
[2025-03-15] MEDS: SENOKOT-S 1 TABLET PO (09:17)
[2025-03-15] MEDS: VITAMIN C 500 MG PO (09:17)
[2025-03-15] MEDS: PROTONIX 40 MG PO (09:17)
[2025-03-15] MEDS: LASIX 10 MG PO (09:17)
[2025-03-15] MEDS: MS CONTIN (EXTENDED RELEASE) 15 MG PO (09:18)
[2025-03-15 11:50] LABS: Glucose - Point of Care 201 mg/dl (70-99)
[2025-03-15] MEDS: NOVOLOG FLEXPEN-MODERATE RESISTANCE 3 UNITS SC (13:00)
--- NOTE | 2025-03-15 13:44 | W.PN.HOSP.TC ---
Today's Communication/Plan
-
Discharge today
Assessment / Plan
Assessment / Plan
Physical Exam
General: No Apparent Distress and Comfortable
HEENT: Normocephalic
Musculoskeletal: Other (TLSO brace in place, left arm splint placed )
Neuro: Awake, Alert, Oriented, No Motor Deficits and Nonfocal/Grossly Intact
Psych: Calm

MR T spine
Redemonstration of extensive osseous metastatic disease. Extraosseous malignant soft tissue in the spinal canal from T7 through T9 and retropulsion of the chronic pathologic compression fractures of T7 and T8 with secondary severe spinal canal
stenosis at T8 to moderate spinal canal stenosis at T7. No new pathologic compression fracture. Similar appearance of the thoracic spine and lumbar spine compared to previous MRI examinations from 01/14/2025 and 01/13/2025.

1. Acute Hypoxic Respiratory Failure - RESOLVED - related with pulmonary edema and bilateral pleural effusions
Small Bilateral Pleural Effusions
Volume Overload - Possible CHF and from low albumin
-Patient noted to be hypoxic requiring 6 L oxygen through nasal cannula in ER
-proBNP not significantly elevated. Echocardiogram was a poor study although no overt concern of heart failure
-Recent CT chest PE on 02/16 was negative for any VTE.
-small bilateral pleural effusion on imaging
-weaned off of o2 at this point. monitor
-Currently remains on room air
-Continue Lasix 10 mg daily
-Follow-up with cardiology outpatient to re-assess for any heart failure
-Will need outpatient pulmonary evaluation for PFTs and 6MWT
2. Hypocalcemia
-Corrected calcium of low for albumin.
-Patient was provided IV calcium followed by initiation of oral calcium bicarbonate pills
-PTH/vitamin D level not indicative of any abnormality
-Chemo? related. Nephro following and help appreciated
-Continue calcium 1gm BID, calcitriol 0.25 mcg daily
3. Acute hyponatremia
-Suspected multifactorial from malignancy, pain and hypervolemia related
-Continue Lasix 10 mg daily
-Continue PO fluid restriction 48 ounces daily
4. Recent Fall with left humerus fracture
Pathologic fracture left coracoid process
Nondisplaced fracture lateral left ninth rib
Thoracic spine compression deformities of indeterminate acuity
- MRI T-spine finding as above
- neurosurgery evaluated and recommended surgical correction only if patient have significant weakness developing
- I discussed case with on-call [facility]opedic surgeon who requested patient to follow-up with Dr. Chris Kunz for further management of left humeral fracture.
- TLSO bracing when patient is weightbearing/out of bed to maintain spinal alignment
- Initially was on IV Decadron 6mg q6h --> gradually reducing steroid dose everyday --> goal is to complete steroid taper with last day 03/17/25 (discussed this with on-call neurosurgeon)
- On discharge: Dexamethasone PO 2 mg on 03/16/25 and Dexamethasone 1 mg on 03/17/25
- Repeat on x-ray showing beside movement of distal humeral and no complicating factors
- Case was discussed with [facility] orthopedic surgeon who recommended against any immediate surgery with overall patient condition
- [facility] evaluated
- Malave brace had been placed for support, pain has improved significantly
5. Mild toxic encephalopathy - RESOLVED
- From high-dose of narcotics required due to significant pain
- No other ongoing infection issue
6. Non-small cell lung cancer with metastatic disease
JOHN lung nodules
Lymphadenopathy
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
On brigatinib therapy (started 02/23); s/p spinal radiation
- Hematology/oncology following-recently increased Brigatinib dose to 180 mg per day
7. Prolonged QTc
-Suspected at least partly from hypocalcemia
-Avoid/minimize QTc-prolonging medications
8. Lower extremity swelling
- Secondary to volume overload state
- Echo poor quality although no clear concern of low EF/heart failure
- Lower extremity DVT has been negative
9. Leukocytosis
- suspected steroids use related vs reactive with malignancy
10. Chronic pain and narcotic dependence
Narcotic induced constipation
-Patient is on Morphine 30mg q4h prn sev pain, morphine 15mg q12h pain.
-Continue bowel regimen
11. Constipation
-Encouraged patient to take Miralax Daily as well as Senokot-S everyday
-Abdominal X-Ray on 03/14/25 showed per radiologist: 'Moderate to severe diffuse colonic stool burden may reflect constipation'
-Asked nurse to provide patient with Dulcolax suppository on 03/14/25 (patient in agreement with this)
-If still not having bowel movement after Dulcolax suppository, can try Lactulose or enemas (patient reported warm soap and suds enema 500 cc worked well for her in the past)
-Would avoid Magnesium Citrate given patient's recent volume overload state, and she is getting Lasix
Anemia of Chronic Disease
High ALP -Likely related to bone metastases
Essential Hypertension
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
DVT Prophylaxis: Lovenox
Code Status: Full Code
DISPOSITION: Per case management communication this morning, they have not found SNF for her yet -- resent referrals and patient will need auth
On 03/09/25, I spoke to both patient and her in the patient's room; all questions and concerns were answered to satisfaction.
On 03/10/25, I spoke to both patient and her in the patient's room; all questions and concerns were answered to satisfaction.
On 03/11/25, I spoke to both patient and her in the patient's room; all questions and concerns were answered to satisfaction.
On 03/12/25, I spoke to both patient and her in the patient's room; all questions and concerns were answered to satisfaction.
On 03/13/25, I spoke to both patient and her in the patient's room; all questions and concerns were answered to satisfaction.
On 03/14/25 and 03/15/25, I spoke to both patient and her in the patient's room; all questions and concerns were answered to satisfaction.
More than 30 minutes spent in discharge including
Final examination of the patient
Summarizing hospital stay
Instructions for continuing care to all relevant caregivers
Preparation of discharge records, prescriptions, and referral forms
Total time spent (in minutes): 37
Anticipated Discharge: Today
Subjective/Interval History
-
Date of Service: March 15, 2025
Patient was seen and examined. She reported ongoing bloating at least for the past few days, no bowel movement for a few days.
Objective Data
-
Vital Signs:
Vital Signs
Temp Pulse Resp BP Pulse Ox
98.1 F 101 22 102/72 95
03/15/25 08:13 03/15/25 08:13 03/15/25 08:13 03/15/25 08:13 03/15/25 08:13
I&O
03/14/25 03/15/25 03/16/25
06:59 06:59 06:59
Intake Total 540 / 540 1740 / 1740
Balance 540 / 540 1740 / 1740
[2025-03-15] MEDS: DULCOLAX 10 MG RECTAL (15:01)
[2025-03-15 15:52] VITALS: BP 107/73
[2025-03-15] MEDS: NON-FORMULARY ITEM 180 MG PO (17:00)
== END 2025-03-15 17:25 | DRG 189 ==
LOC: 3 WEST ACU 13:06
PROVIDERS: Hospitalist; Nurse Practitioner Family; Specialist; Student in an Organized Health Care Education/Training Program; ADMITTING PHYSICIAN Hospitalist; CONSULT PHYSICIAN Internal Medicine; CONSULT PHYSICIAN Neurological Surgery; CONSULT PHYSICIAN Specialist; EMERGENCY PHYSICIAN Emergency Medicine; FAMILY PHYSICIAN Physician Assistant Medical; OTHER PHYSICIAN Internal Medicine Hematology & Oncology; OTHER PHYSICIAN Orthopaedic Surgery
DX: J96.01 Acute respiratory failure with hypoxia (principal); G92.8 Other toxic encephalopathy; C79.51 Secondary malignant neoplasm of bone; S22.32XA Fracture of one rib, left side, initial encounter for closed fracture; C34.12 Malignant neoplasm of upper lobe, left bronchus or lung; M84.522A Pathological fracture in neoplastic disease, left humerus, initial encounter for fracture; E87.1 Hypo-osmolality and hyponatremia; M84.512A Pathological fracture in neoplastic disease, left shoulder, initial encounter for fracture; M84.58XA Pathological fracture in neoplastic disease, other specified site, initial encounter for fracture; F11.20 Opioid dependence, uncomplicated; I50.32 Chronic diastolic (congestive) heart failure; R64 Cachexia; J91.8 Pleural effusion in other conditions classified elsewhere; D63.0 Anemia in neoplastic disease; I44.7 Left bundle-branch block, unspecified; I11.0 Hypertensive heart disease with heart failure; G89.3 Neoplasm related pain (acute) (chronic); E83.51 Hypocalcemia; W01.0XXA Fall on same level from slipping, tripping and stumbling without subsequent striking against object, initial encounter; E88.09 Other disorders of plasma-protein metabolism, not elsewhere classified; T40.2X5A Adverse effect of other opioids, initial encounter; K59.03 Drug induced constipation; D72.829 Elevated white blood cell count, unspecified; Z96.642 Presence of left artificial hip joint; Z92.3 Personal history of irradiation; Z87.891 Personal history of nicotine dependence; Z79.899 Other long term (current) drug therapy; Z68.22 Body mass index [BMI] 22.0-22.9, adult
CPT/HCPCS: 71045; 71046; 71275; 72157; 72158; 73060; 74018; 80048; 80053; 80069; 81003; 81015; 82040; 82306; 82310; 82330; 82947; 82962; 83605; 83690; 83735; 83880; 83935; 83970; 84075; 84100; 84484; 85025; 85027; 85610; 85730; 87086; 93005; 93306; 94640; 96374; 96375; 97110; 97112; 97116; 97163; 97167; 97530; 97535; 99285; A9575; Q9967

== ENCOUNTER → 2025-08-17 07:58 | Outpatient (REF) | payer MEDICARE, SELFPAY ==
[2025-08-17 08:24] LABS: Glucose 95 mg/dl (70-99)
== END ==
LOC: PET 07:58
PROVIDERS: ATTENDING PHYSICIAN Internal Medicine Hematology & Oncology
DX: C34.12 Malignant neoplasm of upper lobe, left bronchus or lung (principal); C79.51 Secondary malignant neoplasm of bone; C78.00 Secondary malignant neoplasm of unspecified lung; E87.1 Hypo-osmolality and hyponatremia
CPT/HCPCS: 36415; 82947